=== PATIENT | female | born 1970 | race Caucasian/White ===

== ENCOUNTER 2017-02-10 06:04 | Inpatient (IN) | payer OTHER ==
[~2017-02-10] VITALS: Ht 165.1 cm; Wt 65.0 kg
[2017-02-10] VITALS (9 sets, daily range): BP systolic 75–92; BP diastolic 45–64; PULSE 88–94; RESP 16–20; Ht 165.1 cm; Wt 65.0 kg
[2017-02-10] MEDS ORDERED: NACL 0.9% 3 ML SYG IV SCH (07:30)
[2017-02-10] MEDS ORDERED: ONDANSETRON 4 MG INJ IV PRN (07:30)
[2017-02-10] MEDS ORDERED: SOD CHLORIDE 0.9% 1,000 ML IV ONE (07:40)
[2017-02-10] MEDS: SOD CHLORIDE 0.9% 1,000 ML IV SCH ×4 (07:40→18:30)
[2017-02-10 08:17] LABS: HAAIG REFLEX REFLEX FILED
[2017-02-10 08:25] LABS: ABNORMAL IP MESSAGE 1; HEMATOCRIT 29.4 % (37.0-47.0); HEMOGLOBIN 10.1 g/dl (12.0-16.0); MEAN CORPUSCULAR HEMOGLOBIN 29.4 pg (29.0-33.0); MEAN CORPUSCULAR HGB CONC 34.4 g/dl (32.0-37.0); MEAN CORPUSCULAR VOLUME 85.7 fl (82.0-101.0); MEAN PLATELET VOLUME 10.6 fl (7.4-10.4); PLATELET COUNT 64 10^3/UL (140-415); RED BLOOD COUNT 3.43 10^6/ul (4.20-5.40); RED CELL DISTRIBUTION WIDTH 18.7 % (11.5-14.5); WHITE BLOOD COUNT 19.1 10^3/ul (4.8-10.8)
[2017-02-10 08:27] LABS: POSITIVE DIFF @See below
[2017-02-10 08:43] LABS: ALANINE AMINOTRANSFERASE 110 IU/L (13-69); ALBUMIN 1.8 g/dl (3.3-4.9); ALBUMIN/GLOBULIN RATIO 0.41; ALKALINE PHOSPHATASE 293 IU/L (42-121); ANION GAP 11 (8-16); ASPARTATE AMINO TRANSFERASE 123 IU/L (15-46); BILIRUBIN,INDIRECT 1.3 mg/dl (0-1.1); BLOOD UREA NITROGEN 59 mg/dl (7-20); CALCIUM 6.8 mg/dl (8.4-10.2); CARBON DIOXIDE 24 mmol/L (21-31); CHLORIDE 97 mmol/L (97-110); CREATININE 1.79 mg/dl (0.44-1.00); GLUCOSE 96 mg/dl (70-220); POTASSIUM 3.2 mmol/L (3.5-5.1); SODIUM 129 mmol/L (135-144); TOTAL PROTEIN 6.1 g/dl (6.1-8.1)
[2017-02-10 08:45] LABS: IRON 36 ug/dl (35-150)
[2017-02-10 08:54] LABS: TOTAL IRON BINDING CAPACITY 144 ug/dl (241-421)
[2017-02-10 09:05] LABS: ANISOCYTOSIS 2+ (0-0); HYPOCHROMASIA 1+ (0-0); MONOCYTES % (M) 2 % (0-11); PLATELET ESTIMATE SIG DECREASED; POIKILOCYTOSIS 2+ (0-0); POLYCHROMASIA 3+ (0-0)
--- NOTE | 2017-02-10 09:26 | RADRPT ---
PROCEDURE: US Abdomen. CLINICAL INDICATION: elevated LFTs TECHNIQUE: Multiple real-time images were acquired of the patient's abdomen and retroperitoneum ut ilizing a high resolution transducer. COMPARISON: None FINDINGS: The liver demonstrates increased echogenicity. The liver is normal in size and no focal solid lesio ns are seen. The liver measures 16.2 cm in length. The portal vein is patent with normal direction o f flow. No intrahepatic biliary dilatation is seen. The patient is status post cholecystectomy. The common bile duct measures 6.5 mm in maximal dimensio n. The visualized portions of the pancreas are unremarkable. The tail of the pancreas is not seen. No free fluid is identified. The right kidney is normal in size, and demonstrate normal echogenicity and cortical thickness. The right kidney measures 13.0 cm in long dimension. There is no evidence of hydronephrosis. There are no kidney stones. IMPRESSION: Fatty infiltration of the liver.. Status post cholecystectomy. RPTAT: AA .Milton Austin MD, MD Date Time Electronically viewed and signed by .Milton Austin MD, on 02/10/2017 09:25 .S/
[2017-02-10 09:32] LABS: HEPATITIS B CORE ANTIBODY NEGATIVE (NEGATIVE)
--- NOTE | 2017-02-10 10:21 | HP ---
Date/Time of Note Date/Time of Note DATE: 02/10/17 TIME: 10:15 Assessment/Plan VTE Prophylaxis VTE Prophylaxis Intervention: SCD's Assessment/Plan Assessment/Plan 47 yo F with pmhx HTN admitted for fatigue, chills, scleral icterus. Labwork notable for +Monospot, +HepC Ab, and splenomegaly. I suspect the etiology of the patient's hyperbilirubinemia (which is the cause of her scleral icterus), splenomegaly, transaminitis, and leukocytosis are all the result of acute viral mononucleosis infection. While mono does often typically result in hyperbilirubinemia, it has been described in the literature. Abd imaging without liver mass or lesion. No pancreatic mass. No biliary obstruction PLAN supportive care trend LFTs check HepC VL Check HIV repeat EBV serologies as lab dept at [facility] unable to tell me what their mono test is check CMV serologies check UA and urine culture given c/o dysuria no compelling indication for abx at this time reference Chayo Roca, Ray Reynoso, Florentino Morrison, Jacinto Hicks, Kassie Hicks, Deepak Quinn, Rodney Humphrey, Torey Richardson. Marked Hyperbilirubinemia in Infectious MononucleosisAnalysis of Laboratory Data in Seven Patients. [employer]. 1987;147(5):[id number] HPI/ROS Admit Date/Time Admit Date/Time Feb 10, 2017 at 06:25 Hx of Present Illness CC: chills, generalized feeling unwell x 3 weeks HPI 47 yo F with pmhx HTN transferred from [facility] where she presented with feeling unwell x 3 weeks and 2 days of scleral icterus. Pt reports that for the past 3 weeks she has been fatigued, has been having chills, decreased appetite, nausea. No fever. no rashes. no leg swelling. Does not recall ever previously being diagnosed with HepC. Also c/o dysuria. Soc Hx: pt denies any hx of IVDU. only previous blood transfusion was 2 years ago in the [place] SurgHx: unknown previous abd surgery (pt states "vesicle" surgery) Exam/Review of Systems Vital Signs Vitals Vital Signs Date Time Temp Pulse Resp B/P Pulse Ox O2 Delivery O2 Flow Rate FiO2 02/10/17 08:00 94 02/10/17 07:52 97.8 20 86/50 95 02/10/17 07:00 Room Air Exam Exam +scleral icterus no cervical LAD MMM EOMI lungs clear rrr abd soft with palpable liver tip no le edema OSH Lab notable for WBCs 20.3, Hgb 12.2, Pl 76 NA 128, K 3.4, Cl 93, Cr 2.3 albumin 1.5, AP 266, ALT 109, AST 132 TBili 13.6, DBili 8.3 Monospot +??? UA with small blood, large LE, many bacteria IMAGING CT AP: marked splenomegaly, 15x5 x 13 cm. no liver mass, in biliary tree dilation, no pancreatic head mass, no ascites blood cultures x 2 still in process Labs Result Diagram: 02/10/1774402/10/17 0745 Medications Medications Current Medications Sodium Chloride (NS) 1,000 ml @ 125 mls/hr Q8H IV Last administered on t 07:40; Admin Dose 125 MLS/HR; Start 02/10/17 at 07:40 Ondansetron HCl (Zofran Inj) 4 mg Q6H PRN IV NAUSEA AND/OR VOMITING; Start at 07:30 Acetaminophen (Tylenol Tab) 650 mg Q6H PRN PO PAIN LEVEL 1-3 OR FEVER; Start 02/10/17 at 07:30 LAUREN CHOI MD Feb 10, 2017 10:21
[2017-02-10] MEDS: ACETAMINOPHEN 325 MG TAB PO PRN (12:58)
[2017-02-10] MEDS: IBUPROFEN 200 MG TAB PO PRN (17:16)
[2017-02-10] MEDS ORDERED: ALBUMIN HUMAN 25% IV* ONE (19:00)
[2017-02-11 00:29] LABS: ADD UMIC YES; UR AMORPHOUS CRYSTAL FEW /HPF (NONE SEEN); UR ASCORBIC ACID NEGATIVE (NEGATIVE); UR BACTERIA FEW /HPF (NONE SEEN); UR BILIRUBIN (Dip) 2+ mg/dL (NEGATIVE); UR BLOOD (Dip) 2+ mg/dL (NEGATIVE); UR CLARITY SLIGHTLY CLOUDY (CLEAR); UR COLOR AMBER (YELLOW); UR GLUCOSE (Dip) NEGATIVE (NEGATIVE); UR KETONES (Dip) NEGATIVE (NEGATIVE); UR LEUKOCYTE ESTERASE (Dip) TRACE Leu/ul (NEGATIVE); UR NITRITE (Dip) NEGATIVE (NEGATIVE); UR RBC 23 /HPF (0-5); UR SPECIFIC GRAVITY (Dip) 1.013 (1.003-1.030); UR SQUAMOUS EPITHELIAL CELL FEW /HPF (FEW); UR TOTAL PROTEIN (Dip) 1+ mg/dl (NEGATIVE); UR UROBILINOGEN (Dip) 2+ mg/dL (NEGATIVE)
[2017-02-11] MEDS: AL HYDROX/MG HYDROX/SIMETH 30 ML CUP PO PRN (00:58)
[2017-02-11] MEDS: SOD CHLORIDE 0.9% 1,000 ML IV SCH ×2 (01:50→09:45)
[2017-02-11 02:29] VITALS: BP 90/58; RESP 16
[2017-02-11 06:22] LABS: ABNORMAL IP MESSAGE 1; HEMATOCRIT 26.7 % (37.0-47.0); HEMOGLOBIN 9.2 g/dl (12.0-16.0); MEAN CORPUSCULAR HEMOGLOBIN 29.7 pg (29.0-33.0); MEAN CORPUSCULAR HGB CONC 34.5 g/dl (32.0-37.0); MEAN CORPUSCULAR VOLUME 86.1 fl (82.0-101.0); MEAN PLATELET VOLUME 10.3 fl (7.4-10.4); PLATELET COUNT 68 10^3/UL (140-415); RED CELL DISTRIBUTION WIDTH 19.3 % (11.5-14.5); WHITE BLOOD COUNT 19.6 10^3/ul (4.8-10.8)
[2017-02-11 07:01] LABS: MAGNESIUM 1.9 mg/dl (1.7-2.5)
[2017-02-11 07:02] LABS: ALBUMIN 1.7 g/dl (3.3-4.9); ALBUMIN/GLOBULIN RATIO 0.44; BILIRUBIN,DIRECT 7.9 mg/dl (0.00-0.20); BILIRUBIN,INDIRECT 1.1 mg/dl (0-1.1); CALCIUM 6.4 mg/dl (8.4-10.2); CREATININE 1.67 mg/dl (0.44-1.00); POTASSIUM 3.2 mmol/L (3.5-5.1); TOTAL PROTEIN 5.5 g/dl (6.1-8.1)
[2017-02-11 07:23] LABS: POSITIVE DIFF @See below
[2017-02-11 08:04] VITALS: BP 97/59; RESP 16
[2017-02-11 08:52] LABS: ANISOCYTOSIS 2+ (0-0); EOSINOPHILS % (M) 1 % (0-7); HYPOCHROMASIA 1+ (0-0); MONOCYTES % (M) 3 % (0-11); PLATELET ESTIMATE DECREASED; POIKILOCYTOSIS 2+ (0-0); POLYCHROMASIA 2+ (0-0)
[2017-02-11] MEDS: FAMOTIDINE 20 MG TAB PO SCH ×2 (09:45→21:13)
[2017-02-11 12:56] LABS: INR 2.72; PROTIME 29.2 Sec (12.2-14.2); PT RATIO 2.3
[2017-02-11 12:57] LABS: PARTIAL THROMBOPLASTIN TIME 49.6 Sec (25.0-35.0)
--- NOTE | 2017-02-11 14:47 | RADRPT ---
PROCEDURE: XR chest CLINICAL INDICATION: Diminished lung bases TECHNIQUE: PA and lateral views COMPARISON: None available FINDINGS: The cardiac silhouette is at the upper limits of normal in size versus borderline enlarged. The medi astinum and pulmonary syed are otherwise unremarkable. Pulmonary vasculature is within normal limits. Bilateral costophrenic sulci blunting which may be secondary to small pleural effusions versus pleur al thickening. Bilateral lower lobe parenchymal disease, possibly from atelectasis, though pneumoni tis is also in the differential diagnosis. Scattered bilateral lung micronodular opacities could rep resent vessels on end, but lung micronodules are also in the differential diagnosis. Small nodular o pacity overlying the anterior aspect of right rib # 7 and the posterior aspect of right rib # 9 coul d be an artifact versus sclerotic finding in bone versus lung nodule. Borderline low lung volumes. Spondylosis of the visualized spine. IMPRESSION: 1. Cardiac silhouette at the upper limits of normal size versus borderline enlarged. Bilateral small pleural effusions versus pleural thickening. 2. Bilateral lower lobe parenchymal disease, possibly from atelectasis, but pneumonitis is also in t he differential diagnosis. Borderline low lung volumes. 3. Scattered bilateral lung micronodular opacities could represent vessels on end, but lung microno dules are also in the differential diagnosis. Right lower lung zone small nodular opacity could be a n artifact versus sclerotic finding in bone versus lung nodule. Compare to prior corresponding imaging studies. RPTAT: TT Physician Nicole Date Time Electronically viewed and signed by Physician Nicole on 02/11/2017 14:47 JS/
[2017-02-11 15:16] VITALS: BP 101/59; RESP 18
--- NOTE | 2017-02-11 18:38 | PN ---
Date/Time of Note Date/Time of Note DATE: 02/11/17 TIME: 18:33 Assessment/Plan VTE Prophylaxis VTE Prophylaxis Intervention: SCD's Lines/Catheters IV C[facility]ter Type (from [facility]): Peripheral IV Assessment/Plan Assessment/Plan 47 yo F with pmhx HTN admitted for fatigue, chills, scleral icterus. Labwork notable for +Monospot, +HepC Ab, and splenomegaly. Abd imaging without liver mass or lesion. No pancreatic mass. No biliary obstruction. Consider acute CMV? Labs for AIH negative thus far. Of concern is patient's splenomegaly, hypoalbuminemia and non nephrotic range proteinuria. She is also coagulopathic. Pt's labs overall are concerning for acute liver failure, etiology of which is unclear but patient without encephalopathy PLAN supportive care trend LFTs EBV serologies consistent with previous exposure and not acute infection, HIV neg; CMV serologies in process; SmAb neg. hep C VL in process add on apap level though pt has already been here for 2 days and has been having symptoms for 3 weeks HSV IgMs active UA, urine culture ng thus far. GI/hepatology consult Subjective 24 Hr Interval Summary Free Text/Dictation reports legs are now a little swollen and her abdomen feels distended pt denies any use of new vitamins/supplements in recent weeks Exam/Review of Systems Vital Signs Vitals Vital Signs Date Time Temp Pulse Resp B/P Pulse Ox O2 Delivery O2 Flow Rate FiO2 02/11/17 15:16 97.4 82 18 101/59 100 02/10/17 13:15 Room Air Intake and Output 02/10/17 02/10/17 02/11/17 15:00 23:00 07:00 Intake Total 400 ml 1500 ml Output Total 300 ml Balance 100 ml 1500 ml Exam scleral icterus not significantly improved no mrg lungs clear alpha 1 AT nl, SmAB neg, AFP nl EBV seros cw previous exposure/infection HIV neg hepA blood work with previous infection/exposure HepB bloodwork negative Additional Comments CXR Results Result Diagram: 02/11/17 0514 02/11/17 0514 Results 24 hrs Laboratory Tests Test 02/10/17 22:00 02/11/17 05:14 02/11/17 11:34 02/11/17 13:20 Urine Color JANETTE Urine Clarity SLIGHTLY CLOUDY A Urine pH 5.0 Urine Specific [place] 1.013 Urine Ketones NEGATIVE Urine Nitrite NEGATIVE Urine Bilirubin 2+ H Urine Urobilinogen 2+ H Urine Leukocyte Esterase TRACE A Urine Microscopic RBC 23 H Urine Microscopic WBC 5 Urine Squamous Epithelial Cells FEW Urine Amorphous Crystals FEW A Urine Bacteria FEW A Urine Hemoglobin 2+ H Urine Glucose NEGATIVE Urine Total Protein 1+ H 34.0 H White Blood Count 19.6 H Red Blood Count 3.10 L Hemoglobin 9.2 L Hematocrit 26.7 L Mean Corpuscular Volume 86.1 Mean Corpuscular Hemoglobin 29.7 Mean Corpuscular Hemoglobin Concent 34.5 Red Cell Distribution Width 19.3 H Platelet Count 68 L Mean Platelet Volume 10.3 Neutrophils % Segmented Neutrophils % (Manual) 74 Band Neutrophils % (Manual) 20 H Lymphocytes % Lymphocytes % (Manual) 2 L Monocytes % Monocytes % (Manual) 3 Eosinophils % Eosinophils % (Manual) 1 Basophils % Nucleated Red Blood Cells % 0.0 Neutrophils # Neutrophils # (Manual) 15.3 H Band Neutrophils # 3.9 H Absolute Lymphocytes (Manual) 0.3 L Lymphocytes # Monocytes # Absolute Monocytes (Manual) 0.5 Eosinophils # Basophils # Nucleated Red Blood Cells # Platelet Estimate DECREASED Polychromasia 2+ Hypochromasia 1+ Poikilocytosis 2+ Anisocytosis 2+ Macrocytosis 2+ Sodium Level 131 L Potassium Level 3.2 L Chloride Level 100 Carbon Dioxide Level 19 L Anion Gap 15 Blood Urea Nitrogen 53 H Creatinine 1.67 H Glucose Level 97 Calcium Level 6.4 L Phosphorus Level 5.0 H Magnesium Level 1.9 Total Bilirubin 9.0 H Direct Bilirubin 7.90 H Indirect Bilirubin 1.1 Aspartate Amino Transf (AST/SGOT) 113 H Alanine Aminotransferase (ALT/SGPT) 107 H Alkaline Phosphatase 332 H Total Protein 5.5 L Albumin 1.7 L Globulin 3.80 H Albumin/Globulin Ratio 0.44 HIV (1&2) Antibody NEGATIVE Prothrombin Time 29.2 H Prothrombin Time Ratio 2.3 INR International Normalized Ratio 2.72 Activated Partial Thromboplast Time 49.6 H Urine Random Creatinine 72.66 Test 02/11/17 14:24 Lactic Acid Level 2.1 H Medications Medications Current Medications Ondansetron HCl (Zofran Inj) 4 mg Q6H PRN IV NAUSEA AND/OR VOMITING; Start at 07:30 Acetaminophen (Tylenol Tab) 650 mg Q6H PRN PO PAIN LEVEL 1-3 OR FEVER Last administered on 02/10/17 12:58; Admin Dose 650 MG; Start 02/10/17 at 07:30 Ibuprofen (Motrin) 200 mg Q6H PRN PO PAIN OR TEMP ABOVE 38C Last administered on 02/10/17 17:16; Admin Dose 200 MG; Start 02/10/17 at 15:30 Famotidine (Pepcid) 20 mg BID PO Last administered on 02/11/17 09:45; Admin Dose 20 MG; Start 02/11/17 at 09:00 Al Hydrox/Mg Hydrox/Simethicone (Mag-Al Plus) 30 ml Q6H PRN PO GASTROINTESTINAL UPSET Last administered on 02/11/17 00:58; Admin Dose 30 ML; Start 02/11/17 at 01:00 LAUREN CHOI MD Feb 11, 2017 18:38
[2017-02-11] MEDS: IBUPROFEN 200 MG TAB PO PRN (19:53)
[2017-02-11 20:00] VITALS: BP 100/52; PULSE 89; RESP 18
[2017-02-11] MEDS: traZODone 50 MG TAB PO SCH (21:13)
[2017-02-12 02:00] VITALS: BP 110/62; PULSE 92; RESP 18
[2017-02-12 06:17] LABS: ALBUMIN 1.7 g/dl (3.3-4.9); ALBUMIN/GLOBULIN RATIO 0.42; BILIRUBIN,DIRECT 8.1 mg/dl (0.00-0.20); BILIRUBIN,INDIRECT 1.1 mg/dl (0-1.1); BILIRUBIN,TOTAL 9.2 mg/dl (0.2-1.3); CALCIUM 6.9 mg/dl (8.4-10.2); CREATININE 1.49 mg/dl (0.44-1.00); POTASSIUM 3.6 mmol/L (3.5-5.1); TOTAL PROTEIN 5.7 g/dl (6.1-8.1)
[2017-02-12 06:22] LABS: MAGNESIUM 2.1 mg/dl (1.7-2.5); PHOSPHORUS 5.2 mg/dl (2.5-4.9)
[2017-02-12 06:46] LABS: INR 2.46; PT RATIO 2.1
[2017-02-12 08:07] VITALS: BP 101/85; PULSE 82; RESP 18
[2017-02-12] MEDS: FAMOTIDINE 20 MG TAB PO SCH (08:09)
[2017-02-12] MEDS: IBUPROFEN 200 MG TAB PO PRN ×2 (08:13→19:15)
--- NOTE | 2017-02-12 09:18 | CONS ---
Date/Time of Note Date/Time of Note DATE: 02/12/17 TIME: 09:09 Assessment/Plan Assessment/Plan Chief Complaint/Hosp Course Assessment: Cholestatic jaundice Rule out CMV hepatitis Rule out biliary obstruction Doubt drug-induced Prolonged INR, concerning for significant liver dysfunction Postcholecystectomy 1996 High blood pressure Plan: Vitamin K, repeat INR CMV serologies, Ammonia MRCP Monitor liver panel Problems: Consultation Date/Type/Reason Admit Date/Time Feb 10, 2017 at 06:25 Date of Consultation: Feb 12, 2017 Type of Consultation: GI Reason for Consultation Cholestasis/jaundice Hx of Present Illness 47-year-old female hospitalized with jaundice. Initial laboratories apparently reported a positive mono test recent possibility of mono hepatitis. EBV serology is positive for IgG but negative for IgM suggesting previous exposure no acute infection. The patient does not have other symptoms suggestive of mononucleosis or Nicolle-Ruggiero virus infection. Hepatitis serology is negative for hepatitis a and B and positive for antibodies hepatitis C HCV RNA is pending. Patient is postcholecystectomy many years prior. Liver ultrasound does not show significant dilatation of the biliary tree but possibility of obstruction needs to be ruled out entirely and for this reason MRCP will be requested. In addition I will request cytomegalovirus serologies which could also be associated with cholestatic hepatitis which appears to be the presentation of this patient. At the present time the patient complains of moderate upper abdominal discomfort and some nausea when she eats heavy meals. There is no fever, chills or diaphoresis. There is no lymphocytosis. The patient is on amlodipine and trazodone which she has been taking for some time and those drugs are not associated frequently with cholestatic liver disease. If further serologies and MRCP are negative the patient may be considered for liver biopsy. Of concern her INR is elevated vitamin K will be administered failure to correct will raise some concerns about liver function. There is no evidence of encephalopathy of any degree. Ammonia levels will also be requested. Past Medical History High blood pressure Past Surgical History Cholecystectomy 1996 Family History Significant Family History: no pertinent family hx Social History Alcohol Use: none Smoking Status: Never smoker Drug Use: none Exam/Review of Systems Vital Signs Vitals Vital Signs Date Time Temp Pulse Resp B/P Pulse Ox O2 Delivery O2 Flow Rate FiO2 02/12/17 08:07 98.7 82 18 101/85 98 Room Air Intake and Output 02/11/17 02/11/17 02/12/17 15:00 23:00 07:00 Intake Total 620 ml 1760 ml 360 ml Output Total 200 ml 700 ml Balance 420 ml 1060 ml 360 ml Exam PHYSICAL EXAMINATION: GENERAL: Well developed, well nourished, alert & oriented x 3, in no acute distress SKIN: Jaundice. Otherwise no lesions, no stigmata chronic liver disease, no evidence of bleeding diathesis LYMPHATIC: No palpable lymphadenopathy. HEAD: Normocephalic, atraumatic, no tenderness. EYES: Pupils equal reactive to light and accommodation, full extraocular movements, sclera clear, non-icteric, no discharge. EARS/NOSE AND THROAT: Ears normal, nose normal, oropharynx normal, oral membranes well hydrated without lesions. NECK: Supple, no masses, thyroid normal, JVP within normal limits, carotids normal without bruits. CHEST: Inspection within normal limits. CARDIOVASCULAR: Heart: Regular rate and rhythm, no murmurs, gallops or rubs. Peripheral pulses present within normal limits, no cyanosis, clubbing or edemas. No pulsatile abdominal mass RESPIRATORY: Lungs clear to auscultation and percussion, no wheezing, no rubs GASTROINTESTINAL AND LIVER: Abdomen: Soft, mild tenderness in the epigastrium and right upper quadrant, non-distended, no hernias, no masses, no organomegaly , no ascites, no Taylor sign, no guarding, no rebound tenderness, normoactive bowel sounds. Rectal: Deferred. GENITOURINARY: [Female genitalia within normal limits.] EXTREMITIES: No cyanosis, clubbing or edema. [MUSCULO-SKELETAL: Gait and station within normal limits, range of motion adequate.] [NEUROLOGIC: Cranial nerves II-XII intact, Motor within normal limits, Sensory within normal limits. Reflexes within normal limits. PSYCHIATRIC: Alert & oriented x 3, mood/affect/judgement adequate] Results Result Diagram: 02/11/17 0514 02/12/17 0514 Results 24 hrs Laboratory Tests Test 02/11/17 11:34 02/11/17 13:20 02/11/17 14:24 02/11/17 20:19 Prothrombin Time 29.2 H Prothrombin Time Ratio 2.3 INR International Normalized Ratio 2.72 Activated Partial Thromboplast Time 49.6 H Urine Random Creatinine 72.66 Urine Total Protein 34.0 H Lactic Acid Level 2.1 H Gamma Glutamyl Transpeptidase 293 H Acetaminophen Level < 10.0 L Test 02/12/17 05:14 Prothrombin Time 27.0 H Prothrombin Time Ratio 2.1 INR International Normalized Ratio 2.46 Sodium Level 131 L Potassium Level 3.6 Chloride Level 103 Carbon Dioxide Level 19 L Anion Gap 13 Blood Urea Nitrogen 48 H Creatinine 1.49 H Glucose Level 98 Calcium Level 6.9 L Phosphorus Level 5.2 H Magnesium Level 2.1 Total Bilirubin 9.2 H Direct Bilirubin 8.10 H Indirect Bilirubin 1.1 Aspartate Amino Transf (AST/SGOT) 129 H Alanine Aminotransferase (ALT/SGPT) 116 H Alkaline Phosphatase 429 H Total Protein 5.7 L Albumin 1.7 L Globulin 4.00 H Albumin/Globulin Ratio 0.42 Medications Medications Current Medications Ondansetron HCl (Zofran Inj) 4 mg Q6H PRN IV NAUSEA AND/OR VOMITING; Start at 07:30 Acetaminophen (Tylenol Tab) 650 mg Q6H PRN PO PAIN LEVEL 1-3 OR FEVER Last administered on 02/10/17 12:58; Admin Dose 650 MG; Start 02/10/17 at 07:30 Ibuprofen (Motrin) 200 mg Q6H PRN PO PAIN OR TEMP ABOVE 38C Last administered on 02/12/17 08:13; Admin Dose 200 MG; Start 02/10/17 at 15:30 Famotidine (Pepcid) 20 mg BID PO Last administered on 02/12/17 08:09; Admin Dose 20 MG; Start 02/11/17 at 09:00 Al Hydrox/Mg Hydrox/Simethicone (Mag-Al Plus) 30 ml Q6H PRN PO GASTROINTESTINAL UPSET Last administered on 02/11/17 00:58; Admin Dose 30 ML; Start 02/11/17 at 01:00 Trazodone HCl (Desyrel) 50 mg HS PO Last administered on 02/11/17 21:13; Admin Dose 50 MG; Start 02/11/17 at 21:00 Morphine Sulfate (morphine) 1 mg Q4H PRN IV pain; Start 02/11/17 at 19:30 UNA BRADSHAW MD Feb 12, 2017 09:18
[2017-02-12] MEDS: PHYTONADIONE 10 MG/ML INJ SC SCH ×2 (10:33→21:04)
[2017-02-12 11:00] LABS: INR 2.48; PROTIME 27.1 Sec (12.2-14.2); PT RATIO 2.1
--- NOTE | 2017-02-12 16:30 | PN ---
Date/Time of Note Date/Time of Note DATE: 02/12/17 TIME: 16:28 Assessment/Plan VTE Prophylaxis VTE Prophylaxis Intervention: SCD's Lines/Catheters IV Catheter Type (from Nrsg): Peripheral IV Assessment/Plan Assessment/Plan 47 yo F with pmhx HTN admitted for fatigue, chills, scleral icterus found to have evidence of hepatic dysfunction of unclear etiology (hyperbilirubinemia, transaminitis, coagulopathy) PLAN much appreciate GI/hepatology assistance. MRCP pending supportive care trend LFTs EBV serologies consistent with previous exposure and not acute infection, HIV neg; CMV serologies in process; SmAb neg. hep C VL in process, apap level negative, HSV IgMs active UA, urine culture negative. consider repeating UA closer to discharge Subjective 24 Hr Interval Summary Free Text/Dictation abd pain unchanged Exam/Review of Systems Vital Signs Vitals Vital Signs Date Time Temp Pulse Resp B/P Pulse Ox O2 Delivery O2 Flow Rate FiO2 02/12/17 08:07 98.7 82 18 101/85 98 Room Air Intake and Output 02/11/17 02/11/17 02/12/17 15:00 23:00 07:00 Intake Total 620 ml 1760 ml 360 ml Output Total 200 ml 700 ml Balance 420 ml 1060 ml 360 ml Exam jaundiced responds to questions appropriately-->no evidence of encephalopathy no mrg abd soft no rashes Results Result Diagram: 02/11/1714 02/12/1714 Results 24 hrs Laboratory Tests Test 02/11/17 20:19 02/12/17 05:14 02/12/17 10:02 Gamma Glutamyl Transpeptidase 293 H Acetaminophen Level < 10.0 L Prothrombin Time 27.0 H 27.1 H Prothrombin Time Ratio 2.1 2.1 INR International Normalized Ratio 2.46 2.48 Sodium Level 131 L Potassium Level 3.6 Chloride Level 103 Carbon Dioxide Level 19 L Anion Gap 13 Blood Urea Nitrogen 48 H Creatinine 1.49 H Glucose Level 98 Calcium Level 6.9 L Phosphorus Level 5.2 H Magnesium Level 2.1 Total Bilirubin 9.2 H Direct Bilirubin 8.10 H Indirect Bilirubin 1.1 Aspartate Amino Transf (AST/SGOT) 129 H Alanine Aminotransferase (ALT/SGPT) 116 H Alkaline Phosphatase 429 H Total Protein 5.7 L Albumin 1.7 L Globulin 4.00 H Albumin/Globulin Ratio 0.42 Ammonia 72 H Medications Medications Current Medications Ondansetron HCl (Zofran Inj) 4 mg Q6H PRN IV NAUSEA AND/OR VOMITING; Start at 07:30 Acetaminophen (Tylenol Tab) 650 mg Q6H PRN PO PAIN LEVEL 1-3 OR FEVER Last administered on 02/10/17 12:58; Admin Dose 650 MG; Start 02/10/17 at 07:30 Ibuprofen (Motrin) 200 mg Q6H PRN PO PAIN OR TEMP ABOVE 38C Last administered on 02/12/17 08:13; Admin Dose 200 MG; Start 02/10/17 at 15:30 Al Hydrox/Mg Hydrox/Simethicone (Mag-Al Plus) 30 ml Q6H PRN PO GASTROINTESTINAL UPSET Last administered on 02/11/17 00:58; Admin Dose 30 ML; Start 02/11/17 at 01:00 Trazodone HCl (Desyrel) 50 mg HS PO Last administered on 02/11/17 21:13; Admin Dose 50 MG; Start 02/11/17 at 21:00 Morphine Sulfate (morphine) 1 mg Q4H PRN IV pain; Start 02/11/17 at 19:30 Phytonadione (Vitamin K) 10 mg Q12 SC Last administered on 02/12/17 10:33; Admin Dose 10 MG; Start 02/12/17 at 09:30; Stop 02/14/17 at 00:00 LAUREN CHOI MD Feb 12, 2017 16:30
[2017-02-12 20:00] VITALS: BP 82/51; PULSE 79; RESP 18
[2017-02-12] MEDS: traZODone 50 MG TAB PO SCH (21:03)
--- NOTE | 2017-02-12 21:27 | RADRPT ---
PROCEDURE: MRCP. CLINICAL INDICATION: Elevated liver function tests. Jaundice. TECHNIQUE: MRCP was performed. The following sequences were obtained: Three plane gradient echo localizers, coronal gradient echo images, breath hold axial T2-weighted fat saturation images, le nal T2-weighted images, axial 3-D LAVA images, axial T2-weighted breath hold fast spin echo images, and 3-D coronal rotating MIP images of the biliary tree. COMPARISON: Right upper quadrant abdomen ultrasound dated 02/10/2017. FINDINGS: This is a limited study due to artifact overlying the liver hilum region related to dielectric effec t artifact. The liver is normal in size. There is normal signal intensity within the liver. There is no focal hepatic lesion. The spleen is enlarged. There is mild ascites and subcutaneous adipose tissue edema. The gallbladder is surgically absent. The visualized portions of the bile ducts are normal. However, there is some artifact overlying the bile ducts. The pancreatic duct is grossly normal. The kidneys are grossly normal. The abdominal aorta is not dilated. IMPRESSION: 1. Limited study due to artifact as described above. 2. Splenomegaly. 3. Mild ascites and subcutaneous adipose tissue edema. 4. Status post cholecystectomy. 5. Grossly normal appearance of the bile ducts. RPTAT: QQ .Jesse Watson MD, MD Date Time Electronically viewed and signed by .Jesse Watson MD, on 02/12/2017 21:26 .R/
[2017-02-13] MEDS: IBUPROFEN 200 MG TAB PO PRN ×2 (01:40→09:35)
[2017-02-13 02:00] VITALS: BP 99/56; PULSE 80; RESP 18
[2017-02-13 05:50] LABS: ABNORMAL IP MESSAGE 1; BASOPHILS % 0.4 % (0.0-2.0); EOSINOPHILS # 0.1 10^3/ul (0.0-0.5); EOSINOPHILS % 0.7 % (0.0-7.0); HEMATOCRIT 25.7 % (37.0-47.0); LYMPHOCYTES # 0.6 10^3/ul (0.8-2.9); LYMPHOCYTES % 7.1 % (15.0-51.0); MEAN CORPUSCULAR HEMOGLOBIN 29.7 pg (29.0-33.0); MEAN CORPUSCULAR VOLUME 84.8 fl (82.0-101.0); MEAN PLATELET VOLUME 9.6 fl (7.4-10.4); MONOCYTE # 0.8 10^3/ul (0.3-0.9); MONOCYTES % 9.1 % (0.0-11.0); NEUTROPHIL # 6.8 10^3/ul (1.6-7.5); NEUTROPHILS % 80.6 % (39.0-77.0); PLATELET COUNT 81 10^3/UL (140-415); RED BLOOD COUNT 3.03 10^6/ul (4.20-5.40); RED CELL DISTRIBUTION WIDTH 19.7 % (11.5-14.5); WHITE BLOOD COUNT 8.4 10^3/ul (4.8-10.8)
[2017-02-13 06:00] LABS: POSITIVE DIFF @See below
[2017-02-13 07:11] LABS: ALBUMIN 1.6 g/dl (3.3-4.9); ALBUMIN/GLOBULIN RATIO 0.37; BILIRUBIN,DIRECT 8.3 mg/dl (0.00-0.20); BILIRUBIN,INDIRECT 1.4 mg/dl (0-1.1); BILIRUBIN,TOTAL 9.7 mg/dl (0.2-1.3); CALCIUM 7.3 mg/dl (8.4-10.2); CREATININE 1.46 mg/dl (0.44-1.00); POTASSIUM 3.7 mmol/L (3.5-5.1); TOTAL PROTEIN 5.9 g/dl (6.1-8.1)
[2017-02-13 07:16] LABS: MAGNESIUM 2.1 mg/dl (1.7-2.5); PHOSPHORUS 4.8 mg/dl (2.5-4.9)
[2017-02-13 08:03] VITALS: BP 159/84; RESP 14
[2017-02-13] MEDS: PHYTONADIONE 10 MG/ML INJ SC SCH ×2 (09:35→21:27)
--- NOTE | 2017-02-13 11:58 | PN ---
Date/Time of Note Date/Time of Note DATE: 02/13/17 TIME: 11:49 Assessment/Plan VTE Prophylaxis VTE Prophylaxis Intervention: SCD's Lines/Catheters IV [facility]from [facility]): Saline Lock Assessment/Plan Chief Complaint/Hosp Course Assessment/Plan: 47 yo F with pmhx HTN admitted for fatigue, chills, scleral icterus found to have evidence of hepatic dysfunction of unclear etiology ( hyperbilirubinemia, transaminitis, coagulopathy) 1. weakness: Patient with hepatic dysfunction. Slowly improving, patient still with jaundice and elevated LFT's. Much appreciate GI/hepatology assistance. MRCP results noted below. Patient with positive IgG EBV titer, consistent with previous exposure and not acute infection. HIV neg; CMV serologies in process; SmAb neg. hep C VL in process, apap level negative, HSV IgMs. -Continue supportive care - trend LFTs -Follow-up GI recommendations -Consider PT eval 2. ESLD -patient again with elevated liver function tests, positive jaundice, also elevated ammonia levels, but awake and alert answering questions. -Trend ammonia levels, consider adding low-dose lactulose. 3. WILLIAM -slowly improving, still present. Will cont to monitor Problems: Subjective 24 Hr Interval Summary Free Text/Dictation Patient complaining of some abdominal pain this morning. Exam/Review of Systems Vital Signs Vitals Vital Signs Date Time Temp Pulse Resp B/P Pulse Ox O2 Delivery O2 Flow Rate FiO2 02/13/17 08:03 97.9 72 14 159/84 98 02/13/17 02:00 Room Air Intake and Output 02/12/17 02/12/17 02/13/17 15:00 23:00 07:00 Intake Total 500 ml Balance 500 ml Exam responds to questions appropriately-->no evidence of encephalopathy + jaundice Pupils equal round reactive to light, extra muscles intact Supple no mrg abd soft no rashes Results Result Diagram: 02/13/17 0454 02/13/17 0454 Results 24 hrs Laboratory Tests Test 02/13/17 04:54 White Blood Count 8.4 # Red Blood Count 3.03 L Hemoglobin 9.0 L Hematocrit 25.7 L Mean Corpuscular Volume 84.8 Mean Corpuscular Hemoglobin 29.7 Mean Corpuscular Hemoglobin Concent 35.0 Red Cell Distribution Width 19.7 H Platelet Count 81 L Mean Platelet Volume 9.6 Neutrophils % 80.6 H Lymphocytes % 7.1 L Monocytes % 9.1 Eosinophils % 0.7 Basophils % 0.4 Nucleated Red Blood Cells % 0.0 Neutrophils # 6.8 Lymphocytes # 0.6 L Monocytes # 0.8 Eosinophils # 0.1 Basophils # 0.0 Nucleated Red Blood Cells # 0.0 Sodium Level 136 Potassium Level 3.7 Chloride Level 107 Carbon Dioxide Level 23 Anion Gap 10 Blood Urea Nitrogen 43 H Creatinine 1.46 H Glucose Level 93 Calcium Level 7.3 L Phosphorus Level 4.8 Magnesium Level 2.1 Total Bilirubin 9.7 H Direct Bilirubin 8.30 H Indirect Bilirubin 1.4 H Aspartate Amino Transf (AST/SGOT) 126 H Alanine Aminotransferase (ALT/SGPT) 117 H Alkaline Phosphatase 416 H Total Protein 5.9 L Albumin 1.6 L Globulin 4.30 H Albumin/Globulin Ratio 0.37 Medications Medications Current Medications Ondansetron HCl (Zofran Inj) 4 mg Q6H PRN IV NAUSEA AND/OR VOMITING; Start at 07:30 Acetaminophen (Tylenol Tab) 650 mg Q6H PRN PO PAIN LEVEL 1-3 OR FEVER Last administered on 02/10/17 12:58; Admin Dose 650 MG; Start 02/10/17 at 07:30 Ibuprofen (Motrin) 200 mg Q6H PRN PO PAIN OR TEMP ABOVE 38C Last administered on 02/13/17 09:35; Admin Dose 200 MG; Start 02/10/17 at 15:30 Al Hydrox/Mg Hydrox/Simethicone (Mag-Al Plus) 30 ml Q6H PRN PO GASTROINTESTINAL UPSET Last administered on 02/11/17 00:58; Admin Dose 30 ML; Start 02/11/17 at 01:00 Trazodone HCl (Desyrel) 50 mg HS PO Last administered on 02/12/17 21:03; Admin Dose 50 MG; Start 02/11/17 at 21:00 Morphine Sulfate (morphine) 1 mg Q4H PRN IV pain; Start 02/11/17 at 19:30 Phytonadione (Vitamin K) 10 mg Q12 SC Last administered on 02/13/17 09:35; Admin Dose 10 MG; Start 02/12/17 at 09:30; Stop 02/14/17 at 00:00 LORE HOUSTON Feb 13, 2017 11:58
[2017-02-13 13:39] VITALS: BP 97/53; RESP 12
[2017-02-13] MEDS: LACTULOSE 30ML CUP PO SCH ×2 (13:43→21:20)
[2017-02-13 19:34] VITALS: BP 103/63; RESP 16
[2017-02-13] MEDS: traZODone 50 MG TAB PO SCH (21:20)
[2017-02-14 01:48] VITALS: BP 105/60; RESP 16
[2017-02-14] MEDS: LACTULOSE 30ML CUP PO SCH ×3 (05:47→22:58)
[2017-02-14 06:30] LABS: ABNORMAL IP MESSAGE 1; HEMATOCRIT 25.5 % (37.0-47.0); HEMOGLOBIN 8.9 g/dl (12.0-16.0); MEAN CORPUSCULAR HEMOGLOBIN 29.6 pg (29.0-33.0); MEAN CORPUSCULAR HGB CONC 34.9 g/dl (32.0-37.0); MEAN CORPUSCULAR VOLUME 84.7 fl (82.0-101.0); MEAN PLATELET VOLUME 9.9 fl (7.4-10.4); PLATELET COUNT 94 10^3/UL (140-415); RED BLOOD COUNT 3.01 10^6/ul (4.20-5.40); WHITE BLOOD COUNT 7.8 10^3/ul (4.8-10.8)
[2017-02-14 06:59] LABS: POSITIVE DIFF @See below
[2017-02-14 07:03] LABS: CALCIUM 7.5 mg/dl (8.4-10.2); CREATININE 1.17 mg/dl (0.44-1.00)
[2017-02-14 07:13] LABS: MAGNESIUM 1.9 mg/dl (1.7-2.5); PHOSPHORUS 4.5 mg/dl (2.5-4.9)
[2017-02-14 07:41] LABS: ALBUMIN 1.7 g/dl (3.3-4.9); BILIRUBIN,DIRECT 9.3 mg/dl (0.00-0.20); BILIRUBIN,INDIRECT 1.5 mg/dl (0-1.1); BILIRUBIN,TOTAL 10.8 mg/dl (0.2-1.3); TOTAL PROTEIN 6.1 g/dl (6.1-8.1)
[2017-02-14 07:57] VITALS: BP 95/53; RESP 12
[2017-02-14 09:43] LABS: ANISOCYTOSIS 2+ (0-0); BASOPHILS % (M) 1 % (0-2); HYPOCHROMASIA 1+ (0-0); MONOCYTES % (M) 3 % (0-11); PLATELET ESTIMATE DECREASED; POIKILOCYTOSIS 2+ (0-0); POLYCHROMASIA 3+ (0-0); PROMYELOCYTES % (M) 1 % (0-0); REACTIVE LYMPHOCYTES% (M) 2 % (0-0)
--- NOTE | 2017-02-14 11:43 | PN ---
Date/Time of Note Date/Time of Note DATE: 02/14/17 TIME: 11:41 Assessment/Plan VTE Prophylaxis VTE Prophylaxis Intervention: SCD's Lines/Catheters IV [facility] Type (from [facility]): Saline Lock Assessment/Plan Chief Complaint/Hosp Course Assessment/Plan: 47 yo F with pmhx HTN admitted for fatigue, chills, scleral icterus found to have evidence of hepatic dysfunction of unclear etiology ( hyperbilirubinemia, transaminitis, coagulopathy), apparently with recent mononucleosis infection as well. 1. weakness: Patient with hepatic dysfunction. Still with jaundice and elevated LFT's. Much appreciate GI/hepatology assistance. MRCP results noted below. Patient with positive IgG EBV titer, consistent with previous exposure and not acute infection. HIV neg; CMV serologies in process; SmAb neg. hep C VL in process, apap level negative, HSV IgMs. -Continue supportive care - trend LFTs -Follow-up GI recommendations -Consider PT eval 2. ESLD -patient again with elevated liver function tests, positive jaundice, also elevated ammonia levels, but awake and alert answering questions. -Trend ammonia levels, continue low-dose lactulose. 3. WILLIAM -slowly improving, still present. Will cont to monitor 4. Lower extremity pain and swelling: Unclear source, possibly secondary to patient's hepatic inflammation, also want to rule out DVT. Patient denies any history of any cardiac disease -Keep legs elevated, IV Lasix 20 mg 1, check lower extremity Doppler studies as well Problems: Subjective 24 Hr Interval Summary Free Text/Dictation Patient has some complaints of lower extremity pain and swelling. Exam/Review of Systems Vital Signs Vitals Vital Signs Date Time Temp Pulse Resp B/P Pulse Ox O2 Delivery O2 Flow Rate FiO2 02/14/17 07:57 98.8 85 12 95/53 100 02/13/17 02:00 Room Air Intake and Output 02/13/17 02/13/17 02/14/17 15:00 23:00 07:00 Intake Total 760 ml 600 ml Output Total 600 ml 1100 ml Balance 160 ml -500 ml Exam responds to questions appropriately-->no evidence of encephalopathy + jaundice Pupils equal round reactive to light, extra muscles intact Supple no mrg abd soft Trace pitting edema bilateral lower extremities to the mid calves Results Result Diagram: 02/14/17 0545 02/14/17 0545 Results 24 hrs Laboratory Tests Test 02/14/17 05:45 02/14/17 07:35 White Blood Count 7.8 Red Blood Count 3.01 L Hemoglobin 8.9 L Hematocrit 25.5 L Mean Corpuscular Volume 84.7 Mean Corpuscular Hemoglobin 29.6 Mean Corpuscular Hemoglobin Concent 34.9 Red Cell Distribution Width 20.0 H Platelet Count 94 L Mean Platelet Volume 9.9 Neutrophils % Segmented Neutrophils % (Manual) 76 Band Neutrophils % (Manual) 8 H Lymphocytes % Lymphocytes % (Manual) 9 L Reactive Lymphocytes % (Manual) 2 H Monocytes % Monocytes % (Manual) 3 Eosinophils % Basophils % Basophils % (Manual) 1 Promyelocytes % (Manual) 1 H Nucleated Red Blood Cells % 0.0 Neutrophils # Neutrophils # (Manual) 6.0 Band Neutrophils # 0.6 Absolute Lymphocytes (Manual) 0.7 L Lymphocytes # Reactive Lymphocytes # 0.1 H Monocytes # Absolute Monocytes (Manual) 0.2 L Eosinophils # Basophils # Basophils # (Manual) 0.0 Promyelocytes # 0.0 Nucleated Red Blood Cells # Platelet Estimate DECREASED Polychromasia 3+ Hypochromasia 1+ Poikilocytosis 2+ Anisocytosis 2+ Macrocytosis 2+ Sodium Level 138 Potassium Level 4.0 Chloride Level 108 Carbon Dioxide Level 24 Anion Gap 10 Blood Urea Nitrogen 33 H Creatinine 1.17 H Glucose Level 94 Calcium Level 7.5 L Phosphorus Level 4.5 Magnesium Level 1.9 Total Bilirubin 10.8 H Direct Bilirubin 9.30 H Indirect Bilirubin 1.5 H Aspartate Amino Transf (AST/SGOT) 125 H Alanine Aminotransferase (ALT/SGPT) 110 H Alkaline Phosphatase 406 H Ammonia 42 H Total Protein 6.1 Albumin 1.7 L Lab Scanned Report REFERENCE LAB Medications Medications Current Medications Ondansetron HCl (Zofran Inj) 4 mg Q6H PRN IV NAUSEA AND/OR VOMITING; Start at 07:30 Acetaminophen (Tylenol Tab) 650 mg Q6H PRN PO PAIN LEVEL 1-3 OR FEVER Last administered on 02/10/17 12:58; Admin Dose 650 MG; Start 02/10/17 at 07:30 Ibuprofen (Motrin) 200 mg Q6H PRN PO PAIN OR TEMP ABOVE 38C Last administered on 02/13/17 09:35; Admin Dose 200 MG; Start 02/10/17 at 15:30; Status Future Hold Al Hydrox/Mg Hydrox/Simethicone (Mag-Al Plus) 30 ml Q6H PRN PO GASTROINTESTINAL UPSET Last administered on 02/11/17 00:58; Admin Dose 30 ML; Start 02/11/17 at 01:00 Trazodone HCl (Desyrel) 50 mg HS PO Last administered on 02/13/17 21:20; Admin Dose 50 MG; Start 02/11/17 at 21:00 Morphine Sulfate (morphine) 1 mg Q4H PRN IV pain; Start 02/11/17 at 19:30 Lactulose (Enulose) 10 gm Q8 PO Last administered on 02/14/17 05:47; Admin Dose 10 GM; Start 02/13/17 at 14:00 Furosemide (Lasix) 20 mg ONCE ONCE IV ; Start 02/14/17 at 12:00; Stop at 12:01; Status LORE LEWIS Feb 14, 2017 11:43
[2017-02-14] MEDS ORDERED: FUROSEMIDE 20 MG INJ IV ONE (12:00)
[2017-02-14] MEDS: morphine 2 MG INJ IV PRN (12:15)
[2017-02-14 12:16] VITALS: BP 96/62; PULSE 90; RESP 16
[2017-02-14 13:17] LABS: CYTOMEGALOVIRUS ANTIBODY (IGG) >10.00 U/mL; CYTOMEGALOVIRUS ANTIBODY (IGM) <30.00 AU/mL
[2017-02-14 13:17] LABS: CYTOMEGALOVIRUS ANTIBODY (IGG) >10.00 U/mL; CYTOMEGALOVIRUS ANTIBODY (IGM) <30.00 AU/mL
[2017-02-14 14:13] VITALS: BP 104/58; RESP 16
--- NOTE | 2017-02-14 14:48 | PN ---
Date/Time of Note Date/Time of Note DATE: 02/14/17 TIME: 14:43 Assessment/Plan VTE Prophylaxis VTE Prophylaxis Intervention: SCD's Lines/Catheters IV Catheter Type (from [facility]): Saline Lock Assessment/Plan Chief Complaint/Hosp Course Assessment: Cholestatic jaundice Rule out CMV hepatitis Rule out biliary obstruction Doubt drug-induced Prolonged INR, concerning for significant liver dysfunction Postcholecystectomy 1996 High blood pressure Plan: Will check INR tomorrow morning CMV serologies IgM negative, IgG positive EBV IgM negative, IgG positive Plan for liver bx if INR appropriate Ammonia 42 MRCP- negative for CBD obstruction Monitor liver panel remain elevated with min change Pt seen in collaboration with Dr. Toledo Subjective: Course reviewed with nursing staff Patient interviewed and examined All labs, imaging and other results reviewed The patient resting in bed, no c/o abd pain, reviewed results of MRCP and lab work, HEP C AB reactive RNA not detected. Discussed possibility of Liver bx in near future. PHYSICAL EXAMINATION: GENERAL: Well developed, well nourished, alert & oriented x 3, in no acute distress SKIN: Jaundice. Otherwise no lesions, no stigmata chronic liver disease, no evidence of bleeding diathesis LYMPHATIC: No palpable lymphadenopathy. HEAD: Normocephalic, atraumatic, no tenderness. EYES: Pupils equal reactive to light and accommodation, full extraocular movements, sclera clear, non-icteric, no discharge. EARS/NOSE AND THROAT: Ears normal, nose normal, oropharynx normal, oral membranes well hydrated without lesions. NECK: Supple, no masses, thyroid normal, JVP within normal limits, carotids normal without bruits. CHEST: Inspection within normal limits. CARDIOVASCULAR: Heart: Regular rate and rhythm, no murmurs, gallops or rubs. Peripheral pulses present within normal limits, no cyanosis, clubbing or edemas. No pulsatile abdominal mass RESPIRATORY: Lungs clear to auscultation and percussion, no wheezing, no rubs GASTROINTESTINAL AND LIVER: Abdomen: Soft, mild tenderness in the epigastrium and right upper quadrant, non-distended, no hernias, no masses, no Taylor sign, no guarding, no rebound tenderness, normoactive bowel sounds. Rectal: Deferred. GENITOURINARY: Female genitalia within normal limits. EXTREMITIES: BLE edema. Problems: Exam/Review of Systems Vital Signs Vitals Vital Signs Date Time Temp Pulse Resp B/P Pulse Ox O2 Delivery O2 Flow Rate FiO2 02/14/17 14:13 97.6 87 16 104/58 99 02/14/17 12:16 Room Air Intake and Output 02/13/17 02/13/17 02/14/17 14:59 22:59 06:59 Intake Total 760 ml 600 ml Output Total 600 ml 1100 ml Balance 160 ml -500 ml Results Result Diagram: 02/14/17 0545 02/14/17 0545 Results 24 hrs Laboratory Tests Test 02/14/17 05:45 02/14/17 07:35 White Blood Count 7.8 Red Blood Count 3.01 L Hemoglobin 8.9 L Hematocrit 25.5 L Mean Corpuscular Volume 84.7 Mean Corpuscular Hemoglobin 29.6 Mean Corpuscular Hemoglobin Concent 34.9 Red Cell Distribution Width 20.0 H Platelet Count 94 L Mean Platelet Volume 9.9 Neutrophils % Segmented Neutrophils % (Manual) 76 Band Neutrophils % (Manual) 8 H Lymphocytes % Lymphocytes % (Manual) 9 L Reactive Lymphocytes % (Manual) 2 H Monocytes % Monocytes % (Manual) 3 Eosinophils % Basophils % Basophils % (Manual) 1 Promyelocytes % (Manual) 1 H Nucleated Red Blood Cells % 0.0 Neutrophils # Neutrophils # (Manual) 6.0 Band Neutrophils # 0.6 Absolute Lymphocytes (Manual) 0.7 L Lymphocytes # Reactive Lymphocytes # 0.1 H Monocytes # Absolute Monocytes (Manual) 0.2 L Eosinophils # Basophils # Basophils # (Manual) 0.0 Promyelocytes # 0.0 Nucleated Red Blood Cells # Platelet Estimate DECREASED Polychromasia 3+ Hypochromasia 1+ Poikilocytosis 2+ Anisocytosis 2+ Macrocytosis 2+ Sodium Level 138 Potassium Level 4.0 Chloride Level 108 Carbon Dioxide Level 24 Anion Gap 10 Blood Urea Nitrogen 33 H Creatinine 1.17 H Glucose Level 94 Calcium Level 7.5 L Phosphorus Level 4.5 Magnesium Level 1.9 Total Bilirubin 10.8 H Direct Bilirubin 9.30 H Indirect Bilirubin 1.5 H Aspartate Amino Transf (AST/SGOT) 125 H Alanine Aminotransferase (ALT/SGPT) 110 H Alkaline Phosphatase 406 H Ammonia 42 H Total Protein 6.1 Albumin 1.7 L Lab Scanned Report REFERENCE LAB Medications Medications Current Medications Ondansetron HCl (Zofran Inj) 4 mg Q6H PRN IV NAUSEA AND/OR VOMITING; Start at 07:30 Acetaminophen (Tylenol Tab) 650 mg Q6H PRN PO PAIN LEVEL 1-3 OR FEVER Last administered on 02/10/17 12:58; Admin Dose 650 MG; Start 02/10/17 at 07:30 Ibuprofen (Motrin) 200 mg Q6H PRN PO PAIN OR TEMP ABOVE 38C Last administered on 02/13/17 09:35; Admin Dose 200 MG; Start 02/10/17 at 15:30; Status Future Hold Al Hydrox/Mg Hydrox/Simethicone (Mag-Al Plus) 30 ml Q6H PRN PO GASTROINTESTINAL UPSET Last administered on 02/11/17 00:58; Admin Dose 30 ML; Start 02/11/17 at 01:00 Trazodone HCl (Desyrel) 50 mg HS PO Last administered on 02/13/17 21:20; Admin Dose 50 MG; Start 02/11/17 at 21:00 Morphine Sulfate (morphine) 1 mg Q4H PRN IV pain Last administered on 12:15; Admin Dose 1 MG; Start 02/11/17 at 19:30 Lactulose (Enulose) 10 gm Q8 PO Last administered on 02/14/17 05:47; Admin Dose 10 GM; Start 02/13/17 at 14:00 SHIREEN TREVIZO Feb 14, 2017 14:48
--- NOTE | 2017-02-14 15:49 | RADRPT ---
PROCEDURE: US bilateral lower extremity venous CLINICAL INDICATION: Bilateral lower extremity edema TECHNIQUE: Multiple longitudinal and transverse images of the bilateral lower extremity veins were obtained with foster scale and color Doppler imaging. 2D grayscale measurements with compression, col or Doppler flow, and augmentation was performed. The calf veins were interrogated as well. COMPARISON: None available FINDINGS: The bilateral common femoral, femoral, and popliteal veins are patent and without evidence of fillin g defects. All these veins have normal spectral wave forms, fill with color signal, are compressibl e, and have augmentation of blood flow with compression. The visualized upper calf veins (posterior tibial and peroneal) are patent and without evidence of f illing defects; these veins fill with color signal and are compressible. IMPRESSION: 1. No evidence of deep vein thrombosis involving either lower extremity RPTAT: TT Physician Nicole Date Time Electronically viewed and signed by Physician Nicole on 02/14/2017 15:49 PRISCILA/
[2017-02-14 19:34] VITALS: BP 109/61; RESP 16
[2017-02-14] MEDS: traZODone 50 MG TAB PO SCH (21:10)
[2017-02-15 01:57] VITALS: BP 102/59; RESP 16
[2017-02-15] MEDS: LACTULOSE 30ML CUP PO SCH (05:50)
[2017-02-15 06:18] LABS: ABNORMAL IP MESSAGE 1; HEMATOCRIT 24.7 % (37.0-47.0); HEMOGLOBIN 8.9 g/dl (12.0-16.0); MEAN CORPUSCULAR HEMOGLOBIN 29.9 pg (29.0-33.0); MEAN CORPUSCULAR VOLUME 82.9 fl (82.0-101.0); MEAN PLATELET VOLUME 10.3 fl (7.4-10.4); PLATELET COUNT 92 10^3/UL (140-415); RED BLOOD COUNT 2.98 10^6/ul (4.20-5.40); RED CELL DISTRIBUTION WIDTH 20.5 % (11.5-14.5); WHITE BLOOD COUNT 9.1 10^3/ul (4.8-10.8)
[2017-02-15 06:30] LABS: INR 1.95; PROTIME 22.4 Sec (12.2-14.2); PT RATIO 1.8
[2017-02-15 06:34] LABS: POSITIVE DIFF @See below
[2017-02-15 06:59] LABS: MAGNESIUM 1.6 mg/dl (1.7-2.5); PHOSPHORUS 4.5 mg/dl (2.5-4.9)
[2017-02-15 07:08] LABS: ALBUMIN 1.7 g/dl (3.3-4.9); BILIRUBIN,DIRECT 10.1 mg/dl (0.00-0.20); BILIRUBIN,INDIRECT 1.7 mg/dl (0-1.1); BILIRUBIN,TOTAL 11.8 mg/dl (0.2-1.3)
[2017-02-15 07:11] LABS: CALCIUM 7.3 mg/dl (8.4-10.2); CREATININE 1.13 mg/dl (0.44-1.00); POTASSIUM 3.6 mmol/L (3.5-5.1)
[2017-02-15 07:21] VITALS: BP 101/63; RESP 16
[2017-02-15] MEDS: morphine 2 MG INJ IV PRN (08:33)
[2017-02-15] MEDS ORDERED: SOD CHLORIDE 0.9% 250 ML IV* ONE (11:27)
[2017-02-15] MEDS ORDERED: LIDOCAINE 1% (MPF) 5 ML VIAL SC ONE (11:30)
--- NOTE | 2017-02-15 11:31 | PN ---
Date/Time of Note Date/Time of Note DATE: 02/15/17 TIME: 11:29 Assessment/Plan VTE Prophylaxis VTE Prophylaxis Intervention: SCD's Lines/Catheters [facility] Saline Lock Assessment/Plan Chief Complaint/Hosp Course Assessment/Plan: 47 yo F with pmhx HTN admitted for fatigue, chills, scleral icterus found to have evidence of hepatic dysfunction of unclear etiology ( hyperbilirubinemia, transaminitis, coagulopathy), apparently with recent mononucleosis infection as well. 1. weakness: Patient with hepatic dysfunction. Still with jaundice and elevated LFT's. Much appreciate GI/hepatology assistance. MRCP results noted below. Patient with positive IgG EBV titer, consistent with previous exposure and not acute infection. HIV neg; CMV serologies in process; SmAb neg. hep C VL in process, apap level negative, HSV IgMs. -Continue supportive care, awaiting liver biopsy. -Continue to trend LFTs -Follow-up GI recommendations 2. ESLD -patient again with elevated liver function tests, positive jaundice, also had elevated ammonia levels 3 days ago, trending down now, awake and alert answering questions. -Trend ammonia levels, continue low-dose lactulose. 3. WILLIAM -slowly improving, still present. Will cont to monitor 4. Lower extremity pain and swelling: Unclear source, possibly secondary to patient's hepatic inflammation. Patient denies any history of any cardiac disease -Keep legs elevated, monitor Problems: Subjective 24 Hr Interval Summary Free Text/Dictation Patient not able to get liver biopsy done today secondary to high INR. No acute events overnight. Seen by GI team yesterday. Exam/Review of Systems Vital Signs Vitals Vital Signs Date Time Temp Pulse Resp B/P Pulse Ox O2 Delivery O2 Flow Rate FiO2 02/15/17 07:21 98.5 85 16 101/63 95 02/14/17 12:16 Room Air Intake and Output 02/14/17 02/14/17 02/15/17 15:00 23:00 07:00 Intake Total 1060 ml 350 ml Output Total 1000 ml 400 ml Balance 60 ml -50 ml Exam responds to questions appropriately-->no evidence of encephalopathy + jaundice Pupils equal round reactive to light, extra muscles intact Supple no mrg abd soft Trace pitting edema bilateral lower extremities to the mid calves Results Result Diagram: 02/15/17 0536 02/15/17 0536 Results 24 hrs Laboratory Tests Test 02/14/17 14:17 02/15/17 05:36 02/15/17 09:15 Ethyl Alcohol Level < 10.0 White Blood Count 9.1 Red Blood Count 2.98 L Hemoglobin 8.9 L Hematocrit 24.7 L Mean Corpuscular Volume 82.9 Mean Corpuscular Hemoglobin 29.9 Mean Corpuscular Hemoglobin Concent 36.0 Red Cell Distribution Width 20.5 H Platelet Count 92 L Mean Platelet Volume 10.3 Neutrophils % Lymphocytes % Monocytes % Eosinophils % Basophils % Nucleated Red Blood Cells % 0.0 Neutrophils # Lymphocytes # Monocytes # Eosinophils # Basophils # Nucleated Red Blood Cells # Prothrombin Time 22.4 H Prothrombin Time Ratio 1.8 INR International Normalized Ratio 1.95 Sodium Level 135 Potassium Level 3.6 Chloride Level 104 Carbon Dioxide Level 24 Anion Gap 11 Blood Urea Nitrogen 25 H Creatinine 1.13 H Glucose Level 79 Calcium Level 7.3 L Phosphorus Level 4.5 Magnesium Level 1.6 L Total Bilirubin 11.8 H Direct Bilirubin 10.10 H Indirect Bilirubin 1.7 H Aspartate Amino Transf (AST/SGOT) 102 H Alanine Aminotransferase (ALT/SGPT) 100 H Alkaline Phosphatase 387 H Ammonia 27 Total Protein 6.0 L Albumin 1.7 L Lab Scanned Report REFERENCE LAB Medications Medications Current Medications Ondansetron HCl (Zofran Inj) 4 mg Q6H PRN IV NAUSEA AND/OR VOMITING; Start at 07:30 Acetaminophen (Tylenol Tab) 650 mg Q6H PRN PO PAIN LEVEL 1-3 OR FEVER Last administered on 02/10/17 12:58; Admin Dose 650 MG; Start 02/10/17 at 07:30 Ibuprofen (Motrin) 200 mg Q6H PRN PO PAIN OR TEMP ABOVE 38C Last administered on 02/13/17 09:35; Admin Dose 200 MG; Start 02/10/17 at 15:30; Status Future Hold Al Hydrox/Mg Hydrox/Simethicone (Mag-Al Plus) 30 ml Q6H PRN PO GASTROINTESTINAL UPSET Last administered on 02/11/17 00:58; Admin Dose 30 ML; Start 02/11/17 at 01:00 Trazodone HCl (Desyrel) 50 mg HS PO Last administered on 02/14/17 21:10; Admin Dose 50 MG; Start 02/11/17 at 21:00 Morphine Sulfate (morphine) 1 mg Q4H PRN IV pain Last administered on t 08:33; Admin Dose 1 MG; Start 02/11/17 at 19:30 Lidocaine 5 ml 5 ml ONCE ONCE SC ; Start 02/15/17 at 11:30; Stop 02/15/17 at 11:31 Magnesium Sulfate/ Dextrose (Magnesium Sulfate 1 Gm/D5W) 100 ml @ 100 mls/hr ONCE ONCE IVPB ; Start 02/15/17 at 12:30; Stop 02/15/17 at 13:29 Lactulose (Enulose) 10 gm DAILY PO ; Start 02/16/17 at 09:00 LORE HOUSTON Feb 15, 2017 11:31
[2017-02-15] MEDS ORDERED: MAGNESIUM SULFATE 1 GM/D5W 100 ML IVPB ONE (12:30)
--- NOTE | 2017-02-15 14:04 | PN ---
Date/Time of Note Date/Time of Note DATE: 02/15/17 TIME: 13:56 Assessment/Plan VTE Prophylaxis VTE Prophylaxis Intervention: SCD's Lines/Catheters IV [facility] Saline Lock Assessment/Plan Chief Complaint/Hosp Course Assessment: Cholestatic jaundice Rule out CMV hepatitis Rule out biliary obstruction Doubt drug-induced Prolonged INR, concerning for significant liver dysfunction Postcholecystectomy 1996 High blood pressure Plan: CMV serologies IgM negative, IgG positive EBV IgM negative, IgG positive Liver bx d/c'd due to elevated INR- Will give vitamin k bid today and tomorrow- with plan for liver bx if INR appropriate Monday Ammonia 42 MRCP- negative for CBD obstruction Monitor liver panel remain elevated with min change Pt seen in collaboration with Dr. Toledo Subjective: Course reviewed with nursing staff Patient interviewed and examined All labs, imaging and other results reviewed The patient resting in bed, no c/o abd pain, nausea or vomiting. Discussed with patient why liver bx was canceled Pt verbalized understanding, plan to given vitamin k 10 mg SQ x2 days, will check INR Monday morning appropriate we will move forward with liver biopsy. PHYSICAL EXAMINATION: GENERAL: Well developed, well nourished, alert & oriented x 3, in no acute distress SKIN: Jaundice. Otherwise no lesions, no stigmata chronic liver disease, no evidence of bleeding diathesis LYMPHATIC: No palpable lymphadenopathy. HEAD: Normocephalic, atraumatic, no tenderness. EYES: Pupils equal reactive to light and accommodation, full extraocular movements, sclera clear, non-icteric, no discharge. EARS/NOSE AND THROAT: Ears normal, nose normal, oropharynx normal, oral membranes well hydrated without lesions. NECK: Supple, no masses, thyroid normal, JVP within normal limits, carotids normal without bruits. CHEST: Inspection within normal limits. CARDIOVASCULAR: Heart: Regular rate and rhythm, no murmurs, gallops or rubs. Peripheral pulses present within normal limits, no cyanosis, clubbing or edemas. No pulsatile abdominal mass RESPIRATORY: Lungs clear to auscultation and percussion, no wheezing, no rubs GASTROINTESTINAL AND LIVER: Abdomen: Soft, mild tenderness in the epigastrium and right upper quadrant, non-distended, no hernias, no masses, no Taylor sign, no guarding, no rebound tenderness, normoactive bowel sounds. Rectal: Deferred. GENITOURINARY: Female genitalia within normal limits. EXTREMITIES: BLE edema. Problems: Exam/Review of Systems Vital Signs Vitals Vital Signs Date Time Temp Pulse Resp B/P Pulse Ox O2 Delivery O2 Flow Rate FiO2 02/15/17 07:21 98.5 85 16 101/63 95 02/14/17 12:16 Room Air Intake and Output 02/14/17 02/14/17 02/15/17 15:00 23:00 07:00 Intake Total 1060 ml 350 ml Output Total 1000 ml 400 ml Balance 60 ml -50 ml Results Result Diagram: 02/15/17 0536 02/15/17 0536 Results 24 hrs Laboratory Tests Test 02/14/17 14:17 02/15/17 05:36 02/15/17 09:15 Ethyl Alcohol Level < 10.0 White Blood Count 9.1 Red Blood Count 2.98 L Hemoglobin 8.9 L Hematocrit 24.7 L Mean Corpuscular Volume 82.9 Mean Corpuscular Hemoglobin 29.9 Mean Corpuscular Hemoglobin Concent 36.0 Red Cell Distribution Width 20.5 H Platelet Count 92 L Mean Platelet Volume 10.3 Neutrophils % Lymphocytes % Monocytes % Eosinophils % Basophils % Nucleated Red Blood Cells % 0.0 Neutrophils # Lymphocytes # Monocytes # Eosinophils # Basophils # Nucleated Red Blood Cells # Prothrombin Time 22.4 H Prothrombin Time Ratio 1.8 INR International Normalized Ratio 1.95 Sodium Level 135 Potassium Level 3.6 Chloride Level 104 Carbon Dioxide Level 24 Anion Gap 11 Blood Urea Nitrogen 25 H Creatinine 1.13 H Glucose Level 79 Calcium Level 7.3 L Phosphorus Level 4.5 Magnesium Level 1.6 L Total Bilirubin 11.8 H Direct Bilirubin 10.10 H Indirect Bilirubin 1.7 H Aspartate Amino Transf (AST/SGOT) 102 H Alanine Aminotransferase (ALT/SGPT) 100 H Alkaline Phosphatase 387 H Ammonia 27 Total Protein 6.0 L Albumin 1.7 L Lab Scanned Report REFERENCE LAB Medications Medications Current Medications Ondansetron HCl (Zofran Inj) 4 mg Q6H PRN IV NAUSEA AND/OR VOMITING; Start at 07:30 Acetaminophen (Tylenol Tab) 650 mg Q6H PRN PO PAIN LEVEL 1-3 OR FEVER Last administered on 02/10/17t 12:58; Admin Dose 650 MG; Start 02/10/17 at 07:30 Ibuprofen (Motrin) 200 mg Q6H PRN PO PAIN OR TEMP ABOVE 38C Last administered on 02/13/17 09:35; Admin Dose 200 MG; Start 02/10/17 at 15:30; Status Future Hold Al Hydrox/Mg Hydrox/Simethicone (Mag-Al Plus) 30 ml Q6H PRN PO GASTROINTESTINAL UPSET Last administered on 02/11/17 00:58; Admin Dose 30 ML; Start 02/11/17 at 01:00 Trazodone HCl (Desyrel) 50 mg HS PO Last administered on 02/14/17 21:10; Admin Dose 50 MG; Start 02/11/17 at 21:00 Morphine Sulfate (morphine) 1 mg Q4H PRN IV pain Last administered on 08:33; Admin Dose 1 MG; Start 02/11/17 at 19:30 Lactulose (Enulose) 10 gm DAILY PO ; Start 02/16/17 at 09:00 SHIREEN TREVIZO Feb 15, 2017 14:04
[2017-02-15 14:47] VITALS: BP 91/52; RESP 16
[2017-02-15 20:00] VITALS: BP 108/59; RESP 20
[2017-02-15] MEDS: ACETAMINOPHEN 325 MG TAB PO PRN (20:27)
[2017-02-15] MEDS: traZODone 50 MG TAB PO SCH (20:27)
[2017-02-15] MEDS: PHYTONADIONE 10 MG/ML INJ SC SCH (20:28)
[2017-02-16 02:12] VITALS: BP 103/60; RESP 20
[2017-02-16 06:13] LABS: ABNORMAL IP MESSAGE 1; BASOPHILS % 0.5 % (0.0-2.0); EOSINOPHILS # 0.1 10^3/ul (0.0-0.5); EOSINOPHILS % 0.7 % (0.0-7.0); HEMATOCRIT 22.5 % (37.0-47.0); LYMPHOCYTES # 0.7 10^3/ul (0.8-2.9); LYMPHOCYTES % 8.5 % (15.0-51.0); MEAN CORPUSCULAR HEMOGLOBIN 29.5 pg (29.0-33.0); MEAN CORPUSCULAR HGB CONC 35.6 g/dl (32.0-37.0); MEAN PLATELET VOLUME 9.5 fl (7.4-10.4); MONOCYTE # 0.6 10^3/ul (0.3-0.9); MONOCYTES % 7.5 % (0.0-11.0); NEUTROPHIL # 6.9 10^3/ul (1.6-7.5); NEUTROPHILS % 80.9 % (39.0-77.0); PLATELET COUNT 77 10^3/UL (140-415); RED BLOOD COUNT 2.71 10^6/ul (4.20-5.40); RED CELL DISTRIBUTION WIDTH 21.1 % (11.5-14.5); WHITE BLOOD COUNT 8.5 10^3/ul (4.8-10.8)
[2017-02-16 06:15] LABS: POSITIVE DIFF @See below
[2017-02-16 06:31] LABS: CALCIUM 7.3 mg/dl (8.4-10.2); CREATININE 1.03 mg/dl (0.44-1.00); POTASSIUM 3.5 mmol/L (3.5-5.1)
[2017-02-16 06:34] LABS: INR 2.08; PROTIME 23.6 Sec (12.2-14.2); PT RATIO 1.8
[2017-02-16 06:35] LABS: PARTIAL THROMBOPLASTIN TIME 45.6 Sec (25.0-35.0)
[2017-02-16 08:03] VITALS: BP 114/68; RESP 18
[2017-02-16] MEDS: morphine 2 MG INJ IV PRN ×2 (08:22→20:35)
[2017-02-16] MEDS: LACTULOSE 30ML CUP PO SCH (08:27)
[2017-02-16] MEDS: PHYTONADIONE 10 MG/ML INJ SC SCH ×2 (08:31→20:34)
--- NOTE | 2017-02-16 10:51 | PN ---
Date/Time of Note Date/Time of Note DATE: 02/16/17 TIME: 10:49 Assessment/Plan VTE Prophylaxis VTE Prophylaxis Intervention: SCD's Lines/Catheters IV Catheter Type (from [facility]): Saline Lock Assessment/Plan Chief Complaint/Hosp Course Assessment: Cholestatic jaundice Rule out CMV hepatitis Rule out biliary obstruction Doubt drug-induced Prolonged INR, concerning for significant liver dysfunction Postcholecystectomy 1996 High blood pressure Plan: CMV serologies IgM negative, IgG positive EBV IgM negative, IgG positive Liver bx d/c'd due to elevated INR- Continue vitamin k will continue to monitor INR Pt seen in collaboration with Dr. Toledo Subjective: Course reviewed with nursing staff Patient interviewed and examined All labs, imaging and other results reviewed The patient sitting up, no significant events over night, INR trending up will continue vitamin K in hopes it will INR enough for liver bx, however may need to mov froward with FFP if vitamin k not having enough of an effect on INR. PHYSICAL EXAMINATION: GENERAL: Well developed, well nourished, alert & oriented x 3, in no acute distress SKIN: Jaundice. Otherwise no lesions, no stigmata chronic liver disease, no evidence of bleeding diathesis LYMPHATIC: No palpable lymphadenopathy. HEAD: Normocephalic, atraumatic, no tenderness. EYES: Pupils equal reactive to light and accommodation, full extraocular movements, sclera clear, non-icteric, no discharge. EARS/NOSE AND THROAT: Ears normal, nose normal, oropharynx normal, oral membranes well hydrated without lesions. NECK: Supple, no masses, thyroid normal, JVP within normal limits, carotids normal without bruits. CHEST: Inspection within normal limits. CARDIOVASCULAR: Heart: Regular rate and rhythm, no murmurs, gallops or rubs. Peripheral pulses present within normal limits, no cyanosis, clubbing or edemas. No pulsatile abdominal mass RESPIRATORY: Lungs clear to auscultation and percussion, no wheezing, no rubs GASTROINTESTINAL AND LIVER: Abdomen: Soft, mild tenderness in the epigastrium and right upper quadrant, non-distended, no hernias, no masses, no Taylor sign, no guarding, no rebound tenderness, normoactive bowel sounds. Rectal: Deferred. GENITOURINARY: Female genitalia within normal limits. EXTREMITIES: BLE edema. Problems: Exam/Review of Systems Vital Signs Vitals Vital Signs Date Time Temp Pulse Resp B/P Pulse Ox O2 Delivery O2 Flow Rate FiO2 02/16/17 08:03 98.0 79 18 114/68 96 02/14/17 12:16 Room Air Intake and Output 02/15/17 02/15/17 02/16/17 14:59 22:59 06:59 Intake Total 700 ml 700 ml Output Total 700 ml Balance 0 ml 700 ml Results Result Diagram: 02/16/17 0526 02/16/17 05 Results 24 hrs Laboratory Tests Test 02/16/17 05:26 White Blood Count 8.5 Red Blood Count 2.71 L Hemoglobin 8.0 L Hematocrit 22.5 L Mean Corpuscular Volume 83.0 Mean Corpuscular Hemoglobin 29.5 Mean Corpuscular Hemoglobin Concent 35.6 Red Cell Distribution Width 21.1 H Platelet Count 77 L Mean Platelet Volume 9.5 Neutrophils % 80.9 H Lymphocytes % 8.5 L Monocytes % 7.5 Eosinophils % 0.7 Basophils % 0.5 Nucleated Red Blood Cells % 0.0 Neutrophils # 6.9 Lymphocytes # 0.7 L Monocytes # 0.6 Eosinophils # 0.1 Basophils # 0.0 Nucleated Red Blood Cells # 0.0 Prothrombin Time 23.6 H Prothrombin Time Ratio 1.8 INR International Normalized Ratio 2.08 Activated Partial Thromboplast Time 45.6 H Sodium Level 134 L Potassium Level 3.5 Chloride Level 103 Carbon Dioxide Level 26 Anion Gap 9 Blood Urea Nitrogen 23 H Creatinine 1.03 H Glucose Level 106 Calcium Level 7.3 L Medications Medications Current Medications Ondansetron HCl (Zofran Inj) 4 mg Q6H PRN IV NAUSEA AND/OR VOMITING; Start at 07:30 Acetaminophen (Tylenol Tab) 650 mg Q6H PRN PO PAIN LEVEL 1-3 OR FEVER Last administered on 02/15/17 20:27; Admin Dose 650 MG; Start 02/10/17 at 07:30 Ibuprofen (Motrin) 200 mg Q6H PRN PO PAIN OR TEMP ABOVE 38C Last administered on 02/13/17 09:35; Admin Dose 200 MG; Start 02/10/17 at 15:30; Status Future Hold Al Hydrox/Mg Hydrox/Simethicone (Mag-Al Plus) 30 ml Q6H PRN PO GASTROINTESTINAL UPSET Last administered on 11/18/17at 00:58; Admin Dose 30 ML; Start 02/11/17 at 01:00 Trazodone HCl (Desyrel) 50 mg HS PO Last administered on 02/15/17 20:27; Admin Dose 50 MG; Start 02/11/17 at 21:00 Morphine Sulfate (morphine) 1 mg Q4H PRN IV pain Last administered on 08:22; Admin Dose 1 MG; Start 02/11/17 at 19:30 Lactulose (Enulose) 10 gm DAILY PO Last administered on 02/16/17 08:27; Admin Dose 10 GM; Start 02/16/17 at 09:00 Phytonadione (Vitamin K) 10 mg BID SC Last administered on 02/16/17 08:31; Admin Dose 10 MG; Start 02/15/17 at 21:00; Stop 02/17/17 at 09:00 SHIREEN TREVIZO Feb 16, 2017 10:51
--- NOTE | 2017-02-16 12:09 | PN ---
Date/Time of Note Date/Time of Note DATE: 02/16/17 TIME: 12:08 Assessment/Plan VTE Prophylaxis VTE Prophylaxis Intervention: SCD's Lines/Catheters IV Catheter Type (from [facility]): Saline Lock Assessment/Plan Chief Complaint/Hosp Course Assessment/Plan: 47 yo F with pmhx HTN admitted for fatigue, chills, scleral icterus found to have evidence of hepatic dysfunction of unclear etiology ( hyperbilirubinemia, transaminitis, coagulopathy), apparently with recent mononucleosis infection as well. 1. weakness: Patient with hepatic dysfunction. Still with jaundice and elevated LFT's. Much appreciate GI/hepatology assistance. MRCP results noted below. Patient with positive IgG EBV titer, consistent with previous exposure and not acute infection. HIV neg; CMV serologies in process; SmAb neg. hep C VL in process, apap level negative, HSV IgMs. -Continue supportive care, awaiting liver biopsy -plan for tomorrow morning. Patient on vitamin K and will get FFP tonight as well secondary to elevated INR, check levels in the morning. -Continue to trend LFTs -Follow-up GI recommendations 2. ESLD -patient again with elevated liver function tests, positive jaundice, also had elevated ammonia levels 4 days ago, trending down now, awake and alert answering questions. -Trend ammonia levels, continue low-dose lactulose. 3. WILLIAM -slowly improving, still present. Will cont to monitor 4. Lower extremity pain and swelling: Unclear source, possibly secondary to patient's hepatic inflammation. Patient denies any history of any cardiac disease -Keep legs elevated, monitor Problems: Subjective 24 Hr Interval Summary Free Text/Dictation No acute events overnight, seen by GI team. Exam/Review of Systems Vital Signs Vitals Vital Signs Date Time Temp Pulse Resp B/P Pulse Ox O2 Delivery O2 Flow Rate FiO2 02/16/17 08:03 98.0 79 18 114/68 96 02/14/17 12:16 Room Air Intake and Output 02/15/17 02/15/17 02/16/17 15:00 23:00 07:00 Intake Total 700 ml 700 ml Output Total 700 ml Balance 0 ml 700 ml Exam responds to questions appropriately-->no evidence of encephalopathy + jaundice Pupils equal round reactive to light, extra muscles intact Supple no mrg abd soft Trace pitting edema bilateral lower extremities to the mid calves Results Result Diagram: 02/16/1726 02/16/17 05 Results 24 hrs Laboratory Tests Test 02/16/17 05:26 White Blood Count 8.5 Red Blood Count 2.71 L Hemoglobin 8.0 L Hematocrit 22.5 L Mean Corpuscular Volume 83.0 Mean Corpuscular Hemoglobin 29.5 Mean Corpuscular Hemoglobin Concent 35.6 Red Cell Distribution Width 21.1 H Platelet Count 77 L Mean Platelet Volume 9.5 Neutrophils % 80.9 H Lymphocytes % 8.5 L Monocytes % 7.5 Eosinophils % 0.7 Basophils % 0.5 Nucleated Red Blood Cells % 0.0 Neutrophils # 6.9 Lymphocytes # 0.7 L Monocytes # 0.6 Eosinophils # 0.1 Basophils # 0.0 Nucleated Red Blood Cells # 0.0 Prothrombin Time 23.6 H Prothrombin Time Ratio 1.8 INR International Normalized Ratio 2.08 Activated Partial Thromboplast Time 45.6 H Sodium Level 134 L Potassium Level 3.5 Chloride Level 103 Carbon Dioxide Level 26 Anion Gap 9 Blood Urea Nitrogen 23 H Creatinine 1.03 H Glucose Level 106 Calcium Level 7.3 L Medications Medications Current Medications Ondansetron HCl (Zofran Inj) 4 mg Q6H PRN IV NAUSEA AND/OR VOMITING; Start at 07:30 Acetaminophen (Tylenol Tab) 650 mg Q6H PRN PO PAIN LEVEL 1-3 OR FEVER Last administered on 02/15/17 20:27; Admin Dose 650 MG; Start 02/10/17 at 07:30 Ibuprofen (Motrin) 200 mg Q6H PRN PO PAIN OR TEMP ABOVE 38C Last administered on 02/13/17 09:35; Admin Dose 200 MG; Start 02/10/17 at 15:30; Status Future Hold Al Hydrox/Mg Hydrox/Simethicone (Mag-Al Plus) 30 ml Q6H PRN PO GASTROINTESTINAL UPSET Last administered on 02/11/17 00:58; Admin Dose 30 ML; Start 02/11/17 at 01:00 Trazodone HCl (Desyrel) 50 mg HS PO Last administered on 02/15/17 20:27; Admin Dose 50 MG; Start 02/11/17 at 21:00 Morphine Sulfate (morphine) 1 mg Q4H PRN IV pain Last administered on 08:22; Admin Dose 1 MG; Start 02/11/17 at 19:30 Lactulose (Enulose) 10 gm DAILY PO Last administered on 02/16/17 08:27; Admin Dose 10 GM; Start 02/16/17 at 09:00 Phytonadione (Vitamin K) 10 mg BID SC Last administered on 02/16/17 08:31; Admin Dose 10 MG; Start 02/15/17 at 21:00; Stop 02/17/17 at 21:00 LORE HOUSTON 23, 2017 12:09
[2017-02-16 12:21] LABS: ALBUMIN 1.6 g/dl (3.3-4.9); BILIRUBIN,DIRECT 9.8 mg/dl (0.00-0.20); BILIRUBIN,INDIRECT 1.9 mg/dl (0-1.1); BILIRUBIN,TOTAL 11.7 mg/dl (0.2-1.3); TOTAL PROTEIN 5.9 g/dl (6.1-8.1)
[2017-02-16 13:55] VITALS: BP 95/58; RESP 20
[2017-02-16 20:00] VITALS: BP 100/62; RESP 20
[2017-02-16] MEDS: traZODone 50 MG TAB PO SCH (20:34)
[2017-02-16] MEDS: AL HYDROX/MG HYDROX/SIMETH 30 ML CUP PO PRN (23:46)
[2017-02-16] MEDS: ACETAMINOPHEN 325 MG TAB PO PRN (23:46)
[2017-02-17 01:31] VITALS: BP 105/57; PULSE 87; RESP 18
[2017-02-17 06:28] LABS: ABNORMAL IP MESSAGE 1; BASOPHILS % 0.3 % (0.0-2.0); EOSINOPHILS % 0.6 % (0.0-7.0); HEMATOCRIT 21.3 % (37.0-47.0); HEMOGLOBIN 7.5 g/dl (12.0-16.0); LYMPHOCYTES # 0.6 10^3/ul (0.8-2.9); MEAN CORPUSCULAR HEMOGLOBIN 29.8 pg (29.0-33.0); MEAN CORPUSCULAR HGB CONC 35.2 g/dl (32.0-37.0); MEAN CORPUSCULAR VOLUME 84.5 fl (82.0-101.0); MEAN PLATELET VOLUME 9.1 fl (7.4-10.4); MONOCYTE # 0.5 10^3/ul (0.3-0.9); MONOCYTES % 7.6 % (0.0-11.0); RED BLOOD COUNT 2.52 10^6/ul (4.20-5.40); WHITE BLOOD COUNT 6.2 10^3/ul (4.8-10.8)
[2017-02-17 06:51] LABS: ALBUMIN 1.8 g/dl (3.3-4.9); BILIRUBIN,DIRECT 10.6 mg/dl (0.00-0.20); BILIRUBIN,INDIRECT 1.9 mg/dl (0-1.1); BILIRUBIN,TOTAL 12.5 mg/dl (0.2-1.3); TOTAL PROTEIN 6.3 g/dl (6.1-8.1)
[2017-02-17 06:53] LABS: PLATELET COUNT 72 10^3/UL (140-415); POSITIVE DIFF @See below
[2017-02-17 06:57] LABS: CALCIUM 7.6 mg/dl (8.4-10.2); CREATININE 0.95 mg/dl (0.44-1.00); POTASSIUM 3.1 mmol/L (3.5-5.1)
[2017-02-17 07:27] LABS: INR 1.69; PT RATIO 1.6
[2017-02-17 07:28] LABS: PARTIAL THROMBOPLASTIN TIME 43.4 Sec (25.0-35.0)
[2017-02-17 08:15] VITALS: BP 101/62; RESP 18
[2017-02-17] MEDS: LACTULOSE 30ML CUP PO SCH ×3 (09:00→21:06)
[2017-02-17] MEDS: PHYTONADIONE 10 MG/ML INJ SC SCH ×2 (09:16→21:07)
[2017-02-17] MEDS ORDERED: SOD CHLORIDE 0.9% 250 ML IV* ONE ×2 (09:28→15:39)
[2017-02-17] MEDS ORDERED: POTASSIUM CHLORIDE (SR) 20 MEQ TAB PO STA (10:51)
--- NOTE | 2017-02-17 11:00 | PN ---
Date/Time of Note Date/Time of Note DATE: 02/17/17 TIME: 10:53 Assessment/Plan VTE Prophylaxis VTE Prophylaxis Intervention: SCD's Lines/Catheters IV C[facility]ter Type (from [facility]): Saline Lock Assessment/Plan Chief Complaint/Hosp Course Assessment/Plan: 47 yo F with pmhx HTN admitted for fatigue, chills, scleral icterus found to have evidence of hepatic dysfunction of unclear etiology ( hyperbilirubinemia, transaminitis, coagulopathy), apparently with recent mononucleosis infection as well. 1. weakness: Patient with hepatic dysfunction. Still with jaundice and elevated LFT's. Much appreciate GI/hepatology assistance. MRCP results noted below. Patient with positive IgG EBV titer, consistent with previous exposure and not acute infection. HIV neg; CMV serologies in process; SmAb neg. hep C VL in process, apap level negative, HSV IgMs. -Continue supportive care, awaiting liver biopsy -INR was 1.68 this morning so not able to be done, will continue vitamin K and will get 2 more FFP's tonight now secondary to elevated INR, recheck levels around 1 PM, if INR levels satisfactory for radiology, will perform procedure later today. -Continue to trend LFTs (still elevated) -Follow-up GI recommendations 2. ESLD -patient again with elevated liver function tests, positive jaundice, ammonia was trending down, now slightly more elevated today, patient is abdomen -Trend ammonia levels, will increase frequency of lactulose today 3. WILLIAM -slowly improving, still present. Will cont to monitor 4. Lower extremity pain and swelling: Unclear source, possibly secondary to patient's hepatic inflammation. Patient denies any history of any cardiac disease -Keep legs elevated, monitor -Low-dose p.o. Lasix Problems: Subjective 24 Hr Interval Summary Free Text/Dictation Patient received FFP last night, however INR still elevated and not able to get liver biopsy performed this morning. Exam/Review of Systems Vital Signs Vitals Vital Signs Date Time Temp Pulse Resp B/P Pulse Ox O2 Delivery O2 Flow Rate FiO2 02/17/17 08:15 99.0 79 18 101/62 98 02/17/17 01:31 Room Air Intake and Output 02/16/17 02/16/17 02/17/17 15:00 23:00 07:00 Intake Total 960 ml 800 ml Output Total 1450 ml Balance 960 ml -650 ml Exam responds to questions appropriately-->no evidence of encephalopathy + jaundice Pupils equal round reactive to light, extra muscles intact Supple no mrg abd soft Trace pitting edema bilateral lower extremities to the mid calves Results Result Diagram: 02/17/17 0550 02/17/17 0550 Results 24 hrs Laboratory Tests Test 02/16/17 12:40 02/17/17 05:50 Ammonia 68 #H White Blood Count 6.2 # Red Blood Count 2.52 L Hemoglobin 7.5 L Hematocrit 21.3 L Mean Corpuscular Volume 84.5 Mean Corpuscular Hemoglobin 29.8 Mean Corpuscular Hemoglobin Concent 35.2 Red Cell Distribution Width 21.0 H Platelet Count 72 L Mean Platelet Volume 9.1 Neutrophils % 80.0 H Lymphocytes % 10.0 L Monocytes % 7.6 Eosinophils % 0.6 Basophils % 0.3 Nucleated Red Blood Cells % 0.0 Neutrophils # 5.0 Lymphocytes # 0.6 L Monocytes # 0.5 Eosinophils # 0.0 Basophils # 0.0 Nucleated Red Blood Cells # 0.0 Prothrombin Time 20.0 H Prothrombin Time Ratio 1.6 INR International Normalized Ratio 1.69 Activated Partial Thromboplast Time 43.4 H Sodium Level 136 Potassium Level 3.1 L Chloride Level 102 Carbon Dioxide Level 27 Anion Gap 10 Blood Urea Nitrogen 18 Creatinine 0.95 Glucose Level 101 Calcium Level 7.6 L Total Bilirubin 12.5 H Direct Bilirubin 10.60 H Indirect Bilirubin 1.9 H Aspartate Amino Transf (AST/SGOT) 53 H Alanine Aminotransferase (ALT/SGPT) 69 Alkaline Phosphatase 272 H Total Protein 6.3 Albumin 1.8 L Medications Medications Current Medications Ondansetron HCl (Zofran Inj) 4 mg Q6H PRN IV NAUSEA AND/OR VOMITING; Start at 07:30 Acetaminophen (Tylenol Tab) 650 mg Q6H PRN PO PAIN LEVEL 1-3 OR FEVER Last administered on 02/16/17 23:46; Admin Dose 650 MG; Start 02/10/17 at 07:30 Ibuprofen (Motrin) 200 mg Q6H PRN PO PAIN OR TEMP ABOVE 38C Last administered on 02/13/17 09:35; Admin Dose 200 MG; Start 02/10/17 at 15:30; Status Future Hold Al Hydrox/Mg Hydrox/Simethicone (Mag-Al Plus) 30 ml Q6H PRN PO GASTROINTESTINAL UPSET Last administered on 02/16/17 23:46; Admin Dose 30 ML; Start 02/11/17 at 01:00 Trazodone HCl (Desyrel) 50 mg HS PO Last administered on 02/16/17 20:34; Admin Dose 50 MG; Start 02/11/17 at 21:00 Morphine Sulfate (morphine) 1 mg Q4H PRN IV pain Last administered on 20:35; Admin Dose 1 MG; Start 02/11/17 at 19:30 Lactulose (Enulose) 10 gm DAILY PO Last administered on 02/16/17 08:27; Admin Dose 10 GM; Start 02/16/17 at 09:00 Phytonadione (Vitamin K) 10 mg BID SC Last administered on 02/17/17 09:16; Admin Dose 10 MG; Start 02/15/17 at 21:00; Stop 02/17/17 at 21:00 LORE HOUSTON 24, 2017 11:00
--- NOTE | 2017-02-17 11:26 | PN ---
Date/Time of Note Date/Time of Note DATE: 02/17/17 TIME: Assessment/Plan VTE Prophylaxis VTE Prophylaxis Intervention: SCD's Lines/Catheters IV C[facility]ter Type (from [facility]): Saline Lock Assessment/Plan Chief Complaint/Hosp Course Assessment: Cholestatic jaundice Rule out CMV hepatitis Rule out biliary obstruction Doubt drug-induced Prolonged INR, concerning for significant liver dysfunction Postcholecystectomy 1996 High blood pressure Plan: CMV serologies IgM negative, IgG positive EBV IgM negative, IgG positive Continue vitamin k will continue to monitor INR Monitor H/H slight drop this am, will recheck if hgb 7.5 or less will transfuse Pt seen in collaboration with Dr. Toledo Subjective: Course reviewed with nursing staff Patient interviewed and examined All labs, imaging and other results reviewed The patient received 2 units FFP, with min change in INR still too high for liver bx, 2 more units ordered and have started, Will recheck INR after 2nd unit of FFP will also check H/H at that time. If Hgb equal to or less than 7.5 will transfuse 1 unit PRBC's. If INR appropriate will move forward with liver biopsy today. PHYSICAL EXAMINATION: GENERAL: Well developed, well nourished, alert & oriented x 3, in no acute distress SKIN: Jaundice. Otherwise no lesions, no stigmata chronic liver disease, no evidence of bleeding diathesis LYMPHATIC: No palpable lymphadenopathy. HEAD: Normocephalic, atraumatic, no tenderness. EYES: Pupils equal reactive to light and accommodation, full extraocular movements, sclera clear, non-icteric, no discharge. EARS/NOSE AND THROAT: Ears normal, nose normal, oropharynx normal, oral membranes well hydrated without lesions. NECK: Supple, no masses, thyroid normal, JVP within normal limits, carotids normal without bruits. CHEST: Inspection within normal limits. CARDIOVASCULAR: Heart: Regular rate and rhythm, no murmurs, gallops or rubs. Peripheral pulses present within normal limits, no cyanosis, clubbing or edemas. No pulsatile abdominal mass RESPIRATORY: Lungs clear to auscultation and percussion, no wheezing, no rubs GASTROINTESTINAL AND LIVER: Abdomen: Soft, mild tenderness in the epigastrium and right upper quadrant, non-distended, no hernias, no masses, no Taylor sign, no guarding, no rebound tenderness, normoactive bowel sounds. Rectal: Deferred. GENITOURINARY: Female genitalia within normal limits. EXTREMITIES: BLE edema. Problems: Exam/Review of Systems Vital Signs Vitals Vital Signs Date Time Temp Pulse Resp B/P Pulse Ox O2 Delivery O2 Flow Rate FiO2 02/17/17 08:15 99.0 79 18 101/62 98 02/17/17 01:31 Room Air Intake and Output 02/16/17 02/16/17 02/17/17 14:59 22:59 06:59 Intake Total 960 ml 800 ml Output Total 1450 ml Balance 960 ml -650 ml Results Result Diagram: 02/17/17 0550 02/17/17 0550 Results 24 hrs Laboratory Tests Test 02/16/17 12:40 02/17/17 05:50 Ammonia 68 #H White Blood Count 6.2 # Red Blood Count 2.52 L Hemoglobin 7.5 L Hematocrit 21.3 L Mean Corpuscular Volume 84.5 Mean Corpuscular Hemoglobin 29.8 Mean Corpuscular Hemoglobin Concent 35.2 Red Cell Distribution Width 21.0 H Platelet Count 72 L Mean Platelet Volume 9.1 Neutrophils % 80.0 H Lymphocytes % 10.0 L Monocytes % 7.6 Eosinophils % 0.6 Basophils % 0.3 Nucleated Red Blood Cells % 0.0 Neutrophils # 5.0 Lymphocytes # 0.6 L Monocytes # 0.5 Eosinophils # 0.0 Basophils # 0.0 Nucleated Red Blood Cells # 0.0 Prothrombin Time 20.0 H Prothrombin Time Ratio 1.6 INR International Normalized Ratio 1.69 Activated Partial Thromboplast Time 43.4 H Sodium Level 136 Potassium Level 3.1 L Chloride Level 102 Carbon Dioxide Level 27 Anion Gap 10 Blood Urea Nitrogen 18 Creatinine 0.95 Glucose Level 101 Calcium Level 7.6 L Total Bilirubin 12.5 H Direct Bilirubin 10.60 H Indirect Bilirubin 1.9 H Aspartate Amino Transf (AST/SGOT) 53 H Alanine Aminotransferase (ALT/SGPT) 69 Alkaline Phosphatase 272 H Total Protein 6.3 Albumin 1.8 L Medications Medications Current Medications Ondansetron HCl (Zofran Inj) 4 mg Q6H PRN IV NAUSEA AND/OR VOMITING; Start at 07:30 Acetaminophen (Tylenol Tab) 650 mg Q6H PRN PO PAIN LEVEL 1-3 OR FEVER Last administered on 02/16/17t 23:46; Admin Dose 650 MG; Start 02/10/17 at 07:30 Ibuprofen (Motrin) 200 mg Q6H PRN PO PAIN OR TEMP ABOVE 38C Last administered on 02/13/17 09:35; Admin Dose 200 MG; Start 02/10/17 at 15:30; Status Future Hold Al Hydrox/Mg Hydrox/Simethicone (Mag-Al Plus) 30 ml Q6H PRN PO GASTROINTESTINAL UPSET Last administered on 02/16/17 23:46; Admin Dose 30 ML; Start 02/11/17 at 01:00 Trazodone HCl (Desyrel) 50 mg HS PO Last administered on 02/16/17 20:34; Admin Dose 50 MG; Start 02/11/17 at 21:00 Morphine Sulfate (morphine) 1 mg Q4H PRN IV pain Last administered on 20:35; Admin Dose 1 MG; Start 02/11/17 at 19:30 Phytonadione (Vitamin K) 10 mg BID SC Last administered on 02/17/17 09:16; Admin Dose 10 MG; Start 02/15/17 at 21:00; Stop 02/17/17 at 21:00 Lactulose 10 gm 10 gm TID PO ; Start 02/17/17 at 13:00 Potassium Chloride (KCl 40 MEQ/250 ML NS) 250 ml @ 62.5 mls/hr ONCE ONCE IVPB ; Start 02/17/17 at 11:30; Stop 02/17/17 at 15:29 Furosemide (Lasix) 20 mg DAILY PO ; Start 02/17/17 at 11:00 SHIREEN TREVIZO Feb 17, 2017 11:26
[2017-02-17] MEDS ORDERED: POTASSIUM CHLORIDE 250 ML IVPB ONE (11:30)
[2017-02-17 11:51] LABS: MITOCHONDRIAL TB NEGATIVE (NEGATIVE)
[2017-02-17 14:27] VITALS: BP 96/61; RESP 18
[2017-02-17 15:14] LABS: HEMATOCRIT 22.8 % (37.0-47.0); HEMOGLOBIN 8.1 g/dl (12.0-16.0)
[2017-02-17 15:35] LABS: INR 1.55; PROTIME 18.7 Sec (12.2-14.2); PT RATIO 1.5
[2017-02-17] MEDS: FUROSEMIDE 20 MG TAB PO SCH (15:57)
[2017-02-17 20:04] VITALS: BP 106/60; RESP 20
[2017-02-17] MEDS: traZODone 50 MG TAB PO SCH (21:06)
[2017-02-18] VITALS (7 sets, daily range): BP systolic 90–115; BP diastolic 53–76; PULSE 74–78; RESP 16–20
[2017-02-18 06:36] LABS: ABNORMAL IP MESSAGE 1; BASOPHILS % 0.3 % (0.0-2.0); EOSINOPHILS % 0.5 % (0.0-7.0); HEMATOCRIT 21.1 % (37.0-47.0); HEMOGLOBIN 7.4 g/dl (12.0-16.0); LYMPHOCYTES # 0.7 10^3/ul (0.8-2.9); LYMPHOCYTES % 10.7 % (15.0-51.0); MEAN CORPUSCULAR HEMOGLOBIN 29.5 pg (29.0-33.0); MEAN CORPUSCULAR HGB CONC 35.1 g/dl (32.0-37.0); MEAN CORPUSCULAR VOLUME 84.1 fl (82.0-101.0); MEAN PLATELET VOLUME 10.3 fl (7.4-10.4); MONOCYTE # 0.5 10^3/ul (0.3-0.9); MONOCYTES % 7.4 % (0.0-11.0); NEUTROPHIL # 5.3 10^3/ul (1.6-7.5); PLATELET COUNT 82 10^3/UL (140-415); RED BLOOD COUNT 2.51 10^6/ul (4.20-5.40); RED CELL DISTRIBUTION WIDTH 22.3 % (11.5-14.5); WHITE BLOOD COUNT 6.6 10^3/ul (4.8-10.8)
[2017-02-18 06:44] LABS: POSITIVE DIFF @See below
[2017-02-18 07:13] LABS: CALCIUM 7.5 mg/dl (8.4-10.2); CREATININE 0.86 mg/dl (0.44-1.00); POTASSIUM 3.9 mmol/L (3.5-5.1)
[2017-02-18 08:05] LABS: ALBUMIN 2.1 g/dl (3.3-4.9); BILIRUBIN,DIRECT 9.5 mg/dl (0.00-0.20); BILIRUBIN,INDIRECT 2.3 mg/dl (0-1.1); BILIRUBIN,TOTAL 11.8 mg/dl (0.2-1.3); TOTAL PROTEIN 6.4 g/dl (6.1-8.1)
[2017-02-18] MEDS: FUROSEMIDE 20 MG TAB PO SCH (08:46)
[2017-02-18] MEDS: LACTULOSE 30ML CUP PO SCH ×2 (08:46→20:55)
[2017-02-18] MEDS: PHYTONADIONE 10 MG/ML INJ SC SCH (09:12)
--- NOTE | 2017-02-18 10:21 | PN ---
Date/Time of Note Date/Time of Note DATE: 02/18/17 TIME: 10:16 Assessment/Plan VTE Prophylaxis VTE Prophylaxis Intervention: SCD's Lines/Catheters IV Catheter Type (from Nrs): Saline Lock Assessment/Plan Chief Complaint/Hosp Course S: FFP still running presently, still waiting again for liver biopsy to be possibly performed later today after FFP completely given. No acute events overnight otherwise. O: VS (see below) PE: responds to questions appropriately-->no evidence of encephalopathy + jaundice Pupils equal round reactive to light, extra muscles intact Supple no mrg abd soft Trace pitting edema bilateral lower extremities to the mid calves Assessment/Plan: 47 yo F with pmhx HTN admitted for fatigue, chills, scleral icterus found to have evidence of hepatic dysfunction of unclear etiology ( hyperbilirubinemia, transaminitis, coagulopathy), apparently with recent mononucleosis infection as well. 1. weakness: Patient with hepatic dysfunction. Still with jaundice and elevated LFT's. Much appreciate GI/hepatology assistance. MRCP results noted below. Patient with positive IgG EBV titer, consistent with previous exposure and not acute infection. HIV neg; CMV serologies in process; SmAb neg. hep C VL in process, apap level negative, HSV IgMs. -Continue supportive care, again still awaiting liver biopsy - continue vitamin K and FFP's, if INR levels satisfactory for radiology, will perform procedure later today. -Continue to trend LFTs (still elevated) -Follow-up GI recommendations 2. ESLD -patient again with elevated liver function tests, positive jaundice, ammonia level stable presently -Trend ammonia levels, continue lactulose 3. WILLIAM -resolved now Will cont to monitor 4. Lower extremity pain and swelling: Improving now. Lower extremity ultrasound negative for DVT bilaterally a few days ago. -Keep legs elevated, monitor -Low-dose p.o. Lasix Problems: Exam/Review of Systems Vital Signs Vitals Vital Signs Date Time Temp Pulse Resp B/P Pulse Ox O2 Delivery O2 Flow Rate FiO2 02/18/17 07:39 98.8 80 16 90/53 96 02/17/17 01:31 Room Air Intake and Output 02/17/17 02/17/17 02/18/17 15:00 23:00 07:00 Intake Total 20 ml 1710 ml Output Total 1300 ml 100 ml Balance 20 ml 410 ml -100 ml Results Result Diagram: 02/18/1715 02/18/1715 Results 24 hrs Laboratory Tests Test 02/17/17 10:35 02/17/17 14:45 02/17/17 14:57 02/18/17 05:15 Ammonia 27 # 24 Hemoglobin 8.1 L 7.4 L Hematocrit 22.8 L 21.1 L Prothrombin Time 18.7 H Prothrombin Time Ratio 1.5 INR International Normalized Ratio 1.55 White Blood Count 6.6 Red Blood Count 2.51 L Mean Corpuscular Volume 84.1 Mean Corpuscular Hemoglobin 29.5 Mean Corpuscular Hemoglobin Concent 35.1 Red Cell Distribution Width 22.3 H Platelet Count 82 L Mean Platelet Volume 10.3 Neutrophils % 80.0 H Lymphocytes % 10.7 L Monocytes % 7.4 Eosinophils % 0.5 Basophils % 0.3 Nucleated Red Blood Cells % 0.0 Neutrophils # 5.3 Lymphocytes # 0.7 L Monocytes # 0.5 Eosinophils # 0.0 Basophils # 0.0 Nucleated Red Blood Cells # 0.0 Sodium Level 137 Potassium Level 3.9 Chloride Level 101 Carbon Dioxide Level 27 Anion Gap 13 Blood Urea Nitrogen 15 Creatinine 0.86 Glucose Level 94 Calcium Level 7.5 L Total Bilirubin 11.8 H Direct Bilirubin 9.50 H Indirect Bilirubin 2.3 H Aspartate Amino Transf (AST/SGOT) 48 H Alanine Aminotransferase (ALT/SGPT) 53 Alkaline Phosphatase 241 H Total Protein 6.4 Albumin 2.1 L Test 02/18/17 06:32 02/18/17 06:33 Lab Scanned Report REFERENCE LAB BLOOD TRANSFUSION Medications Medications Current Medications Ondansetron HCl (Zofran Inj) 4 mg Q6H PRN IV NAUSEA AND/OR VOMITING; Start at 07:30 Acetaminophen (Tylenol Tab) 650 mg Q6H PRN PO PAIN LEVEL 1-3 OR FEVER Last administered on 02/16/17 23:46; Admin Dose 650 MG; Start 02/10/17 at 07:30 Ibuprofen (Motrin) 200 mg Q6H PRN PO PAIN OR TEMP ABOVE 38C Last administered on 02/13/17 09:35; Admin Dose 200 MG; Start 02/10/17 at 15:30; Status Future Hold Al Hydrox/Mg Hydrox/Simethicone (Mag-Al Plus) 30 ml Q6H PRN PO GASTROINTESTINAL UPSET Last administered on 02/16/17 23:46; Admin Dose 30 ML; Start 02/11/17 at 01:00 Trazodone HCl (Desyrel) 50 mg HS PO Last administered on 02/17/17 21:06; Admin Dose 50 MG; Start 02/11/17 at 21:00 Morphine Sulfate (morphine) 1 mg Q4H PRN IV pain Last administered on 20:35; Admin Dose 1 MG; Start 02/11/17 at 19:30 Lactulose (Enulose) 10 gm TID PO Last administered on 02/17/17 21:06; Admin Dose 10 GM; Start 02/17/17 at 13:00 Furosemide (Lasix) 20 mg DAILY PO ; Start 02/17/17 at 11:00 LORE HOUSTON 25, 2017 10:21
[2017-02-18 12:06] LABS: INR 1.43; PROTIME 17.5 Sec (12.2-14.2); PT RATIO 1.4
--- NOTE | 2017-02-18 12:31 | PN ---
Date/Time of Note Date/Time of Note DATE: 02/18/17 TIME: 12:23 Assessment/Plan VTE Prophylaxis VTE Prophylaxis Intervention: SCD's Lines/Catheters IV Catheter Type (from Nrs): Mid Line Assessment/Plan Chief Complaint/Hosp Course Assessment: Cholestatic jaundice Rule out CMV hepatitis Rule out biliary obstruction Doubt drug-induced Prolonged INR, concerning for significant liver dysfunction Postcholecystectomy 1996 High blood pressure Plan: CMV serologies IgM negative, IgG positive EBV IgM negative, IgG positive FFP given- will check INR- plan for liver bx today pending results of INR will check h/h when recheck INR Will recheck H/H if hgb 7.5 or less will transfuse 1 unit PRBcs Pt seen in collaboration with Dr. Toledo Subjective: Course reviewed with nursing staff Patient interviewed and examined All labs, imaging and other results reviewed Resting in bed awake alert, receiving FFP INR continues to drop, plan for liver bx today if INR appropriate If h/h remians low will transfuse 1 unit PRBC's. Pt resting in bed no acute events over night PHYSICAL EXAMINATION: GENERAL: Well developed, well nourished, alert & oriented x 3, in no acute distress SKIN: Jaundice. Otherwise no lesions, no stigmata chronic liver disease, no evidence of bleeding diathesis LYMPHATIC: No palpable lymphadenopathy. HEAD: Normocephalic, atraumatic, no tenderness. EYES: Pupils equal reactive to light and accommodation, full extraocular movements, sclera clear, non-icteric, no discharge. EARS/NOSE AND THROAT: Ears normal, nose normal, oropharynx normal, oral membranes well hydrated without lesions. NECK: Supple, no masses, thyroid normal, JVP within normal limits, carotids normal without bruits. CHEST: Inspection within normal limits. CARDIOVASCULAR: Heart: Regular rate and rhythm, no murmurs, gallops or rubs. Peripheral pulses present within normal limits, no cyanosis, clubbing or edemas. No pulsatile abdominal mass RESPIRATORY: Lungs clear to auscultation and percussion, no wheezing, no rubs GASTROINTESTINAL AND LIVER: Abdomen: Soft, mild tenderness in the epigastrium and right upper quadrant, non-distended, no hernias, no masses, no Taylor sign, no guarding, no rebound tenderness, normoactive bowel sounds. Rectal: Deferred. GENITOURINARY: Female genitalia within normal limits. EXTREMITIES: BLE edema. Problems: Exam/Review of Systems Vital Signs Vitals Vital Signs Date Time Temp Pulse Resp B/P Pulse Ox O2 Delivery O2 Flow Rate FiO2 02/18/17 07:39 98.8 80 16 90/53 96 02/17/17 01:31 Room Air Intake and Output 02/17/17 02/17/17 02/18/17 15:00 23:00 07:00 Intake Total 20 ml 1710 ml Output Total 1300 ml 100 ml Balance 20 ml 410 ml -100 ml Results Result Diagram: 02/18/1715 02/18/17 0515 Results 24 hrs Laboratory Tests Test 02/17/17 14:45 02/17/17 14:57 02/18/17 05:15 02/18/17 06:32 Hemoglobin 8.1 L 7.4 L Hematocrit 22.8 L 21.1 L Prothrombin Time 18.7 H Prothrombin Time Ratio 1.5 INR International Normalized Ratio 1.55 White Blood Count 6.6 Red Blood Count 2.51 L Mean Corpuscular Volume 84.1 Mean Corpuscular Hemoglobin 29.5 Mean Corpuscular Hemoglobin Concent 35.1 Red Cell Distribution Width 22.3 H Platelet Count 82 L Mean Platelet Volume 10.3 Neutrophils % 80.0 H Lymphocytes % 10.7 L Monocytes % 7.4 Eosinophils % 0.5 Basophils % 0.3 Nucleated Red Blood Cells % 0.0 Neutrophils # 5.3 Lymphocytes # 0.7 L Monocytes # 0.5 Eosinophils # 0.0 Basophils # 0.0 Nucleated Red Blood Cells # 0.0 Sodium Level 137 Potassium Level 3.9 Chloride Level 101 Carbon Dioxide Level 27 Anion Gap 13 Blood Urea Nitrogen 15 Creatinine 0.86 Glucose Level 94 Calcium Level 7.5 L Total Bilirubin 11.8 H Direct Bilirubin 9.50 H Indirect Bilirubin 2.3 H Aspartate Amino Transf (AST/SGOT) 48 H Alanine Aminotransferase (ALT/SGPT) 53 Alkaline Phosphatase 241 H Ammonia 24 Total Protein 6.4 Albumin 2.1 L Lab Scanned Report REFERENCE LAB Test 02/18/17 06:33 02/18/17 10:37 Lab Scanned Report BLOOD TRANSFUSION Prothrombin Time 17.5 H Prothrombin Time Ratio 1.4 INR International Normalized Ratio 1.43 Medications Medications Current Medications Ondansetron HCl (Zofran Inj) 4 mg Q6H PRN IV NAUSEA AND/OR VOMITING; Start at 07:30 Acetaminophen (Tylenol Tab) 650 mg Q6H PRN PO PAIN LEVEL 1-3 OR FEVER Last administered on 02/16/17 23:46; Admin Dose 650 MG; Start 02/10/17 at 07:30 Ibuprofen (Motrin) 200 mg Q6H PRN PO PAIN OR TEMP ABOVE 38C Last administered on 02/13/17 09:35; Admin Dose 200 MG; Start 02/10/17 at 15:30; Status Future Hold Al Hydrox/Mg Hydrox/Simethicone (Mag-Al Plus) 30 ml Q6H PRN PO GASTROINTESTINAL UPSET Last administered on 02/16/17 23:46; Admin Dose 30 ML; Start 02/11/17 at 01:00 Trazodone HCl (Desyrel) 50 mg HS PO Last administered on 02/17/17 21:06; Admin Dose 50 MG; Start 02/11/17 at 21:00 Morphine Sulfate (morphine) 1 mg Q4H PRN IV pain Last administered on 20:35; Admin Dose 1 MG; Start 02/11/17 at 19:30 Furosemide (Lasix) 20 mg DAILY PO ; Start 02/17/17 at 11:00 Lactulose (Enulose) 10 gm BID PO ; Start 02/18/17 at 21:00 SHIREEN TREVIZO Feb 18, 2017 12:31
[2017-02-18 14:23] LABS: ABNORMAL IP MESSAGE 1; HEMATOCRIT 20.1 % (37.0-47.0); MEAN CORPUSCULAR HEMOGLOBIN 29.7 pg (29.0-33.0); MEAN CORPUSCULAR HGB CONC 34.3 g/dl (32.0-37.0); MEAN CORPUSCULAR VOLUME 86.6 fl (82.0-101.0); MEAN PLATELET VOLUME 9.2 fl (7.4-10.4); PLATELET COUNT 58 10^3/UL (140-415); RED BLOOD COUNT 2.32 10^6/ul (4.20-5.40); RED CELL DISTRIBUTION WIDTH 21.9 % (11.5-14.5); WHITE BLOOD COUNT 5.5 10^3/ul (4.8-10.8)
[2017-02-18 14:24] LABS: POSITIVE DIFF @See below
[2017-02-18 14:29] LABS: HEMOGLOBIN 6.9 g/dl (12.0-16.0)
[2017-02-18 14:47] LABS: INR 1.48; PT RATIO 1.4
[2017-02-18 14:57] LABS: ANISOCYTOSIS 2+ (0-0); EOSINOPHILS % (M) 1 % (0-7); HYPOCHROMASIA 3+ (0-0); MONOCYTES % (M) 5 % (0-11); MYELOCYTES % (M) 1 % (0-0); PLATELET ESTIMATE SIG DECREASED; POLYCHROMASIA 3+ (0-0)
[2017-02-18 16:24] LABS: ABNORMAL IP MESSAGE 1; HEMATOCRIT 18.9 % (37.0-47.0); MEAN CORPUSCULAR HGB CONC 34.4 g/dl (32.0-37.0); MEAN CORPUSCULAR VOLUME 87.1 fl (82.0-101.0); MEAN PLATELET VOLUME 10.5 fl (7.4-10.4); PLATELET COUNT 75 10^3/UL (140-415); RED BLOOD COUNT 2.17 10^6/ul (4.20-5.40); RED CELL DISTRIBUTION WIDTH 22.2 % (11.5-14.5)
[2017-02-18 16:29] LABS: HEMOGLOBIN 6.5 g/dl (12.0-16.0); POSITIVE DIFF @See below; WHITE BLOOD COUNT 4.9 10^3/ul (4.8-10.8)
[2017-02-18 16:59] LABS: ANISOCYTOSIS 1+ (0-0); BASOPHILS % (M) 1 % (0-2); BURR CELLS 1+ (0-0); HYPOCHROMASIA 1+ (0-0); MONOCYTES % (M) 7 % (0-11); PLATELET ESTIMATE DECREASED; POIKILOCYTOSIS 1+ (0-0); TARGET CELLS 1+ (0-0)
[2017-02-18] MEDS ORDERED: LIDOCAINE 1% (MDV) 20 ML INJ ONE (19:21)
[2017-02-18] MEDS ORDERED: DIATRIZOATE MEGLUMINE 300 ML BTL UR ONE (19:21)
[2017-02-18] MEDS: morphine 2 MG INJ IV PRN ×2 (19:51→23:37)
[2017-02-18] MEDS ORDERED: LIDOCAINE 1% (MPF) 5 ML VIAL ONE (19:58)
[2017-02-18] MEDS: traZODone 50 MG TAB PO SCH (20:55)
[2017-02-18] MEDS: ACETAMINOPHEN 325 MG TAB PO PRN (23:37)
[2017-02-19 00:20] VITALS: BP 109/64; PULSE 74; RESP 18
[2017-02-19 01:20] VITALS: BP 108/66; PULSE 77; RESP 18
--- NOTE | 2017-02-19 01:30 | RADRPT ---
PROCEDURE: Ultrasound guided liver biopsy CLINICAL INDICATION: Elevated LFTs TECHNIQUE: Multiple sonographic images of the liver were obtained utilizing a grayscale and color- flow. The images were reviewed on a high-resolution PACS workstation. A site in the patient's right abdomen was selected and marked. The area was prepped and draped in the usual sterile fashion. 10 cc of 1% lidocaine was used to ane sthetize skin and subcutaneous tissues. A 20-gauge biopsy gun and 19-gauge sheath was inserted into the liver using coaxial technique and ul trasound guidance. 3 biopsy specimens were obtained. A slurry of Gelfoam and sterile saline was injected into the biopsy tract through the 19-gauge coaxi al sheath. The needle was then removed. A sterile dressing was applied. COMPARISON: None FINDINGS: Surgeon: Yvette CASTRO Specimens: Three 20-gauge x 2 cm biopsy specimens were obtained Estimated blood loss: 0 cc. Condition: Stable. Preprocedural diagnosis: Liver failure.. Postprocedural diagnosis: Liver failure. Complications: None. IMPRESSION: 1. Uncomplicated ultrasound-guided liver biopsy. RPTAT: II .Owen Crawford MD, Date Time Electronically viewed and signed by .Owen Crawford MD, on 02/19/2017 01:29 .M/
[2017-02-19 02:16] VITALS: BP 100/63; RESP 18
[2017-02-19 05:42] LABS: ABNORMAL IP MESSAGE 1; BASOPHILS % 0.5 % (0.0-2.0); EOSINOPHILS % 0.7 % (0.0-7.0); HEMATOCRIT 25.8 % (37.0-47.0); HEMOGLOBIN 9.1 g/dl (12.0-16.0); LYMPHOCYTES # 0.6 10^3/ul (0.8-2.9); LYMPHOCYTES % 9.8 % (15.0-51.0); MEAN CORPUSCULAR HEMOGLOBIN 29.8 pg (29.0-33.0); MEAN CORPUSCULAR HGB CONC 35.3 g/dl (32.0-37.0); MEAN CORPUSCULAR VOLUME 84.6 fl (82.0-101.0); MEAN PLATELET VOLUME 8.6 fl (7.4-10.4); MONOCYTE # 0.4 10^3/ul (0.3-0.9); NEUTROPHIL # 4.9 10^3/ul (1.6-7.5); NEUTROPHILS % 81.3 % (39.0-77.0); PLATELET COUNT 56 10^3/UL (140-415); RED BLOOD COUNT 3.05 10^6/ul (4.20-5.40); RED CELL DISTRIBUTION WIDTH 19.8 % (11.5-14.5)
[2017-02-19 05:48] LABS: POSITIVE DIFF @See below
[2017-02-19 06:02] LABS: CALCIUM 7.6 mg/dl (8.4-10.2); CREATININE 0.78 mg/dl (0.44-1.00); POTASSIUM 3.5 mmol/L (3.5-5.1)
[2017-02-19 07:36] VITALS: BP 104/59; RESP 16
[2017-02-19] MEDS: FUROSEMIDE 20 MG TAB PO SCH (08:46)
[2017-02-19] MEDS: LACTULOSE 30ML CUP PO SCH ×3 (08:47→20:09)
[2017-02-19] MEDS: morphine 2 MG INJ IV PRN ×3 (09:44→20:47)
--- NOTE | 2017-02-19 11:22 | PN ---
Date/Time of Note Date/Time of Note DATE: 02/19/17 TIME: 11:20 Assessment/Plan VTE Prophylaxis VTE Prophylaxis Intervention: SCD's Lines/Catheters IV Catheter Type (from Nrs): Mid Line Assessment/Plan Chief Complaint/Hosp Course Assessment: Cholestatic jaundice Rule out CMV hepatitis Rule out biliary obstruction Doubt drug-induced Prolonged INR, concerning for significant liver dysfunction Postcholecystectomy 1996 High blood pressure Plan: CMV serologies IgM negative, IgG positive EBV IgM negative, IgG positive AMA - negative Smooth muscle Ab negative S/p liver bx yesterday S/p blood transfusions- Hgb now stable Will continue to monitor Further recommendations based on liver bx results Pt seen in collaboration with Dr. Toledo Subjective: Course reviewed with nursing staff Patient interviewed and examined All labs, imaging and other results reviewed Pt feels ok, no complaints at this time PHYSICAL EXAMINATION: GENERAL: Well developed, well nourished, alert & oriented x 3, in no acute distress SKIN: Jaundice. Otherwise no lesions, no stigmata chronic liver disease, no evidence of bleeding diathesis LYMPHATIC: No palpable lymphadenopathy. HEAD: Normocephalic, atraumatic, no tenderness. EYES: Pupils equal reactive to light and accommodation, full extraocular movements, sclera clear, non-icteric, no discharge. EARS/NOSE AND THROAT: Ears normal, nose normal, oropharynx normal, oral membranes well hydrated without lesions. NECK: Supple, no masses, thyroid normal, JVP within normal limits, carotids normal without bruits. CHEST: Inspection within normal limits. CARDIOVASCULAR: Heart: Regular rate and rhythm, no murmurs, gallops or rubs. Peripheral pulses present within normal limits, no cyanosis, clubbing or edemas. No pulsatile abdominal mass RESPIRATORY: Lungs clear to auscultation and percussion, no wheezing, no rubs GASTROINTESTINAL AND LIVER: Abdomen: Soft, mild tenderness in the epigastrium and right upper quadrant, non-distended, no hernias, no masses, no Taylor sign, no guarding, no rebound tenderness, normoactive bowel sounds. Rectal: Deferred. GENITOURINARY: Female genitalia within normal limits. EXTREMITIES: BLE edema. Problems: Exam/Review of Systems Vital Signs Vitals Vital Signs Date Time Temp Pulse Resp B/P Pulse Ox O2 Delivery O2 Flow Rate FiO2 02/19/17 07:36 98.0 79 16 104/59 96 11/26/17 01:20 Room Air Intake and Output 02/18/17 02/18/17 02/19/17 15:00 23:00 07:00 Intake Total 0 ml 2420 ml Output Total 800 ml Balance -800 ml 2420 ml Results Result Diagram: 02/19/17 0519 02/19/17 0519 Results 24 hrs Laboratory Tests Test 02/18/17 14:16 02/18/17 15:56 02/19/17 05:19 02/19/17 05:25 White Blood Count 5.5 4.9 6.0 # Red Blood Count 2.32 L 2.17 L 3.05 #L Hemoglobin 6.9 *L 6.5 *L 9.1 #L Hematocrit 20.1 L 18.9 L 25.8 #L Mean Corpuscular Volume 86.6 87.1 84.6 Mean Corpuscular Hemoglobin 29.7 30.0 29.8 Mean Corpuscular Hemoglobin Concent 34.3 34.4 35.3 Red Cell Distribution Width 21.9 H 22.2 H 19.8 H Platelet Count 58 #L 75 #L 56 #L Mean Platelet Volume 9.2 10.5 H 8.6 Neutrophils % 81.3 H Segmented Neutrophils % (Manual) 79 H 68 Band Neutrophils % (Manual) 8 H 17 H Lymphocytes % 9.8 L Lymphocytes % (Manual) 6 L 7 L Monocytes % 7.0 Monocytes % (Manual) 5 7 Eosinophils % 0.7 Eosinophils % (Manual) 1 Basophils % 0.5 Myelocytes % (Manual) 1 H Nucleated Red Blood Cells % 0.0 0.0 0.0 Neutrophils # 4.9 Neutrophils # (Manual) 4.4 3.4 Band Neutrophils # 0.4 0.8 H Absolute Lymphocytes (Manual) 0.3 L 0.3 L Lymphocytes # 0.6 L Monocytes # 0.4 Absolute Monocytes (Manual) 0.2 L 0.3 Eosinophils # 0.0 Basophils # 0.0 Myelocytes # 0.0 Nucleated Red Blood Cells # 0.0 Platelet Estimate SIG DECREASED DECREASED Polychromasia 3+ Hypochromasia 3+ 1+ Anisocytosis 2+ 1+ Macrocytosis 2+ Prothrombin Time 18.0 H Prothrombin Time Ratio 1.4 INR International Normalized Ratio 1.48 Basophils % (Manual) 1 Basophils # (Manual) 0.0 Poikilocytosis 1+ Target Cells 1+ Sodium Level 138 Potassium Level 3.5 Chloride Level 103 Carbon Dioxide Level 27 Anion Gap 12 Blood Urea Nitrogen 15 Creatinine 0.78 Glucose Level 101 Calcium Level 7.6 L Ammonia 44 #H Lab Scanned Report BLOOD TRANSFUSION Medications Medications Current Medications Ondansetron HCl (Zofran Inj) 4 mg Q6H PRN IV NAUSEA AND/OR VOMITING; Start at 07:30 Acetaminophen (Tylenol Tab) 650 mg Q6H PRN PO PAIN LEVEL 1-3 OR FEVER Last administered on 02/18/17 23:37; Admin Dose 650 MG; Start 02/10/17 at 07:30 Ibuprofen (Motrin) 200 mg Q6H PRN PO PAIN OR TEMP ABOVE 38C Last administered on 02/13/17 09:35; Admin Dose 200 MG; Start 02/10/17 at 15:30; Status Future Hold Al Hydrox/Mg Hydrox/Simethicone (Mag-Al Plus) 30 ml Q6H PRN PO GASTROINTESTINAL UPSET Last administered on 02/16/17 23:46; Admin Dose 30 ML; Start 02/11/17 at 01:00 Trazodone HCl (Desyrel) 50 mg HS PO Last administered on 02/18/17 20:55; Admin Dose 50 MG; Start 02/11/17 at 21:00 Morphine Sulfate (morphine) 1 mg Q4H PRN IV pain Last administered on 09:44; Admin Dose 1 MG; Start 02/11/17 at 19:30 Furosemide (Lasix) 20 mg DAILY PO Last administered on 02/19/17 08:46; Admin Dose 20 MG; Start 02/17/17 at 11:00 Lactulose (Enulose) 10 gm BID PO Last administered on 02/19/17 08:47; Admin Dose 10 GM; Start 02/18/17 at 21:00 SHIREEN TREVIZO Feb 19, 2017 11:22
--- NOTE | 2017-02-19 11:32 | PN ---
Date/Time of Note Date/Time of Note DATE: 02/19/17 TIME: 11:31 Assessment/Plan VTE Prophylaxis VTE Prophylaxis Intervention: SCD's Lines/Catheters IV Catheter Type (from Nrs): Mid Line Assessment/Plan Chief Complaint/Hosp Course S: Patient finally had liver biopsy performed yesterday, having some mild right upper quadrant pain, no signs of any upper or lower GI bleeding, no hematuria. Received PRBC transfusion yesterday as well. Otherwise no acute events overnight. O: VS (see below) PE: responds to questions appropriately-->no evidence of encephalopathy + jaundice Pupils equal round reactive to light, extra muscles intact Supple no mrg abd soft, mild tenderness palpation right upper quadrant Trace pitting edema bilateral lower extremities to the mid calves Assessment/Plan: 47 yo F with pmhx HTN admitted for fatigue, chills, scleral icterus found to have evidence of hepatic dysfunction of unclear etiology ( hyperbilirubinemia, transaminitis, coagulopathy), apparently with recent mononucleosis infection as well. 1. weakness: Patient with hepatic dysfunction. Still with jaundice and elevated LFT's. Much appreciate GI/hepatology assistance. MRCP results noted below. Patient with positive IgG EBV titer, consistent with previous exposure and not acute infection. HIV neg; CMV serologies in process; SmAb neg. hep C VL in process, apap level negative, HSV IgMs. -Continue supportive care, status post liver biopsy -follow-up results of this -Continue to trend LFTs (still elevated) -Follow-up GI recommendations 2. ESLD -patient again with elevated liver function tests, positive jaundice, ammonia levels fluctuating between normal and slightly elevated, patient asymptomatic -Trend ammonia levels, continue lactulose 3. WILLIAM -resolved now Will cont to monitor 4. Lower extremity pain and swelling: Improving now. Lower extremity ultrasound negative for DVT bilaterally a few days ago. -Keep legs elevated, monitor -Low-dose p.o. Lasix Problems: Exam/Review of Systems Vital Signs Vitals Vital Signs Date Time Temp Pulse Resp B/P Pulse Ox O2 Delivery O2 Flow Rate FiO2 02/19/17 07:36 98.0 79 16 104/59 96 02/19/17 01:20 Room Air Intake and Output 02/18/17 02/18/17 02/19/17 14:59 22:59 06:59 Intake Total 0 ml 2420 ml Output Total 800 ml Balance -800 ml 2420 ml Results Result Diagram: 02/19/17 0519 02/19/17 0519 Results 24 hrs Laboratory Tests Test 02/18/17 14:16 02/18/17 15:56 02/19/17 05:19 02/19/17 05:25 White Blood Count 5.5 4.9 6.0 # Red Blood Count 2.32 L 2.17 L 3.05 #L Hemoglobin 6.9 *L 6.5 *L 9.1 #L Hematocrit 20.1 L 18.9 L 25.8 #L Mean Corpuscular Volume 86.6 87.1 84.6 Mean Corpuscular Hemoglobin 29.7 30.0 29.8 Mean Corpuscular Hemoglobin Concent 34.3 34.4 35.3 Red Cell Distribution Width 21.9 H 22.2 H 19.8 H Platelet Count 58 #L 75 #L 56 #L Mean Platelet Volume 9.2 10.5 H 8.6 Neutrophils % 81.3 H Segmented Neutrophils % (Manual) 79 H 68 Band Neutrophils % (Manual) 8 H 17 H Lymphocytes % 9.8 L Lymphocytes % (Manual) 6 L 7 L Monocytes % 7.0 Monocytes % (Manual) 5 7 Eosinophils % 0.7 Eosinophils % (Manual) 1 Basophils % 0.5 Myelocytes % (Manual) 1 H Nucleated Red Blood Cells % 0.0 0.0 0.0 Neutrophils # 4.9 Neutrophils # (Manual) 4.4 3.4 Band Neutrophils # 0.4 0.8 H Absolute Lymphocytes (Manual) 0.3 L 0.3 L Lymphocytes # 0.6 L Monocytes # 0.4 Absolute Monocytes (Manual) 0.2 L 0.3 Eosinophils # 0.0 Basophils # 0.0 Myelocytes # 0.0 Nucleated Red Blood Cells # 0.0 Platelet Estimate SIG DECREASED DECREASED Polychromasia 3+ Hypochromasia 3+ 1+ Anisocytosis 2+ 1+ Macrocytosis 2+ Prothrombin Time 18.0 H Prothrombin Time Ratio 1.4 INR International Normalized Ratio 1.48 Basophils % (Manual) 1 Basophils # (Manual) 0.0 Poikilocytosis 1+ Target Cells 1+ Sodium Level 138 Potassium Level 3.5 Chloride Level 103 Carbon Dioxide Level 27 Anion Gap 12 Blood Urea Nitrogen 15 Creatinine 0.78 Glucose Level 101 Calcium Level 7.6 L Ammonia 44 #H Lab Scanned Report BLOOD TRANSFUSION Medications Medications Current Medications Ondansetron HCl (Zofran Inj) 4 mg Q6H PRN IV NAUSEA AND/OR VOMITING; Start at 07:30 Acetaminophen (Tylenol Tab) 650 mg Q6H PRN PO PAIN LEVEL 1-3 OR FEVER Last administered on 02/18/17 23:37; Admin Dose 650 MG; Start 02/10/17 at 07:30 Ibuprofen (Motrin) 200 mg Q6H PRN PO PAIN OR TEMP ABOVE 38C Last administered on 02/13/17 09:35; Admin Dose 200 MG; Start 02/10/17 at 15:30; Status Future Hold Al Hydrox/Mg Hydrox/Simethicone (Mag-Al Plus) 30 ml Q6H PRN PO GASTROINTESTINAL UPSET Last administered on 02/16/17 23:46; Admin Dose 30 ML; Start 02/11/17 at 01:00 Trazodone HCl (Desyrel) 50 mg HS PO Last administered on 02/18/17 20:55; Admin Dose 50 MG; Start 02/11/17 at 21:00 Morphine Sulfate (morphine) 1 mg Q4H PRN IV pain Last administered on 09:44; Admin Dose 1 MG; Start 02/11/17 at 19:30 Furosemide (Lasix) 20 mg DAILY PO Last administered on 02/19/17 08:46; Admin Dose 20 MG; Start 02/17/17 at 11:00 Lactulose (Enulose) 10 gm BID PO Last administered on 02/19/17 08:47; Admin Dose 10 GM; Start 02/18/17 at 21:00 LORE HOUSTON 26, 2017 11:32
[2017-02-19 13:48] VITALS: BP 95/56; RESP 18
[2017-02-19 20:00] VITALS: BP 103/61; PULSE 78; RESP 18
[2017-02-19] MEDS: traZODone 50 MG TAB PO SCH (20:09)
[2017-02-20 02:00] VITALS: BP 108/64; PULSE 80; RESP 18
[2017-02-20] MEDS: ACETAMINOPHEN 325 MG TAB PO PRN (02:52)
[2017-02-20 06:34] LABS: ABNORMAL IP MESSAGE 1; BASOPHILS % 0.5 % (0.0-2.0); EOSINOPHILS # 0.1 10^3/ul (0.0-0.5); EOSINOPHILS % 0.9 % (0.0-7.0); HEMOGLOBIN 8.8 g/dl (12.0-16.0); LYMPHOCYTES # 0.7 10^3/ul (0.8-2.9); LYMPHOCYTES % 10.8 % (15.0-51.0); MEAN CORPUSCULAR HEMOGLOBIN 29.7 pg (29.0-33.0); MEAN CORPUSCULAR HGB CONC 35.2 g/dl (32.0-37.0); MEAN CORPUSCULAR VOLUME 84.5 fl (82.0-101.0); MEAN PLATELET VOLUME 9.3 fl (7.4-10.4); MONOCYTE # 0.5 10^3/ul (0.3-0.9); MONOCYTES % 7.5 % (0.0-11.0); NEUTROPHIL # 5.3 10^3/ul (1.6-7.5); NEUTROPHILS % 79.8 % (39.0-77.0); RED BLOOD COUNT 2.96 10^6/ul (4.20-5.40); RED CELL DISTRIBUTION WIDTH 20.8 % (11.5-14.5); WHITE BLOOD COUNT 6.7 10^3/ul (4.8-10.8)
[2017-02-20 06:37] LABS: POSITIVE DIFF @See below
[2017-02-20 06:38] LABS: PLATELET COUNT 61 10^3/UL (140-415)
[2017-02-20 06:52] LABS: BILIRUBIN,DIRECT 4.8 mg/dl (0.00-0.20); BILIRUBIN,TOTAL 6.8 mg/dl (0.2-1.3); TOTAL PROTEIN 6.3 g/dl (6.1-8.1)
[2017-02-20 07:06] LABS: CALCIUM 7.4 mg/dl (8.4-10.2); CREATININE 0.87 mg/dl (0.44-1.00); MAGNESIUM 1.4 mg/dl (1.7-2.5); PHOSPHORUS 3.6 mg/dl (2.5-4.9); POTASSIUM 3.7 mmol/L (3.5-5.1)
[2017-02-20 07:59] VITALS: BP 107/64; RESP 16
--- NOTE | 2017-02-20 08:35 | RADRPT ---
PROCEDURE: US Abdomen. CLINICAL INDICATION: r/o liver hematoma TECHNIQUE: Multiple real-time images were acquired of the patient's abdomen and retroperitoneum ut ilizing a high resolution transducer. COMPARISON: None FINDINGS: Study is technically limited due to overlying bowel gas. The liver is of normal size, contour and echogenicity with no mass or intrahepatic ductal dilatation . The common bile duct measures 6 mm in transverse plane. Gallbladder has been removed. Limited visu alization of pancreas is normal. There is no ascites. No upper abdominal hematoma is identified. Spl een is enlarged measuring 17 cm. Right kidney measures 11.4 cm and left kidney measures 11.2 cm in l ength. No hydronephrosis, calculus or masses present. There is no evidence of abdominal aortic aneur ysm or caval thrombosis. Portal and hepatic vein are patent on color flow Doppler imaging. IMPRESSION: No evidence of upper abdominal hematoma or hemoperitoneum on limited abdominal ultrasound. Post cholecystectomy. Splenomegaly. .Kushal Brownlee MD, MD Date Time Electronically viewed and signed by .Kushal Brownlee MD, on 02/20/2017 08:35 .A/
[2017-02-20] MEDS: morphine 2 MG INJ IV PRN ×3 (08:41→20:25)
[2017-02-20] MEDS: LACTULOSE 30ML CUP PO SCH ×2 (09:39→12:12)
[2017-02-20] MEDS: FUROSEMIDE 20 MG TAB PO SCH (09:39)
[2017-02-20] MEDS: AL HYDROX/MG HYDROX/SIMETH 30 ML CUP PO PRN (12:20)
[2017-02-20 15:10] VITALS: BP 109/59; RESP 16
--- NOTE | 2017-02-20 15:38 | PN ---
Date/Time of Note Date/Time of Note DATE: 02/20/17 TIME: 15:31 Assessment/Plan VTE Prophylaxis VTE Prophylaxis Intervention: SCD's Lines/Catheters IV Catheter Type (from Nrs): Mid Line Assessment/Plan Assessment/Plan 47 yo F with pmhx HTN admitted for fatigue, chills, scleral icterus found to have evidence of hepatic dysfunction of unclear etiology (hyperbilirubinemia, transaminitis, coagulopathy) #hepatic dysfunction: sp biopsy last week, results pending HIV negative, smAb negative. HepC EBV and CMV consistent with previous exposure. imaging without evidence of biliary obstruction. hep A cw previous exposure, hep B negative stop lactulose as pt did not have evidence of hepatic encephalopathy during her stay discharge pending liver biopsy results, continued improvement in liver profile Subjective 24 Hr Interval Summary Free Text/Dictation Pt seen ambulating in the hallway this AM Exam/Review of Systems Vital Signs Vitals Vital Signs Date Time Temp Pulse Resp B/P Pulse Ox O2 Delivery O2 Flow Rate FiO2 02/20/17 15:10 98.6 72 16 109/59 98 02/20/17 02:00 Room Air Intake and Output 02/19/17 02/19/17 02/20/17 15:00 23:00 07:00 Intake Total 720 ml Output Total 800 ml Balance -80 ml Exam nad, slightly less jaundiced than when I saw her last week resp nonlabored no abd distension follows commands liver profile slightly improved CMV, EBV, HepC serologies consistent with previous exposure HSV IgM negative Results Result Diagram: 02/20/17 0546 02/20/17 0546 Results 24 hrs Laboratory Tests Test 02/19/17 19:20 02/20/17 05:45 02/20/17 05:46 Stool Occult Blood NEGATIVE Ammonia 16 # White Blood Count 6.7 Red Blood Count 2.96 L Hemoglobin 8.8 L Hematocrit 25.0 L Mean Corpuscular Volume 84.5 Mean Corpuscular Hemoglobin 29.7 Mean Corpuscular Hemoglobin Concent 35.2 Red Cell Distribution Width 20.8 H Platelet Count 61 L Mean Platelet Volume 9.3 Neutrophils % 79.8 H Lymphocytes % 10.8 L Monocytes % 7.5 Eosinophils % 0.9 Basophils % 0.5 Nucleated Red Blood Cells % 0.0 Neutrophils # 5.3 Lymphocytes # 0.7 L Monocytes # 0.5 Eosinophils # 0.1 Basophils # 0.0 Nucleated Red Blood Cells # 0.0 Sodium Level 136 Potassium Level 3.7 Chloride Level 103 Carbon Dioxide Level 25 Anion Gap 12 Blood Urea Nitrogen 13 Creatinine 0.87 Glucose Level 85 Calcium Level 7.4 L Phosphorus Level 3.6 Magnesium Level 1.4 L Total Bilirubin 6.8 H Direct Bilirubin 4.80 H Indirect Bilirubin 2.0 H Aspartate Amino Transf (AST/SGOT) 36 Alanine Aminotransferase (ALT/SGPT) 42 Alkaline Phosphatase 180 H Total Protein 6.3 Albumin 2.0 L Medications Medications Current Medications Ondansetron HCl (Zofran Inj) 4 mg Q6H PRN IV NAUSEA AND/OR VOMITING; Start at 07:30 Acetaminophen (Tylenol Tab) 650 mg Q6H PRN PO PAIN LEVEL 1-3 OR FEVER Last administered on 02/20/17 02:52; Admin Dose 650 MG; Start 02/10/17 at 07:30 Ibuprofen (Motrin) 200 mg Q6H PRN PO PAIN OR TEMP ABOVE 38C Last administered on 02/13/17 09:35; Admin Dose 200 MG; Start 02/10/17 at 15:30; Status Future Hold Al Hydrox/Mg Hydrox/Simethicone (Mag-Al Plus) 30 ml Q6H PRN PO GASTROINTESTINAL UPSET Last administered on 02/20/17 12:20; Admin Dose 30 ML; Start 02/11/17 at 01:00 Trazodone HCl (Desyrel) 50 mg HS PO Last administered on 02/19/17 20:09; Admin Dose 50 MG; Start 02/11/17 at 21:00 Morphine Sulfate (morphine) 1 mg Q4H PRN IV pain Last administered on 13:44; Admin Dose 1 MG; Start 02/11/17 at 19:30 Furosemide (Lasix) 20 mg DAILY PO Last administered on 02/20/17 09:39; Admin Dose 20 MG; Start 02/17/17 at 11:00 Lactulose (Enulose) 10 gm TID PO Last administered on 02/20/17 12:12; Admin Dose 10 GM; Start 02/19/17 at 13:00 LAUREN CHOI MD Feb 20, 2017 15:38
--- NOTE | 2017-02-20 18:14 | PN ---
Date/Time of Note Date/Time of Note DATE: 02/20/17 TIME: 18:09 Assessment/Plan VTE Prophylaxis VTE Prophylaxis Intervention: ambulation Lines/Catheters IV Catheter Type (from Nrs): Mid Line Assessment/Plan Chief Complaint/Hosp Course Assessment: Cholestatic jaundice CMV hepatitis/Ruled out MRCP negative Doubt drug-induced Prolonged INR, concerning for significant liver dysfunction Postcholecystectomy 1996 High blood pressure Plan: S/p liver bx Results pending S/p blood transfusions- Hgb now stable Will continue to monitor Further recommendations based on liver bx results Pt seen in collaboration with Dr. Toledo Subjective: Course reviewed with nursing staff Patient interviewed and examined All labs, imaging and other results reviewed Pt feels ok, no complaints at this time. Awaiting for liver biopsy results. PHYSICAL EXAMINATION: GENERAL: Well developed, well nourished, alert & oriented x 3, in no acute distress SKIN: Jaundice. Otherwise no lesions, no stigmata chronic liver disease, no evidence of bleeding diathesis LYMPHATIC: No palpable lymphadenopathy. HEAD: Normocephalic, atraumatic, no tenderness. EYES: Pupils equal reactive to light and accommodation, full extraocular movements, sclera clear, non-icteric, no discharge. EARS/NOSE AND THROAT: Ears normal, nose normal, oropharynx normal, oral membranes well hydrated without lesions. NECK: Supple, no masses, thyroid normal, JVP within normal limits, carotids normal without bruits. CHEST: Inspection within normal limits. CARDIOVASCULAR: Heart: Regular rate and rhythm, no murmurs, gallops or rubs. Peripheral pulses present within normal limits, no cyanosis, clubbing or edemas. No pulsatile abdominal mass RESPIRATORY: Lungs clear to auscultation and percussion, no wheezing, no rubs GASTROINTESTINAL AND LIVER: Abdomen: Soft, mild tenderness in the right upper quadrant, non-distended, no hernias, no masses, no Taylor sign, no guarding, no rebound tenderness, normoactive bowel sounds. Rectal: Deferred. GENITOURINARY: Female genitalia within normal limits. EXTREMITIES: BLE edema +1. Problems: Exam/Review of Systems Vital Signs Vitals Vital Signs Date Time Temp Pulse Resp B/P Pulse Ox O2 Delivery O2 Flow Rate FiO2 02/20/17 15:10 98.6 72 16 109/59 98 02/20/17 02:00 Room Air Intake and Output 02/19/17 02/19/17 02/20/17 15:00 23:00 07:00 Intake Total 720 ml Output Total 800 ml Balance -80 ml Results Result Diagram: 02/20/17 0546 02/20/1746 Results 24 hrs Laboratory Tests Test 02/19/17 19:20 02/20/17 05:45 02/20/17 05:46 Stool Occult Blood NEGATIVE Ammonia 16 # White Blood Count 6.7 Red Blood Count 2.96 L Hemoglobin 8.8 L Hematocrit 25.0 L Mean Corpuscular Volume 84.5 Mean Corpuscular Hemoglobin 29.7 Mean Corpuscular Hemoglobin Concent 35.2 Red Cell Distribution Width 20.8 H Platelet Count 61 L Mean Platelet Volume 9.3 Neutrophils % 79.8 H Lymphocytes % 10.8 L Monocytes % 7.5 Eosinophils % 0.9 Basophils % 0.5 Nucleated Red Blood Cells % 0.0 Neutrophils # 5.3 Lymphocytes # 0.7 L Monocytes # 0.5 Eosinophils # 0.1 Basophils # 0.0 Nucleated Red Blood Cells # 0.0 Sodium Level 136 Potassium Level 3.7 Chloride Level 103 Carbon Dioxide Level 25 Anion Gap 12 Blood Urea Nitrogen 13 Creatinine 0.87 Glucose Level 85 Calcium Level 7.4 L Phosphorus Level 3.6 Magnesium Level 1.4 L Total Bilirubin 6.8 H Direct Bilirubin 4.80 H Indirect Bilirubin 2.0 H Aspartate Amino Transf (AST/SGOT) 36 Alanine Aminotransferase (ALT/SGPT) 42 Alkaline Phosphatase 180 H Total Protein 6.3 Albumin 2.0 L Medications Medications Current Medications Ondansetron HCl (Zofran Inj) 4 mg Q6H PRN IV NAUSEA AND/OR VOMITING; Start at 07:30 Acetaminophen (Tylenol Tab) 650 mg Q6H PRN PO PAIN LEVEL 1-3 OR FEVER Last administered on 02/20/17 02:52; Admin Dose 650 MG; Start 02/10/17 at 07:30 Ibuprofen (Motrin) 200 mg Q6H PRN PO PAIN OR TEMP ABOVE 38C Last administered on 02/13/17 09:35; Admin Dose 200 MG; Start 02/10/17 at 15:30; Status Future Hold Al Hydrox/Mg Hydrox/Simethicone (Mag-Al Plus) 30 ml Q6H PRN PO GASTROINTESTINAL UPSET Last administered on 02/20/17 12:20; Admin Dose 30 ML; Start 02/11/17 at 01:00 Trazodone HCl (Desyrel) 50 mg HS PO Last administered on 02/19/17 20:09; Admin Dose 50 MG; Start 02/11/17 at 21:00 Morphine Sulfate (morphine) 1 mg Q4H PRN IV pain Last administered on 13:44; Admin Dose 1 MG; Start 02/11/17 at 19:30 Furosemide (Lasix) 20 mg DAILY PO Last administered on 02/20/17 09:39; Admin Dose 20 MG; Start 02/17/17 at 11:00 JIM TAYLOR NP Feb 20, 2017 18:14
[2017-02-20 20:08] VITALS: BP 101/63; RESP 16
[2017-02-20] MEDS: traZODone 50 MG TAB PO SCH (20:22)
[2017-02-21 01:55] VITALS: BP 104/64; RESP 16
[2017-02-21 05:51] LABS: ABNORMAL IP MESSAGE 1; BASOPHILS % 0.2 % (0.0-2.0); EOSINOPHILS # 0.1 10^3/ul (0.0-0.5); EOSINOPHILS % 1.2 % (0.0-7.0); HEMATOCRIT 25.4 % (37.0-47.0); HEMOGLOBIN 8.8 g/dl (12.0-16.0); LYMPHOCYTES # 0.7 10^3/ul (0.8-2.9); LYMPHOCYTES % 14.1 % (15.0-51.0); MEAN CORPUSCULAR HEMOGLOBIN 29.4 pg (29.0-33.0); MEAN CORPUSCULAR HGB CONC 34.6 g/dl (32.0-37.0); MEAN CORPUSCULAR VOLUME 84.9 fl (82.0-101.0); MEAN PLATELET VOLUME 9.3 fl (7.4-10.4); MONOCYTE # 0.4 10^3/ul (0.3-0.9); MONOCYTES % 7.4 % (0.0-11.0); NEUTROPHILS % 76.9 % (39.0-77.0); PLATELET COUNT 64 10^3/UL (140-415); RED BLOOD COUNT 2.99 10^6/ul (4.20-5.40); RED CELL DISTRIBUTION WIDTH 20.5 % (11.5-14.5); WHITE BLOOD COUNT 5.2 10^3/ul (4.8-10.8)
[2017-02-21 06:07] LABS: POSITIVE DIFF @See below
[2017-02-21 06:19] LABS: ALBUMIN 1.9 g/dl (3.3-4.9); BILIRUBIN,DIRECT 2.8 mg/dl (0.00-0.20); BILIRUBIN,INDIRECT 1.7 mg/dl (0-1.1); BILIRUBIN,TOTAL 4.5 mg/dl (0.2-1.3); TOTAL PROTEIN 6.1 g/dl (6.1-8.1)
[2017-02-21 06:25] LABS: CALCIUM 7.4 mg/dl (8.4-10.2); CREATININE 0.72 mg/dl (0.44-1.00); POTASSIUM 3.5 mmol/L (3.5-5.1)
[2017-02-21] MEDS: morphine 2 MG INJ IV PRN ×3 (06:41→20:36)
[2017-02-21 07:53] VITALS: BP 100/59; RESP 18
[2017-02-21] MEDS: FUROSEMIDE 20 MG TAB PO SCH (08:25)
[2017-02-21 14:15] VITALS: BP 117/56; RESP 18
--- NOTE | 2017-02-21 14:34 | PN ---
Date/Time of Note Date/Time of Note DATE: 02/21/17 TIME: 14:31 Assessment/Plan VTE Prophylaxis VTE Prophylaxis Intervention: ambulation Lines/Catheters IV Catheter Type (from Nrs): Mid Line Assessment/Plan Chief Complaint/Hosp Course Assessment: Cholestatic jaundice CMV hepatitis/Ruled out MRCP negative Doubt drug-induced Prolonged INR, concerning for significant liver dysfunction Postcholecystectomy 1996 High blood pressure Plan: S/p liver bx Results pending S/p blood transfusions- Hgb now stable Will continue to monitor Further recommendations based on liver bx results Pt seen in collaboration with Dr. Toledo Subjective: Course reviewed with nursing staff Patient interviewed and examined All labs, imaging and other results reviewed Pt feels abdominal pain is getting but still persist. Awaiting for liver biopsy results. PHYSICAL EXAMINATION: GENERAL: Well developed, well nourished, alert & oriented x 3, in no acute distress SKIN: Jaundice. Otherwise no lesions, no stigmata chronic liver disease, no evidence of bleeding diathesis LYMPHATIC: No palpable lymphadenopathy. HEAD: Normocephalic, atraumatic, no tenderness. EYES: Pupils equal reactive to light and accommodation, full extraocular movements, sclera clear, non-icteric, no discharge. EARS/NOSE AND THROAT: Ears normal, nose normal, oropharynx normal, oral membranes well hydrated without lesions. NECK: Supple, no masses, thyroid normal, JVP within normal limits, carotids normal without bruits. CHEST: Inspection within normal limits. CARDIOVASCULAR: Heart: Regular rate and rhythm, no murmurs, gallops or rubs. Peripheral pulses present within normal limits, no cyanosis, clubbing or edemas. No pulsatile abdominal mass RESPIRATORY: Lungs clear to auscultation and percussion, no wheezing, no rubs GASTROINTESTINAL AND LIVER: Abdomen: Soft, tenderness in mid epigastric area and right upper quadrant, non-distended, no hernias, no masses, no Taylor sign, no guarding, no rebound tenderness, normoactive bowel sounds. Rectal: Deferred. GENITOURINARY: Female genitalia within normal limits. EXTREMITIES: BLE edema +1. Problems: Exam/Review of Systems Vital Signs Vitals Vital Signs Date Time Temp Pulse Resp B/P Pulse Ox O2 Delivery O2 Flow Rate FiO2 02/21/17 14:15 98.6 97 18 117/56 93 02/20/17 02:00 Room Air Intake and Output 02/20/17 02/20/17 02/21/17 14:59 22:59 06:59 Intake Total 2520 ml Balance 2520 ml Results Result Diagram: 02/21/1752602/21/17526 Results 24 hrs Laboratory Tests Test 02/21/17 05:27 White Blood Count 5.2 # Red Blood Count 2.99 L Hemoglobin 8.8 L Hematocrit 25.4 L Mean Corpuscular Volume 84.9 Mean Corpuscular Hemoglobin 29.4 Mean Corpuscular Hemoglobin Concent 34.6 Red Cell Distribution Width 20.5 H Platelet Count 64 L Mean Platelet Volume 9.3 Neutrophils % 76.9 Lymphocytes % 14.1 L Monocytes % 7.4 Eosinophils % 1.2 Basophils % 0.2 Nucleated Red Blood Cells % 0.0 Neutrophils # 4.0 Lymphocytes # 0.7 L Monocytes # 0.4 Eosinophils # 0.1 Basophils # 0.0 Nucleated Red Blood Cells # 0.0 Sodium Level 135 Potassium Level 3.5 Chloride Level 102 Carbon Dioxide Level 26 Anion Gap 11 Blood Urea Nitrogen 12 Creatinine 0.72 Glucose Level 89 Calcium Level 7.4 L Total Bilirubin 4.5 #H Direct Bilirubin 2.80 #H Indirect Bilirubin 1.7 H Aspartate Amino Transf (AST/SGOT) 34 Alanine Aminotransferase (ALT/SGPT) 38 Alkaline Phosphatase 190 H Total Protein 6.1 Albumin 1.9 L Medications Medications Current Medications Ondansetron HCl (Zofran Inj) 4 mg Q6H PRN IV NAUSEA AND/OR VOMITING; Start at 07:30 Acetaminophen (Tylenol Tab) 650 mg Q6H PRN PO PAIN LEVEL 1-3 OR FEVER Last administered on 02/20/17 02:52; Admin Dose 650 MG; Start 02/10/17 at 07:30 Ibuprofen (Motrin) 200 mg Q6H PRN PO PAIN OR TEMP ABOVE 38C Last administered on 02/13/17 09:35; Admin Dose 200 MG; Start 02/10/17 at 15:30; Status Future Hold Al Hydrox/Mg Hydrox/Simethicone (Mag-Al Plus) 30 ml Q6H PRN PO GASTROINTESTINAL UPSET Last administered on 02/20/17 12:20; Admin Dose 30 ML; Start 02/11/17 at 01:00 Trazodone HCl (Desyrel) 50 mg HS PO Last administered on 02/20/17 20:22; Admin Dose 50 MG; Start 02/11/17 at 21:00 Morphine Sulfate (morphine) 1 mg Q4H PRN IV pain Last administered on 06:41; Admin Dose 1 MG; Start 02/11/17 at 19:30 Furosemide (Lasix) 20 mg DAILY PO Last administered on 02/21/17 08:25; Admin Dose 20 MG; Start 02/17/17 at 11:00 JIM TAYLOR NP Feb 21, 2017 14:34
--- NOTE | 2017-02-21 17:57 | PN ---
Date/Time of Note Date/Time of Note DATE: 02/21/17 TIME: 17:52 Assessment/Plan VTE Prophylaxis VTE Prophylaxis Intervention: SCD's Lines/Catheters IV Catheter Type (from Nrsg): Mid Line Assessment/Plan Assessment/Plan 47 yo F with pmhx HTN admitted for fatigue, chills, scleral icterus found to have evidence of hepatic dysfunction of unclear etiology (hyperbilirubinemia, transaminitis, coagulopathy) #hepatic dysfunction: sp biopsy last week, results pending-->called path today. results should be available tomorrow. HIV negative, smAb negative. HepC EBV and CMV consistent with previous exposure. imaging without evidence of biliary obstruction. hep A cw previous exposure, hep B negative stop lactulose as pt did not have evidence of hepatic encephalopathy during her stay discharge pending liver biopsy results, continued improvement in liver profile Subjective 24 Hr Interval Summary Free Text/Dictation No complaints Exam/Review of Systems Vital Signs Vitals Vital Signs Date Time Temp Pulse Resp B/P Pulse Ox O2 Delivery O2 Flow Rate FiO2 02/21/17 14:15 98.6 97 18 117/56 93 02/20/17 02:00 Room Air Intake and Output 02/20/17 02/20/17 02/21/17 15:00 23:00 07:00 Intake Total 2520 ml Balance 2520 ml Exam nad no mrg lungsclear abd soft jaundice improving liver profile again improved Results Result Diagram: 02/21/17 0527 02/21/17 0527 Results 24 hrs Laboratory Tests Test 02/21/17 05:27 White Blood Count 5.2 # Red Blood Count 2.99 L Hemoglobin 8.8 L Hematocrit 25.4 L Mean Corpuscular Volume 84.9 Mean Corpuscular Hemoglobin 29.4 Mean Corpuscular Hemoglobin Concent 34.6 Red Cell Distribution Width 20.5 H Platelet Count 64 L Mean Platelet Volume 9.3 Neutrophils % 76.9 Lymphocytes % 14.1 L Monocytes % 7.4 Eosinophils % 1.2 Basophils % 0.2 Nucleated Red Blood Cells % 0.0 Neutrophils # 4.0 Lymphocytes # 0.7 L Monocytes # 0.4 Eosinophils # 0.1 Basophils # 0.0 Nucleated Red Blood Cells # 0.0 Sodium Level 135 Potassium Level 3.5 Chloride Level 102 Carbon Dioxide Level 26 Anion Gap 11 Blood Urea Nitrogen 12 Creatinine 0.72 Glucose Level 89 Calcium Level 7.4 L Total Bilirubin 4.5 #H Direct Bilirubin 2.80 #H Indirect Bilirubin 1.7 H Aspartate Amino Transf (AST/SGOT) 34 Alanine Aminotransferase (ALT/SGPT) 38 Alkaline Phosphatase 190 H Total Protein 6.1 Albumin 1.9 L Medications Medications Current Medications Ondansetron HCl (Zofran Inj) 4 mg Q6H PRN IV NAUSEA AND/OR VOMITING; Start at 07:30 Acetaminophen (Tylenol Tab) 650 mg Q6H PRN PO PAIN LEVEL 1-3 OR FEVER Last administered on 02/20/17 02:52; Admin Dose 650 MG; Start 02/10/17 at 07:30 Ibuprofen (Motrin) 200 mg Q6H PRN PO PAIN OR TEMP ABOVE 38C Last administered on 02/13/17 09:35; Admin Dose 200 MG; Start 02/10/17 at 15:30; Status Future Hold Al Hydrox/Mg Hydrox/Simethicone (Mag-Al Plus) 30 ml Q6H PRN PO GASTROINTESTINAL UPSET Last administered on 02/20/17 12:20; Admin Dose 30 ML; Start 02/11/17 at 01:00 Trazodone HCl (Desyrel) 50 mg HS PO Last administered on 02/20/17 20:22; Admin Dose 50 MG; Start 02/11/17 at 21:00 Morphine Sulfate (morphine) 1 mg Q4H PRN IV pain Last administered on 16:13; Admin Dose 1 MG; Start 02/11/17 at 19:30 Furosemide (Lasix) 20 mg DAILY PO Last administered on 02/21/17 08:25; Admin Dose 20 MG; Start 02/17/17 at 11:00 LAUREN CHOI MD Feb 21, 2017 17:57
[2017-02-21 20:11] VITALS: BP 109/63; RESP 18
[2017-02-21] MEDS: traZODone 50 MG TAB PO SCH (20:35)
[2017-02-22] MEDS: morphine 2 MG INJ IV PRN ×4 (02:03→23:48)
[2017-02-22 02:05] VITALS: BP 104/62; RESP 16
[2017-02-22 06:32] LABS: ABNORMAL IP MESSAGE 1; BASOPHILS % 0.4 % (0.0-2.0); EOSINOPHILS # 0.1 10^3/ul (0.0-0.5); EOSINOPHILS % 1.6 % (0.0-7.0); HEMATOCRIT 24.9 % (37.0-47.0); HEMOGLOBIN 8.6 g/dl (12.0-16.0); LYMPHOCYTES # 1.1 10^3/ul (0.8-2.9); MEAN CORPUSCULAR HEMOGLOBIN 29.6 pg (29.0-33.0); MEAN CORPUSCULAR HGB CONC 34.5 g/dl (32.0-37.0); MEAN CORPUSCULAR VOLUME 85.6 fl (82.0-101.0); MEAN PLATELET VOLUME 9.2 fl (7.4-10.4); MONOCYTE # 0.4 10^3/ul (0.3-0.9); MONOCYTES % 8.6 % (0.0-11.0); NEUTROPHIL # 3.3 10^3/ul (1.6-7.5); PLATELET COUNT 62 10^3/UL (140-415); RED BLOOD COUNT 2.91 10^6/ul (4.20-5.40); RED CELL DISTRIBUTION WIDTH 21.3 % (11.5-14.5); WHITE BLOOD COUNT 4.9 10^3/ul (4.8-10.8)
[2017-02-22 06:39] LABS: POSITIVE DIFF @See below
[2017-02-22 06:49] LABS: BILIRUBIN,DIRECT 1.9 mg/dl (0.00-0.20); BILIRUBIN,INDIRECT 1.9 mg/dl (0-1.1); BILIRUBIN,TOTAL 3.8 mg/dl (0.2-1.3); TOTAL PROTEIN 6.6 g/dl (6.1-8.1)
[2017-02-22 08:00] VITALS: BP 95/56; RESP 18
[2017-02-22 08:29] LABS: CALCIUM 7.8 mg/dl (8.4-10.2); CREATININE 0.72 mg/dl (0.44-1.00); POTASSIUM 3.3 mmol/L (3.5-5.1)
[2017-02-22] MEDS: FUROSEMIDE 20 MG TAB PO SCH (08:41)
[2017-02-22 15:37] VITALS: BP 98/55; RESP 18
[2017-02-22] MEDS ORDERED: POTASSIUM CHLORIDE (SR) 20 MEQ TAB PO STA (17:10)
--- NOTE | 2017-02-22 17:13 | PN ---
Date/Time of Note Date/Time of Note DATE: 02/22/17 TIME: 17:09 Assessment/Plan VTE Prophylaxis VTE Prophylaxis Intervention: SCD's Lines/Catheters IV Catheter Type (from Nrs): Midline Assessment/Plan Assessment/Plan 47 yo F with pmhx HTN admitted for fatigue, chills, scleral icterus found to have evidence of hepatic dysfunction of unclear etiology (hyperbilirubinemia, transaminitis, coagulopathy). Liver profile continues to improve, biopsy results still pending #hepatic dysfunction: sp biopsy last week, results pending-->called path today. results should be available tomorrow (though I was told the same thing yesterday ) HIV negative, smAb negative. HepC EBV and CMV consistent with previous exposure. imaging without evidence of biliary obstruction. hep A cw previous exposure, hep B negative discharge pending liver biopsy results, continued improvement in liver profile Subjective 24 Hr Interval Summary Free Text/Dictation feels well Exam/Review of Systems Vital Signs Vitals Vital Signs Date Time Temp Pulse Resp B/P Pulse Ox O2 Delivery O2 Flow Rate FiO2 02/22/17 15:37 98.3 59 18 98/55 99 02/20/17 02:00 Room Air Intake and Output 02/21/17 02/21/17 02/22/17 14:59 22:59 06:59 Intake Total 1320 ml 720 ml Output Total 900 ml 600 ml Balance 420 ml 120 ml Exam nad no mrg lungs clear abd soft no jaundice Results Result Diagram: 02/22/17 0555 02/22/17 0555 Results 24 hrs Laboratory Tests Test 02/22/17 05:55 White Blood Count 4.9 Red Blood Count 2.91 L Hemoglobin 8.6 L Hematocrit 24.9 L Mean Corpuscular Volume 85.6 Mean Corpuscular Hemoglobin 29.6 Mean Corpuscular Hemoglobin Concent 34.5 Red Cell Distribution Width 21.3 H Platelet Count 62 L Mean Platelet Volume 9.2 Neutrophils % 67.0 Lymphocytes % 22.0 Monocytes % 8.6 Eosinophils % 1.6 Basophils % 0.4 Nucleated Red Blood Cells % 0.0 Neutrophils # 3.3 Lymphocytes # 1.1 Monocytes # 0.4 Eosinophils # 0.1 Basophils # 0.0 Nucleated Red Blood Cells # 0.0 Sodium Level 135 Potassium Level 3.3 L Chloride Level 105 Carbon Dioxide Level 24 Anion Gap 9 Blood Urea Nitrogen 12 Creatinine 0.72 Glucose Level 83 Calcium Level 7.8 L Total Bilirubin 3.8 H Direct Bilirubin 1.90 #H Indirect Bilirubin 1.9 H Aspartate Amino Transf (AST/SGOT) 38 Alanine Aminotransferase (ALT/SGPT) 41 Alkaline Phosphatase 208 H Total Protein 6.6 Albumin 2.0 L Medications Medications Current Medications Ondansetron HCl (Zofran Inj) 4 mg Q6H PRN IV NAUSEA AND/OR VOMITING; Start at 07:30 Acetaminophen (Tylenol Tab) 650 mg Q6H PRN PO PAIN LEVEL 1-3 OR FEVER Last administered on 02/20/17 02:52; Admin Dose 650 MG; Start 02/10/17 at 07:30 Ibuprofen (Motrin) 200 mg Q6H PRN PO PAIN OR TEMP ABOVE 38C Last administered on 02/13/17 09:35; Admin Dose 200 MG; Start 02/10/17 at 15:30; Status Future Hold Al Hydrox/Mg Hydrox/Simethicone (Mag-Al Plus) 30 ml Q6H PRN PO GASTROINTESTINAL UPSET Last administered on 02/20/17 12:20; Admin Dose 30 ML; Start 02/11/17 at 01:00 Trazodone HCl (Desyrel) 50 mg HS PO Last administered on 02/21/17 20:35; Admin Dose 50 MG; Start 02/11/17 at 21:00 Morphine Sulfate (morphine) 1 mg Q4H PRN IV pain Last administered on 08:53; Admin Dose 1 MG; Start 02/11/17 at 19:30 Furosemide (Lasix) 20 mg DAILY PO Last administered on 02/22/17 08:41; Admin Dose 20 MG; Start 02/17/17 at 11:00 LAUREN CHOI MD Feb 22, 2017 17:13
--- NOTE | 2017-02-22 18:41 | PN ---
Date/Time of Note Date/Time of Note DATE: 02/22/17 TIME: 18:37 Assessment/Plan VTE Prophylaxis VTE Prophylaxis Intervention: ambulation Lines/Catheters IV Catheter Type (from Nrs): Midline Assessment/Plan Chief Complaint/Hosp Course Assessment: Cholestatic jaundice CMV hepatitis/Ruled out MRCP negative Doubt drug-induced Pathology of liver biopsy pending Prolonged INR, concerning for significant liver dysfunction Postcholecystectomy 1996 High blood pressure Plan: Await liver bx Results pending S/p blood transfusions- Hgb now stable Will continue to monitor Further recommendations based on liver bx results Subjective: Course reviewed with nursing staff Patient interviewed and examined All labs, imaging and other results reviewed Patient appears comfortable. Awaiting for liver biopsy results. PHYSICAL EXAMINATION: GENERAL: Well developed, well nourished, alert & oriented x 3, in no acute distress SKIN: Jaundice. Otherwise no lesions, no stigmata chronic liver disease, no evidence of bleeding diathesis LYMPHATIC: No palpable lymphadenopathy. HEAD: Normocephalic, atraumatic, no tenderness. EYES: Pupils equal reactive to light and accommodation, full extraocular movements, sclera clear, non-icteric, no discharge. EARS/NOSE AND THROAT: Ears normal, nose normal, oropharynx normal, oral membranes well hydrated without lesions. NECK: Supple, no masses, thyroid normal, JVP within normal limits, carotids normal without bruits. CHEST: Inspection within normal limits. CARDIOVASCULAR: Heart: Regular rate and rhythm, no murmurs, gallops or rubs. Peripheral pulses present within normal limits, no cyanosis, clubbing or edemas. No pulsatile abdominal mass RESPIRATORY: Lungs clear to auscultation and percussion, no wheezing, no rubs GASTROINTESTINAL AND LIVER: Abdomen: Soft, tenderness in mid epigastric area and right upper quadrant, non-distended, no hernias, no masses, no Taylor sign, no guarding, no rebound tenderness, normoactive bowel sounds. Rectal: Deferred. GENITOURINARY: Female genitalia within normal limits. EXTREMITIES: BLE edema +1. Problems: Exam/Review of Systems Vital Signs Vitals Vital Signs Date Time Temp Pulse Resp B/P Pulse Ox O2 Delivery O2 Flow Rate FiO2 02/22/17 15:37 98.3 59 18 98/55 99 02/20/17 02:00 Room Air Intake and Output 02/21/17 02/21/1717 15:00 23:00 07:00 Intake Total 1320 ml 720 ml Output Total 900 ml 600 ml Balance 420 ml 120 ml Results Result Diagram: 02/22/17 0555 02/22/17 0555 Results 24 hrs Laboratory Tests Test 02/22/17 05:55 White Blood Count 4.9 Red Blood Count 2.91 L Hemoglobin 8.6 L Hematocrit 24.9 L Mean Corpuscular Volume 85.6 Mean Corpuscular Hemoglobin 29.6 Mean Corpuscular Hemoglobin Concent 34.5 Red Cell Distribution Width 21.3 H Platelet Count 62 L Mean Platelet Volume 9.2 Neutrophils % 67.0 Lymphocytes % 22.0 Monocytes % 8.6 Eosinophils % 1.6 Basophils % 0.4 Nucleated Red Blood Cells % 0.0 Neutrophils # 3.3 Lymphocytes # 1.1 Monocytes # 0.4 Eosinophils # 0.1 Basophils # 0.0 Nucleated Red Blood Cells # 0.0 Sodium Level 135 Potassium Level 3.3 L Chloride Level 105 Carbon Dioxide Level 24 Anion Gap 9 Blood Urea Nitrogen 12 Creatinine 0.72 Glucose Level 83 Calcium Level 7.8 L Total Bilirubin 3.8 H Direct Bilirubin 1.90 #H Indirect Bilirubin 1.9 H Aspartate Amino Transf (AST/SGOT) 38 Alanine Aminotransferase (ALT/SGPT) 41 Alkaline Phosphatase 208 H Total Protein 6.6 Albumin 2.0 L Medications Medications Current Medications Ondansetron HCl (Zofran Inj) 4 mg Q6H PRN IV NAUSEA AND/OR VOMITING; Start at 07:30 Acetaminophen (Tylenol Tab) 650 mg Q6H PRN PO PAIN LEVEL 1-3 OR FEVER Last administered on 02/20/17 02:52; Admin Dose 650 MG; Start 02/10/17 at 07:30 Ibuprofen (Motrin) 200 mg Q6H PRN PO PAIN OR TEMP ABOVE 38C Last administered on 02/13/17 09:35; Admin Dose 200 MG; Start 02/10/17 at 15:30; Status Future Hold Al Hydrox/Mg Hydrox/Simethicone (Mag-Al Plus) 30 ml Q6H PRN PO GASTROINTESTINAL UPSET Last administered on 02/20/17 12:20; Admin Dose 30 ML; Start 02/11/17 at 01:00 Trazodone HCl (Desyrel) 50 mg HS PO Last administered on 02/21/17 20:35; Admin Dose 50 MG; Start 02/11/17 at 21:00 Morphine Sulfate (morphine) 1 mg Q4H PRN IV pain Last administered on 17:59; Admin Dose 1 MG; Start 02/11/17 at 19:30 Furosemide (Lasix) 20 mg DAILY PO Last administered on 02/22/17 08:41; Admin Dose 20 MG; Start 02/17/17 at 11:00 UNA BRADSHAW MD Feb 22, 2017 18:41
[2017-02-22 19:53] VITALS: BP 98/59; RESP 20
[2017-02-22] MEDS: traZODone 50 MG TAB PO SCH (20:38)
[2017-02-23 05:51] LABS: ABNORMAL IP MESSAGE 1; BASOPHILS % 0.2 % (0.0-2.0); EOSINOPHILS # 0.1 10^3/ul (0.0-0.5); EOSINOPHILS % 2.4 % (0.0-7.0); HEMATOCRIT 25.5 % (37.0-47.0); HEMOGLOBIN 8.8 g/dl (12.0-16.0); LYMPHOCYTES # 0.9 10^3/ul (0.8-2.9); LYMPHOCYTES % 21.1 % (15.0-51.0); MEAN CORPUSCULAR HEMOGLOBIN 29.8 pg (29.0-33.0); MEAN CORPUSCULAR HGB CONC 34.5 g/dl (32.0-37.0); MEAN CORPUSCULAR VOLUME 86.4 fl (82.0-101.0); MEAN PLATELET VOLUME 9.2 fl (7.4-10.4); MONOCYTE # 0.4 10^3/ul (0.3-0.9); NEUTROPHIL # 2.8 10^3/ul (1.6-7.5); NEUTROPHILS % 65.8 % (39.0-77.0); PLATELET COUNT 68 10^3/UL (140-415); RED BLOOD COUNT 2.95 10^6/ul (4.20-5.40); RED CELL DISTRIBUTION WIDTH 21.8 % (11.5-14.5); WHITE BLOOD COUNT 4.2 10^3/ul (4.8-10.8)
[2017-02-23 06:12] LABS: POSITIVE DIFF @See below
[2017-02-23 06:17] LABS: CALCIUM 7.4 mg/dl (8.4-10.2); CREATININE 0.69 mg/dl (0.44-1.00); POTASSIUM 3.8 mmol/L (3.5-5.1)
[2017-02-23 06:21] LABS: ALBUMIN 2.1 g/dl (3.3-4.9); BILIRUBIN,INDIRECT 1.3 mg/dl (0-1.1); BILIRUBIN,TOTAL 2.3 mg/dl (0.2-1.3); TOTAL PROTEIN 6.5 g/dl (6.1-8.1)
[2017-02-23 07:49] VITALS: BP 98/57; RESP 16
[2017-02-23] MEDS: FUROSEMIDE 20 MG TAB PO SCH (08:24)
[2017-02-23] MEDS: morphine 2 MG INJ IV PRN (13:20)
[2017-02-23 13:28] VITALS: BP 98/58; RESP 16
[2017-02-23] MEDS: AL HYDROX/MG HYDROX/SIMETH 30 ML CUP PO PRN ×2 (16:27→22:03)
--- NOTE | 2017-02-23 16:58 | PN ---
Date/Time of Note Date/Time of Note DATE: 02/23/17 TIME: 16:44 Assessment/Plan VTE Prophylaxis VTE Prophylaxis Intervention: ambulation Lines/Catheters IV Catheter Type (from Nrs): Mid Line Assessment/Plan Chief Complaint/Hosp Course Assessment: Cholestatic jaundice CMV hepatitis/Ruled out MRCP negative Doubt drug-induced Epigastric pain/Gastritis Prolonged INR, concerning for significant liver dysfunction Postcholecystectomy 1996 High blood pressure Plan: Start Protonix for epigastric pain S/p liver bx Results pending S/p blood transfusions- Hgb now stable Will continue to monitor Further recommendations based on liver bx results Pt seen in collaboration with Dr. Toledo Subjective: Course reviewed with nursing staff Patient interviewed and examined All labs, imaging and other results reviewed Pt c/o epigastric pain right after meals. Patient also has pain in the back of her neck. Awaiting for liver biopsy results. PHYSICAL EXAMINATION: GENERAL: Well developed, well nourished, alert & oriented x 3, in no acute distress SKIN: Jaundice. Otherwise no lesions, no stigmata chronic liver disease, no evidence of bleeding diathesis LYMPHATIC: No palpable lymphadenopathy. HEAD: Normocephalic, atraumatic, no tenderness. EYES: Pupils equal reactive to light and accommodation, full extraocular movements, sclera clear, non-icteric, no discharge. EARS/NOSE AND THROAT: Ears normal, nose normal, oropharynx normal, oral membranes well hydrated without lesions. NECK: Supple, no masses, thyroid normal, JVP within normal limits, carotids normal without bruits. CHEST: Inspection within normal limits. CARDIOVASCULAR: Heart: Regular rate and rhythm, no murmurs, gallops or rubs. Peripheral pulses present within normal limits, no cyanosis, clubbing or edemas. No pulsatile abdominal mass RESPIRATORY: Lungs clear to auscultation and percussion, no wheezing, no rubs GASTROINTESTINAL AND LIVER: Abdomen: Soft, tenderness in mid epigastric area and , non-distended, no hernias, no masses, no Taylor sign, no guarding, no rebound tenderness, normoactive bowel sounds. Rectal: Deferred. GENITOURINARY: Female genitalia within normal limits. EXTREMITIES: BLE edema +1. Problems: Exam/Review of Systems Vital Signs Vitals Vital Signs Date Time Temp Pulse Resp B/P Pulse Ox O2 Delivery O2 Flow Rate FiO2 02/23/17 13:28 97.9 69 16 98/58 100 02/20/17 02:00 Room Air Intake and Output 02/22/17 02/22/17 02/23/17 14:59 22:59 06:59 Intake Total 880 ml 480 ml Output Total 700 ml Balance 180 ml 480 ml Results Result Diagram: 02/23/1727 02/23/17526 Results 24 hrs Laboratory Tests Test 02/23/17 05:27 White Blood Count 4.2 L Red Blood Count 2.95 L Hemoglobin 8.8 L Hematocrit 25.5 L Mean Corpuscular Volume 86.4 Mean Corpuscular Hemoglobin 29.8 Mean Corpuscular Hemoglobin Concent 34.5 Red Cell Distribution Width 21.8 H Platelet Count 68 L Mean Platelet Volume 9.2 Neutrophils % 65.8 Lymphocytes % 21.1 Monocytes % 10.0 Eosinophils % 2.4 Basophils % 0.2 Nucleated Red Blood Cells % 0.0 Neutrophils # 2.8 Lymphocytes # 0.9 Monocytes # 0.4 Eosinophils # 0.1 Basophils # 0.0 Nucleated Red Blood Cells # 0.0 Sodium Level 138 Potassium Level 3.8 Chloride Level 108 Carbon Dioxide Level 24 Anion Gap 10 Blood Urea Nitrogen 11 Creatinine 0.69 Glucose Level 84 Calcium Level 7.4 L Total Bilirubin 2.3 H Direct Bilirubin 1.00 #H Indirect Bilirubin 1.3 H Aspartate Amino Transf (AST/SGOT) 35 Alanine Aminotransferase (ALT/SGPT) 41 Alkaline Phosphatase 220 H Total Protein 6.5 Albumin 2.1 L Medications Medications Current Medications Ondansetron HCl (Zofran Inj) 4 mg Q6H PRN IV NAUSEA AND/OR VOMITING; Start at 07:30 Acetaminophen (Tylenol Tab) 650 mg Q6H PRN PO PAIN LEVEL 1-3 OR FEVER Last administered on 02/20/17 02:52; Admin Dose 650 MG; Start 02/10/17 at 07:30 Ibuprofen (Motrin) 200 mg Q6H PRN PO PAIN OR TEMP ABOVE 38C Last administered on 02/13/17 09:35; Admin Dose 200 MG; Start 02/10/17 at 15:30; Status Future Hold Al Hydrox/Mg Hydrox/Simethicone (Mag-Al Plus) 30 ml Q6H PRN PO GASTROINTESTINAL UPSET Last administered on 02/23/17 16:27; Admin Dose 30 ML; Start 02/11/17 at 01:00 Trazodone HCl (Desyrel) 50 mg HS PO Last administered on 02/22/17 20:38; Admin Dose 50 MG; Start 02/11/17 at 21:00 Morphine Sulfate (morphine) 1 mg Q4H PRN IV pain Last administered on 13:20; Admin Dose 1 MG; Start 02/11/17 at 19:30 Furosemide (Lasix) 20 mg DAILY PO Last administered on 02/23/17 08:24; Admin Dose 20 MG; Start 02/17/17 at 11:00 JIM TAYLOR NP Feb 23, 2017 16:57
--- NOTE | 2017-02-23 17:18 | PN ---
Date/Time of Note Date/Time of Note DATE: 02/23/17 TIME: 17:17 Assessment/Plan VTE Prophylaxis VTE Prophylaxis Intervention: SCD's Lines/Catheters IV Catheter Type (from Nrs): Mid Line Assessment/Plan Assessment/Plan 47 yo F with pmhx HTN admitted for fatigue, chills, scleral icterus found to have evidence of hepatic dysfunction of unclear etiology (hyperbilirubinemia, transaminitis, coagulopathy). Liver profile continues to improve, biopsy results still pending #hepatic dysfunction: sp biopsy last week, results pending-->called path today. results should be available tomorrow (though I was told the same thing yesterday ) HIV negative, smAb negative. HepC EBV and CMV consistent with previous exposure. imaging without evidence of biliary obstruction. hep A cw previous exposure, hep B negative discharge pending liver biopsy results, continued improvement in liver profile Subjective 24 Hr Interval Summary Free Text/Dictation no complaints Exam/Review of Systems Vital Signs Vitals Vital Signs Date Time Temp Pulse Resp B/P Pulse Ox O2 Delivery O2 Flow Rate FiO2 02/23/17 13:28 97.9 69 16 98/58 100 02/20/17 02:00 Room Air Intake and Output 02/22/17 02/22/17 02/23/17 15:00 23:00 07:00 Intake Total 880 ml 480 ml Output Total 700 ml Balance 180 ml 480 ml Exam nad no mrg lungs clear abd soft no rashes Results Result Diagram: 02/23/17 0527 02/23/17 0527 Results 24 hrs Laboratory Tests Test 02/23/17 05:27 White Blood Count 4.2 L Red Blood Count 2.95 L Hemoglobin 8.8 L Hematocrit 25.5 L Mean Corpuscular Volume 86.4 Mean Corpuscular Hemoglobin 29.8 Mean Corpuscular Hemoglobin Concent 34.5 Red Cell Distribution Width 21.8 H Platelet Count 68 L Mean Platelet Volume 9.2 Neutrophils % 65.8 Lymphocytes % 21.1 Monocytes % 10.0 Eosinophils % 2.4 Basophils % 0.2 Nucleated Red Blood Cells % 0.0 Neutrophils # 2.8 Lymphocytes # 0.9 Monocytes # 0.4 Eosinophils # 0.1 Basophils # 0.0 Nucleated Red Blood Cells # 0.0 Sodium Level 138 Potassium Level 3.8 Chloride Level 108 Carbon Dioxide Level 24 Anion Gap 10 Blood Urea Nitrogen 11 Creatinine 0.69 Glucose Level 84 Calcium Level 7.4 L Total Bilirubin 2.3 H Direct Bilirubin 1.00 #H Indirect Bilirubin 1.3 H Aspartate Amino Transf (AST/SGOT) 35 Alanine Aminotransferase (ALT/SGPT) 41 Alkaline Phosphatase 220 H Total Protein 6.5 Albumin 2.1 L Medications Medications Current Medications Ondansetron HCl (Zofran Inj) 4 mg Q6H PRN IV NAUSEA AND/OR VOMITING; Start at 07:30 Acetaminophen (Tylenol Tab) 650 mg Q6H PRN PO PAIN LEVEL 1-3 OR FEVER Last administered on 02/20/17 02:52; Admin Dose 650 MG; Start 02/10/17 at 07:30 Ibuprofen (Motrin) 200 mg Q6H PRN PO PAIN OR TEMP ABOVE 38C Last administered on 02/13/17 09:35; Admin Dose 200 MG; Start 02/10/17 at 15:30; Status Future Hold Al Hydrox/Mg Hydrox/Simethicone (Mag-Al Plus) 30 ml Q6H PRN PO GASTROINTESTINAL UPSET Last administered on 02/23/17 16:27; Admin Dose 30 ML; Start 02/11/17 at 01:00 Trazodone HCl (Desyrel) 50 mg HS PO Last administered on 02/22/17 20:38; Admin Dose 50 MG; Start 02/11/17 at 21:00 Morphine Sulfate (morphine) 1 mg Q4H PRN IV pain Last administered on 13:20; Admin Dose 1 MG; Start 02/11/17 at 19:30 Furosemide (Lasix) 20 mg DAILY PO Last administered on 02/23/17 08:24; Admin Dose 20 MG; Start 02/17/17 at 11:00 Pantoprazole (Protonix Tab) 40 mg DAILY@06 PO ; Start 02/24/17 at 06:00; Status LAUREN AGUILAR MD Feb 23, 2017 17:18
[2017-02-23 20:00] VITALS: BP 105/61; RESP 20
[2017-02-23] MEDS: HYDROCODONE/APAP (5/325) TAB PO PRN (20:38)
[2017-02-23] MEDS: traZODone 50 MG TAB PO SCH (20:38)
[2017-02-24] MEDS: HYDROCODONE/APAP (5/325) TAB PO PRN ×3 (00:44→16:00)
[2017-02-24 02:00] VITALS: BP 96/54; RESP 20
[2017-02-24] MEDS ORDERED: PANTOPRAZOLE (EC) 40 MG TAB PO SCH (06:00)
[2017-02-24 06:35] LABS: ABNORMAL IP MESSAGE 1; BASOPHILS % 0.3 % (0.0-2.0); EOSINOPHILS # 0.1 10^3/ul (0.0-0.5); EOSINOPHILS % 2.3 % (0.0-7.0); HEMATOCRIT 24.8 % (37.0-47.0); HEMOGLOBIN 8.4 g/dl (12.0-16.0); LYMPHOCYTES # 0.9 10^3/ul (0.8-2.9); LYMPHOCYTES % 28.6 % (15.0-51.0); MEAN CORPUSCULAR HEMOGLOBIN 29.8 pg (29.0-33.0); MEAN CORPUSCULAR HGB CONC 33.9 g/dl (32.0-37.0); MEAN CORPUSCULAR VOLUME 87.9 fl (82.0-101.0); MEAN PLATELET VOLUME 9.6 fl (7.4-10.4); MONOCYTE # 0.3 10^3/ul (0.3-0.9); MONOCYTES % 10.5 % (0.0-11.0); NEUTROPHIL # 1.8 10^3/ul (1.6-7.5); NEUTROPHILS % 57.6 % (39.0-77.0); PLATELET COUNT 59 10^3/UL (140-415); RED BLOOD COUNT 2.82 10^6/ul (4.20-5.40)
[2017-02-24 06:45] LABS: POSITIVE DIFF @See below
[2017-02-24 07:06] LABS: ALBUMIN/GLOBULIN RATIO 0.44; BILIRUBIN,DIRECT 0.5 mg/dl (0.00-0.20); BILIRUBIN,INDIRECT 1.5 mg/dl (0-1.1); CALCIUM 7.4 mg/dl (8.4-10.2); CREATININE 0.72 mg/dl (0.44-1.00); POTASSIUM 3.3 mmol/L (3.5-5.1); TOTAL PROTEIN 6.5 g/dl (6.1-8.1)
[2017-02-24 07:46] VITALS: BP 91/58; RESP 18
--- NOTE | 2017-02-24 13:12 | PN ---
Date/Time of Note Date/Time of Note DATE: 02/24/17 TIME: 13:10 Assessment/Plan VTE Prophylaxis VTE Prophylaxis Intervention: SCD's Lines/Catheters IV Catheter Type (from Nrs): Mid Line Assessment/Plan Chief Complaint/Hosp Course Assessment: Cholestatic jaundice Rule out CMV hepatitis Rule out biliary obstruction Doubt drug-induced Prolonged INR, concerning for significant liver dysfunction Postcholecystectomy 1997 High blood pressure Plan: Liver bx: PRELIMINARY RESULTS Liver, biopsy: -- Changes compatible with chronic cholestasis. (Please see comment). COMMENT: The biopsy shows changes compatible with chronic cholestasis without bile plugs or bile infarction. The features raises the possibility of a primary biliary cholangiolitis. Drug induced liver disease should also be considered. This case is forwarded to Dr. Deepak Bailey of [facility] Pathology for his review. A final report will follow. This case was also reviewed by Dr. Nathaniel Sanchez who concurs. Ok to D/C from GI point of view f/u with GI 2-4 weeks Pt seen in collaboration with Dr. Toledo Subjective: Course reviewed with nursing staff Patient interviewed and examined All labs, imaging and other results reviewed Pt feels great no c/o abd pain nausea or vomiting. Reviewed preliminary pathology, ok to D/C home from GI point of view Pt to follow up with GI in 2-4 weeks. PHYSICAL EXAMINATION: GENERAL: Well developed, well nourished, alert & oriented x 3, in no acute distress SKIN: Jaundice. Otherwise no lesions, no stigmata chronic liver disease, no evidence of bleeding diathesis LYMPHATIC: No palpable lymphadenopathy. HEAD: Normocephalic, atraumatic, no tenderness. EYES: Pupils equal reactive to light and accommodation, full extraocular movements, sclera clear, non-icteric, no discharge. EARS/NOSE AND THROAT: Ears normal, nose normal, oropharynx normal, oral membranes well hydrated without lesions. NECK: Supple, no masses, thyroid normal, JVP within normal limits, carotids normal without bruits. CHEST: Inspection within normal limits. CARDIOVASCULAR: Heart: Regular rate and rhythm, no murmurs, gallops or rubs. Peripheral pulses present within normal limits, no cyanosis, clubbing or edemas. No pulsatile abdominal mass RESPIRATORY: Lungs clear to auscultation and percussion, no wheezing, no rubs GASTROINTESTINAL AND LIVER: Abdomen: Soft, mild tenderness in the epigastrium and right upper quadrant, non-distended, no hernias, no masses, no Taylor sign, no guarding, no rebound tenderness, normoactive bowel sounds. Rectal: Deferred. GENITOURINARY: Female genitalia within normal limits. EXTREMITIES: BLE edema- improved Problems: Exam/Review of Systems Vital Signs Vitals Vital Signs Date Time Temp Pulse Resp B/P Pulse Ox O2 Delivery O2 Flow Rate FiO2 02/24/17 07:46 98.2 65 18 91/58 99 Intake and Output 02/23/17 02/23/17 02/24/17 15:00 23:00 07:00 Intake Total 1480 ml 700 ml Output Total 1700 ml Balance -220 ml 700 ml Results Result Diagram: 02/24/17 0534 02/24/17 0534 Results 24 hrs Laboratory Tests Test 02/24/17 05:34 White Blood Count 3.0 #L Red Blood Count 2.82 L Hemoglobin 8.4 L Hematocrit 24.8 L Mean Corpuscular Volume 87.9 Mean Corpuscular Hemoglobin 29.8 Mean Corpuscular Hemoglobin Concent 33.9 Red Cell Distribution Width 22.0 H Platelet Count 59 L Mean Platelet Volume 9.6 Neutrophils % 57.6 Lymphocytes % 28.6 Monocytes % 10.5 Eosinophils % 2.3 Basophils % 0.3 Nucleated Red Blood Cells % 0.0 Neutrophils # 1.8 Lymphocytes # 0.9 Monocytes # 0.3 Eosinophils # 0.1 Basophils # 0.0 Nucleated Red Blood Cells # 0.0 Sodium Level 137 Potassium Level 3.3 L Chloride Level 106 Carbon Dioxide Level 26 Anion Gap 8 Blood Urea Nitrogen 9 Creatinine 0.72 Glucose Level 81 Calcium Level 7.4 L Total Bilirubin 2.0 H Direct Bilirubin 0.50 #H Indirect Bilirubin 1.5 H Aspartate Amino Transf (AST/SGOT) 40 Alanine Aminotransferase (ALT/SGPT) 41 Alkaline Phosphatase 228 H Total Protein 6.5 Albumin 2.0 L Globulin 4.50 H Albumin/Globulin Ratio 0.44 Medications Medications Current Medications Ondansetron HCl (Zofran Inj) 4 mg Q6H PRN IV NAUSEA AND/OR VOMITING; Start at 07:30 Acetaminophen (Tylenol Tab) 650 mg Q6H PRN PO PAIN LEVEL 1-3 OR FEVER Last administered on 02/20/17t 02:52; Admin Dose 650 MG; Start 02/10/17 at 07:30 Ibuprofen (Motrin) 200 mg Q6H PRN PO PAIN OR TEMP ABOVE 38C Last administered on 02/13/17 09:35; Admin Dose 200 MG; Start 02/10/17 at 15:30; Status Future Hold Al Hydrox/Mg Hydrox/Simethicone (Mag-Al Plus) 30 ml Q6H PRN PO GASTROINTESTINAL UPSET Last administered on 02/23/17 22:03; Admin Dose 30 ML; Start 02/11/17 at 01:00 Trazodone HCl (Desyrel) 50 mg HS PO Last administered on 02/23/17 20:38; Admin Dose 50 MG; Start 02/11/17 at 21:00 Pantoprazole (Protonix Tab) 40 mg DAILY@06 PO Last administered on 02/24/17 05 :45; Admin Dose 40 MG; Start 02/24/17 at 06:00 Acetaminophen/ Hydrocodone Bitart (Sharon (5/325)) 1 tab Q4H PRN PO pain Last administered on 02/24/17 05:45; Admin Dose 1 TAB; Start 02/23/17 at 17:30 SHIREEN TREVIZO Feb 24, 2017 13:12
[2017-02-24 14:31] VITALS: BP 104/61; RESP 18
[2017-02-24] MEDS ORDERED: PANT40TA4 PO ×2 (15:08→15:13)
[2017-02-24] MEDS ORDERED: IBUP200C PO (15:12)
--- NOTE | 2017-02-24 15:15 | PDOCDIS ---
Discharge Instructions CONDITION Patient Condition: Good HOME CARE INSTRUCTIONS: Special Diet: JARRED FOLLOW UP/APPOINTMENTS Follow-up Plan Follow up with Dr Toledo the stomach/liver doctor in 2-4 weeks to further review your liver biopsy results Scooter un seguimiento con el Dr. Toledo el mdico del estmago / hgado en 2-4 semanas para revisar ms a fondo los resultados de ibarra biopsia heptica Office Address [address] [place] [address] [address] [place] [address] Office LAUREN CHOI MD Feb 24, 2017 15:15
--- NOTE | 2017-02-24 15:18 | DS ---
Date/Time of Note Date/Time of Note DATE: 02/24/17 TIME: 15:15 Discharge Summary Admission/Discharge Info Admit Date/Time Feb 10, 2017 at 06:25 Discharge Date/Time Discharge Diagnosis hepatic dysfunction 2/2 Primary biliary cholangitis v drug toxicity, splenomegaly Patient Condition: Good Consults GI Procedures 02.10 liver US IMPRESSION: Fatty infiltration of the liver.. Status post cholecystectomy. 02.12 MRI abdomen IMPRESSION: 1. Limited study due to artifact as described above. 2. Splenomegaly. 3. Mild ascites and subcutaneous adipose tissue edema. 4. Status post cholecystectomy. 5. Grossly normal appearance of the bile ducts. 02.14 BL LE duplex: no DVT 02.18: US guided liver biopsy PRELIMINARY MICROSCOPIC DIAGNOSIS: Liver, biopsy: -- Changes compatible with chronic cholestasis. (Please see comment). 02.20 abd US IMPRESSION: No evidence of upper abdominal hematoma or hemoperitoneum on limited abdominal ultrasound. Post cholecystectomy. Splenomegaly. LABS AMA negative, Anti Sm Ab negative CMV IgG+ and IgM- PCR UD; EBV IgG+ and IgM-, HSV1 and 2 IgM- Hep A IgM neg Ab +, Hep B sAg- sAb- cAb-, Hep C Ab+ VL UD AFP 1.15, alpha 1 antitrypsin wnl FOBT negative Hx of Present Illness CC: chills, generalized feeling unwell x 3 weeks HPI 47 yo F with pmhx HTN transferred from [place] where she presented with feeling unwell x 3 weeks and 2 days of scleral icterus. Pt reports that for the past 3 weeks she has been fatigued, has been having chills, decreased appetite, nausea. No fever. no rashes. no leg swelling. Does not recall ever previously being diagnosed with HepC. Also c/o dysuria. Soc Hx: pt denies any hx of IVDU. only previous blood transfusion was 2 years ago in the [place] SurgHx: unknown previous abd surgery (pt states "vesicle" surgery) Hospital Course 47 yo F with pmhx HTN admitted for fatigue, chills, scleral icterus found to have evidence of hepatic dysfunction of unclear etiology (hyperbilirubinemia, transaminitis, coagulopathy). Liver profile improved gradually without intervention. Biopsy results with PBC v drug induced. Extensive workup with blood tests including assessments for viral processes and autoimmune were nondiagnostic. Scleral icterus resolved and pt is discharged to follow up with GI in 2-4 weeks once pathology results are finalized. Splenomegaly seen on imaging likely 2/2 underlying liver pathology though pt advised to dw PCP. Pt started on PPI for c/ o dyspepsia/GERD. Pt advised to avoid EtOH and APAP until seen by GI. Home Meds Active Scripts Pantoprazole* (Pantoprazole*) 40 Mg Tablet., 40 MG PO AC BREAKFAST for 30 Days , #30 TAB Prov:LAUREN CHOI MD 02/24/17 Ibuprofen* (Ibuprofen*) 200 Mg Capsule, 200 MG PO Q6 Y for PAIN for 30 Days, # 30 CAP please take with food or milk Prov:LAUREN CHOI MD 02/24/17 Follow-up Plan Follow up with Dr Toledo the stomach/liver doctor in 2-4 weeks to further review your liver biopsy results Scooter un seguimiento con el Dr. Toledo el mdico del estmago / hgado en 2-4 semanas para revisar ms a fondo los resultados de ibarra biopsia heptica Office Address [address] [place] [address] [address] [place] [address] Office Primary Care Provider Not On Staff Doctor Time spent on discharge: > 30 minutes Pending Labs Laboratory Tests Test 02/24/17 05:34 White Blood Count 3.010^3/ul (4.8-10.8) Red Blood Count 2.8210^6/ul (4.20-5.40) Hemoglobin 8.4g/dl (12.0-16.0) Hematocrit 24.8% (37.0-47.0) Mean Corpuscular Volume 87.9fl (82.0-101.0) Mean Corpuscular Hemoglobin 29.8pg (29.0-33.0) Mean Corpuscular Hemoglobin Concent 33.9g/dl (32.0-37.0) Red Cell Distribution Width 22.0% (11.5-14.5) Platelet Count 5910^3/UL (140-415) Mean Platelet Volume 9.6fl (7.4-10.4) Neutrophils % 57.6% (39.0-77.0) Lymphocytes % 28.6% (15.0-51.0) Monocytes % 10.5% (0.0-11.0) Eosinophils % 2.3% (0.0-7.0) Basophils % 0.3% (0.0-2.0) Nucleated Red Blood Cells % 0.0/100WBC (0.0-0.0) Neutrophils # 1.810^3/ul (1.6-7.5) Lymphocytes # 0.910^3/ul (0.8-2.9) Monocytes # 0.310^3/ul (0.3-0.9) Eosinophils # 0.110^3/ul (0.0-0.5) Basophils # 0.010^3/ul (0.0-0.1) Nucleated Red Blood Cells # 0.010^3/ul (0.0-0.0) Sodium Level 137mmol/L (135-144) Potassium Level 3.3mmol/L (3.5-5.1) Chloride Level 106mmol/L (97-110) Carbon Dioxide Level 26mmol/L (21-31) Anion Gap 8 (8-16) Blood Urea Nitrogen 9mg/dl (7-20) Creatinine 0.72mg/dl (0.44-1.00) Glucose Level 81mg/dl (70-220) Calcium Level 7.4mg/dl (8.4-10.2) Total Bilirubin 2.0mg/dl (0.2-1.3) Direct Bilirubin 0.50mg/dl (0.00-0.20) Indirect Bilirubin 1.5mg/dl (0-1.1) Aspartate Amino Transf (AST/SGOT) 40IU/L (15-46) Alanine Aminotransferase (ALT/SGPT) 41IU/L (13-69) Alkaline Phosphatase 228IU/L (42-121) Total Protein 6.5g/dl (6.1-8.1) Albumin 2.0g/dl (3.3-4.9) Globulin 4.50g/dl (1.3-3.2) Albumin/Globulin Ratio 0.44 Copies To: CC: UNA TOLEDO MD, ELLEN MD Feb 24, 2017 15:18
== END 2017-02-24 19:00 | disposition home or self-care (01) | DRG 441 ==
LOC: UNDOADMIN 06:04 → REC 06:04 → TEL 06:25 → MS2 13:17
PROVIDERS: ADMIT Family Medicine; ATTEND Family Medicine
PROC: 30233K1 Transfusion of Nonautologous Frozen Plasma into Peripheral Vein, Percutaneous Approach (ICD-10-PCS; 2017-02-17)
PROC: 30233N1 Transfusion of Nonautologous Red Blood Cells into Peripheral Vein, Percutaneous Approach (ICD-10-PCS; 2017-02-17)
PROC: 0FB03ZX Excision of Liver, Percutaneous Approach, Diagnostic (ICD-10-PCS; principal; 2017-02-18)
DX: R17 Unspecified jaundice (principal); K72.00 Acute and subacute hepatic failure without coma; N17.9 Acute kidney failure, unspecified; E87.1 Hypo-osmolality and hyponatremia; K75.89 Other specified inflammatory liver diseases; I10 Essential (primary) hypertension; R79.1 Abnormal coagulation profile; M79.89 Other specified soft tissue disorders
CPT/HCPCS: 36430; 71020; 74181; 76700; 76705; 76942; 80048; 80053; 80076; 80306; 81001; 81003; 82103; 82105; 82140; 82270; 82977; 83010; 83036; 83540; 83605; 83615; 83735; 84100; 84155; 84443; 85014; 85018; 85025; 85610; 85730; 86255; 86308; 86644; 86664; 86703; 86704; 86706; 86708; 86709; 86803; 86850; 86900; 86901; 86920; 87040; 87086; 87340; 87496; 88307; 88313; 93970; J1940; J2270; J3475; J3480; J7030; J7040; P9016; P9059; Q9958

== ENCOUNTER 2017-03-02 14:36 | Outpatient (CLI) | payer OTHER ==
[~2017-03-02] VITALS: Ht 165.1 cm; Wt 69.5 kg
[~2017-03-02 14:36] MED LIST: IBUP200C PO; PANT40TA4 PO
[2017-03-02 14:52] VITALS: Ht 165.1 cm; Wt 69.5 kg
[2017-03-02 14:53] VITALS: BP 120/71; PULSE 74; RESP 16
--- NOTE | 2017-03-02 15:32 | PN ---
Date/Time of Note Date/Time of Note DATE: 03/02/17 TIME: 15:27 Outpatient Progress Note Chief Complaint Jaundice/anemia/renal insufficiency/abnormal LFT HPI Jaundice/patient was recently admitted with jaundice, patient bilirubin was total 30+, now came down to 1.5, patient still has jaundice, slightly more than when she was discharged from the hospital, Anemia/hematemesis or melena, no bleeding, slight fatigue, Renal insufficiency/patient has renal insufficiency in the hospital, patient much improved, Abnormal LFTs/patient has abnormal LFT, elevated bilirubin, and liver function test, patient also has minimal right upper quadrant discomfort, Review of Systems Const: No Fever, no chills, no Wt. loss, no Fatigue, slightly poor appetite, no diaphoresis. Eyes: No pain, no discharge, no redness, no visual change, no foreign body. Jaundice present, ENT: No pain, no bleeding, no congestion, no sore throat, no dysphagia, no discharge or rhinitis. Lymph: No adenopathy, no tender nodes, no lymphedema. Resp: No SOB, no cough, no sputum, no wheezing, no chest pain. CV: No chest pain, no palpitaions, no EAGLE, no PND, no edema. GI: Normal appetite, right upper quadrant pain, no nausea, no vomiting, no diarrhea, no blood, no constipation. : No frequency, no urgency, no dysuria, no hematuria, no flank pain, no discharge, no bleeding. Musc:, no back pain, no neck pain, no knee pain, no restricted ROM. Skin: No rash, no skin lesions, no erythema, no laceration, no bruising, no pruritus. Neuro: No SANZ, no dizziness, no syncope, no seizure, no focal-weakness. Endo: No polyuria, no polydypsia, no dry-skin, no temp-intolerance. Psych: No hallucinations, no depression, no anxiety, no suicidal ideation. Ext: No edema, no pain, no ulcer, no weakness. Physical Exam Vital Signs Date Time Temp Pulse Resp B/P Pulse Ox O2 Delivery O2 Flow Rate FiO2 03/02/17 14:53 98.0 74 16 120/71 99 Room Air General Appearance: A 47 year-old female who appears well-developed, well- nourished, in no acute distress. HEENT: Head normocephalic, atraumatic. Pupils equal, round, reactive to light and accommodate. Sclerae are jaundice. Nasal turbinates pink without erythema or nasal discharge. Mucous membranes pink and moist without lesions. Oropharynx clear without any exudate or discharge. NECK: Supple. Trachea midline, No thyromegaly, No cervical lymphadenopathy, No mass, No carotid bruits, No JVD, Carotid pulses 2+ bilaterally. PULMONARY: Clear to auscultaion bilaterally, No retractions, Chest expansion symmetric bilaterally, no rales, no ronchi, no dulness on percussion. CARDIAC: Normal SI and S2, Regular rate and rythm, no murmur, gallop, or rub. GASTROINTESTINAL: Abdomen is soft, right upper quadrant slight tenderness,, Non Rigid, No distention, Positive bowel sounds x4 quadrants, Liver normal. SKIN: Warm, dry, no rash, no bruise, no echmosis. EXTREMITIES: Bilateral lower extremities normal, no edema, no phlabitus, pulse palpable, no contracture. MUSCULOSKELETAL: Spine Normal, Non-tender, Normal range of motion, No swelling, no deformity, no clubbing, or cyanosis, the patient has no edema to bilateral lower extremities, dorsalis pedis pulses palpable bilaterally. NEUROLOGIC: The patient is awake, alert, oriented, responding to yes/no questions appropriately, moving all extremities, cranial nerve intact, normal strenght, normal power, normal coordination, normal gait. Allergies Coded Allergies: No Known Allergy (Unverified , 02/10/17) PMH Jaundice/renal insufficiency/anemia/abnormal LFTs/splenomegaly/mild ascites/ status post cholecystectomy/ Social Hx No smoking, no drinking, Family Hx Noncontributory Assessment/Plan Impression Jaundice/anemia/renal insufficiency/abnormal LFT Plan Patient education done about her condition, patient bilirubin has significantly dropped, still patients I jaundice slightly more than 1.5, patient also has anemia, patient hemoglobin 8.4, patient feeling slightly weak, patient is not taking any medication Ferrous sulfate 325 3 times daily, CBC and BMP, Patient to follow with the primary care physician in GI, Patient very high risk for repeated admission,, Medications Home Meds Active Scripts Pantoprazole* (Pantoprazole*) 40 Mg Tablet., 40 MG PO AC BREAKFAST for 30 Days , #30 TAB Prov:LAUREN CHOI MD 02/24/17 Ibuprofen* (Ibuprofen*) 200 Mg Capsule, 200 MG PO Q6 Y for PAIN for 30 Days, # 30 CAP please take with food or milk Prov:LAUREN CHOI MD 02/24/17 DAVON HAM MD Mar 02, 2017 15:32
== END 2017-03-02 15:48 | disposition home or self-care (01) ==
LOC: DCC 14:36
PROVIDERS: ATTEND Internal Medicine
DX: R17 Unspecified jaundice (principal); D64.9 Anemia, unspecified; N28.9 Disorder of kidney and ureter, unspecified; R79.89 Other specified abnormal findings of blood chemistry
CPT/HCPCS: G0463

== ENCOUNTER 2017-03-09 11:29 | Outpatient (CLI) | payer OTHER ==
[~2017-03-09] VITALS: Ht 165.1 cm; Wt 67.7 kg
[2017-03-09 11:44] VITALS: Ht 165.1 cm; Wt 67.7 kg
[2017-03-09 11:45] VITALS: BP 139/68; PULSE 68; RESP 16
--- NOTE | 2017-03-09 12:28 | PN ---
Date/Time of Note Date/Time of Note DATE: 03/09/17 TIME: 12:23 Outpatient Progress Note Chief Complaint Jaundice/anemia/abnormal LFT HPI Jaundice/patient was recently admitted to the hospital with a bilirubin of 30, came down to 1.5/2, and now back to 4.9, patient still has some abdominal discomfort, No fever chill, no pruritus, Anemia/still feels weakness and tiredness, no bleeding, no bruises, Abnormal LFTs/patient has abnormal LFT, slight abdominal discomfort, Review of Systems Const: No Fever, no chills, no Wt. loss, no Fatigue, normal appetite, no diaphoresis. Eyes: No pain, no discharge, no redness, no visual change, patient has slight jaundice ENT: No pain, no bleeding, no congestion, no sore throat, no dysphagia, no discharge or rhinitis. Lymph: No adenopathy, no tender nodes, no lymphedema. Resp: No SOB, no cough, no sputum, no wheezing, no chest pain. CV: No chest pain, no palpitaions, no EAGLE, no PND, no edema. GI: Normal appetite, right upper quadrant and epigastric mild pain, no nausea, no vomiting, no diarrhea, no blood, no constipation. : No frequency, no urgency, no dysuria, no hematuria, no flank pain, no discharge, no bleeding. Musc: no back pain, no neck pain, no knee pain, no restricted ROM. Skin: No rash, no skin lesions, no erythema, no laceration, no bruising, no pruritus. Neuro: No SANZ, no dizziness, no syncope, no seizure, no focal-weakness. Endo: No polyuria, no polydypsia, no dry-skin, no temp-intolerance. Psych: No hallucinations, no depression, no anxiety, no suicidal ideation. Ext: No edema, no pain, no ulcer, no weakness. Physical Exam Vital Signs Date Time Temp Pulse Resp B/P Pulse Ox O2 Delivery O2 Flow Rate FiO2 03/09/17 11:45 98.1 68 16 139/68 100 Room Air General Appearance: A 47 year-old female who appears well-developed, well- nourished, in no acute distress. HEENT: Head normocephalic, atraumatic. Pupils equal, round, reactive to light and accommodate. Sclerae are slightly jaundice. Nasal turbinates pink without erythema or nasal discharge. Mucous membranes pink and moist without lesions. Oropharynx clear without any exudate or discharge. NECK: Supple. Trachea midline, No thyromegaly, No cervical lymphadenopathy, No mass, No carotid bruits, No JVD, Carotid pulses 2+ bilaterally. PULMONARY: Clear to auscultaion bilaterally, No retractions, Chest expansion symmetric bilaterally, no rales, no ronchi, no dulness on percussion. CARDIAC: Normal SI and S2, Regular rate and rythm, no murmur, gallop, or rub. GASTROINTESTINAL: Abdomen is soft, non-tender, Non Rigid, No distention, Positive bowel sounds x4 quadrants, Liver normal. SKIN: Warm, dry, no rash, no bruise, no echmosis. EXTREMITIES: Bilateral lower extremities normal, no edema, no phlabitus, pulse palpable, no contracture. MUSCULOSKELETAL: Spine Normal, Non-tender, Normal range of motion, No swelling, no deformity, no clubbing, or cyanosis, the patient has no edema to bilateral lower extremities, dorsalis pedis pulses palpable bilaterally. NEUROLOGIC: The patient is awake, alert, oriented, responding to yes/no questions appropriately, moving all extremities, cranial nerve intact, normal strenght, normal power, normal coordination, normal gait. Allergies Coded Allergies: No Known Allergy (Unverified , 02/10/17) PMH No change Social Hx No change Family Hx No change Assessment/Plan Impression Jaundice/anemia/abnormal LFT/history of renal insufficiency Plan Patient slowly getting better, less discomfort than before, Patient encouraged to follow with the primary care physician, Recent lab showed a bilirubin 4.9, and has gone up, We will repeat again in 2 weeks CBC and BMP, and patient need to follow with the primary care physician, or GI, Any fever or severe abdominal pain patient advised to go to the ER, Monitor for jaundice, discussed with the patient, Medications Home Meds Active Scripts Pantoprazole* (Pantoprazole*) 40 Mg Tablet.dr, 40 MG PO AC BREAKFAST for 30 Days , #30 TAB Prov:LAUREN CHOI MD 02/24/17 Ibuprofen* (Ibuprofen*) 200 Mg Capsule, 200 MG PO Q6 Y for PAIN for 30 Days, # 30 CAP please take with food or milk Prov:LAUREN CHOI MD 02/24/17 DAVON HAM MD Mar 09, 2017 12:28
== END 2017-03-09 15:44 | disposition home or self-care (01) ==
LOC: DCC 11:29
PROVIDERS: ATTEND Internal Medicine
DX: R17 Unspecified jaundice (principal); D64.9 Anemia, unspecified; R79.89 Other specified abnormal findings of blood chemistry
CPT/HCPCS: G0463

== ENCOUNTER 2017-03-23 14:58 | Outpatient (CLI) | END 2017-03-23 15:55 | disposition home or self-care (01) ==